=== PATIENT | female | born 1930 | race Caucasian/White ===

== ENCOUNTER → 2016-05-07 | Outpatient (CLI) | payer MEDICARE, OTHER | LOC: MW.CHORTHO 08:00 | CPT/HCPCS: 20610-50; G0463; J1040 ==

== ENCOUNTER 2017-03-08 12:45 | Emergency (ER) | payer MEDICARE, OTHER ==
[2017-03-08] MEDS ORDERED: Sodium Chloride 0.9% 1,000 ML IV ONE (13:00)
--- NOTE | 2017-03-08 13:22 | EDM.PDOC ---
ED HPI GENERAL MEDICAL PROBLEM - General Chief Complaint: Gastrointestinal Problem Stated Complaint: POSSIBLE FLU Time Seen by Provider: 03/08/17 13:00 Source of Information: Reports: Patient History Limitations: Reports: No Limitations - History of Present Illness INITIAL COMMENTS - FREE TEXT/NARRATIVE: History of present illness: [86-year-old female comes in complaining that she feels she has the flu. Patient indicates she's been unwell off and on for last couple months. Patient indicates she's been unable to eat.] Review of systems: As per history of present illness and below otherwise all systems reviewed and negative. Past medical history: As per history of present illness and as reviewed below otherwise noncontributory. Surgical history: As per history of present illness and as reviewed below otherwise noncontributory. Social history: No reported history of drug or alcohol abuse. Family history: As per history of present illness and as reviewed below otherwise noncontributory. Physical exam: HEENT: Atraumatic, normocephalic, pupils reactive, negative for conjunctival pallor or scleral icterus, mucous membranes moist, throat clear, neck supple, nontender, trachea midline. Lungs: Clear to auscultation, breath sounds equal bilaterally, chest nontender. Heart: S1S2, regular, negative for clicks, rubs, or JVD. Abdomen: Soft, nondistended, nontender. Negative for masses or hepatosplenomegaly. Negative for costovertebral tenderness. Pelvis: Stable nontender. Genitourinary: Deferred. Rectal: Deferred. Extremities: Atraumatic, negative for cords or calf pain. Neurovascular unremarkable. Neuro: Awake, alert, oriented. Cranial nerves II through XII unremarkable. Cerebellum unremarkable. Motor and sensory unremarkable throughout. Exam nonfocal. Labs are within normal limits influenza is negative Patient acknowledges that she could eat a popsicle at this time and no longer feels unwell she just doesn't have an appetite. Diagnostics: [CBC, CMP, influenza and B] Therapeutics: [] Impression: Worried well[] Plan: [Follow-up with primary care provider] Definitive disposition and diagnosis as appropriate pending reevaluation and review of above. - Related Data Allergies Allergy/AdvReac Type Severity Reaction Status Date / Time Penicillins Allergy Swelling Verified 03/08/17 12:55 procaine HCl [From Novocain] Allergy Difficulty Verified 03/08/17 12:55 Breathing Sulfa (Sulfonamide Allergy Cannot Verified 03/08/17 12:55 Antibiotics) Remember Home Meds: Home Meds Gabapentin [Neurontin] 600 mg PO BID 07/22/15 [History] amLODIPine Besylate [Amlodipine Besylate] 1 tab PO DAILY 07/22/15 [History] Erythromycin Base [Erythromycin 0.5% Ophth Oint] 1 applic EYEBOTH BEDTIME [History] Carboxymethylcellulose Sodium [Refresh Celluvisc] 1 drop EYEBOTH QID 09/21/15 [ History] Levothyroxine [Synthroid] 100 mcg PO ACBREAKFAST 09/21/15 [History] Losartan [Cozaar] 100 mg PO DAILY 09/21/15 [History] atorvaSTATin [Lipitor] 40 mg PO BEDTIME 09/21/15 [History] prednisoLONE Acetate [Pred Forte 1% Ophth Susp] 1 drop EYELF DAILY 09/21/15 [ History] Polyvinyl Alcohol [LiquiTears 1.4% Ophth Soln] 1 drop EYEBOTH QID PRN #0 bottle 09/22/15 [Rx] Acyclovir 400 mg PO BID 03/08/17 [History] Ascorbic Acid [Vitamin C] 1,000 mg PO DAILY 03/08/17 [History] Aspirin [Halfprin] 81 mg PO DAILY 03/08/17 [History] Cholecalciferol (Vitamin D3) [Vitamin D3] 1,000 unit PO DAILY 03/08/17 [History] Denosumab [Xgeva] 60 mg PO DAILY 03/08/17 [History] Psyllium [Metamucil] 0.52 gm PO DAILY 03/08/17 [History] guaiFENesin/Codeine Phosphate [Codeine-Guaifen 10-100 mg/5 ml] 5 ml PO DAILY 04/24 [History] Past Medical History HEENT History: Reports: None Cardiovascular History: Reports: High Cholesterol, Hypertension Respiratory History: Reports: COPD Gastrointestinal History: Reports: Diverticulosis Genitourinary History: Reports: None 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 DEAN History: Reports: None Musculoskeletal History: Reports: None Neurological History: Reports: Other (See Below) Other Neuro History: facial nerve pain Psychiatric History: Reports: None Endocrine/Metabolic History: Reports: Hypothyroidism Hematologic History: Reports: None Immunologic History: Reports: None Oncologic (Cancer) History: Reports: None Dermatologic History: Reports: None - Infectious Disease History Infectious Disease History: Reports: Chicken Pox, Shingles - Past Surgical History Head Surgeries/Procedures: Reports: None HEENT Surgical History: Reports: Other (See Below) Other HEENT Surgeries/Procedures: cornea transplant Cardiovascular Surgical History: Reports: None Respiratory Surgical History: Reports: None GI Surgical History: Reports: None Female Surgical History: Reports: None Endocrine Surgical History: Reports: None Musculoskeletal Surgical History: Reports: Other (See Below) Social & Family History - Family History Family Medical History: Noncontributory - Tobacco Use Smoking Status *Q: Never Smoker Second Hand Smoke Exposure: No - Caffeine Use Caffeine Use: Reports: Coffee - Recreational Drug Use Recreational Drug Use: No ED ROS GENERAL - Review of Systems Review Of Systems: See Below (History of present illness) ED EXAM, GENERAL - Physical Exam Exam: See Below (History of present illness) Course - Vital Signs Last Recorded V/S: Last Vital Signs Temp 36.7 C 03/08/17 12:56 Pulse 98 03/08/17 12:56 Resp 18 03/08/17 12:56 BP 131/63 03/08/17 12:56 Pulse Ox 97 03/08/17 12:56 - Orders/Labs/Meds Labs: Laboratory Tests 03/08/17 03/08/17 Range/Units 13:18 13:18 WBC 7.71 (4.0-11.0) K/uL RBC 4.05 L (4.30-5.90) M/uL Hgb 13.2 (12.0-16.0) g/dL Hct 39.4 (36.0-46.0) % MCV 97.3 (80.0-98.0) fL MCH 32.6 H (27.0-32.0) pg MCHC 33.5 (31.0-37.0) g/dL RDW Std Deviation 48.5 (28.0-62.0) fl RDW Coeff of Josselyn 14 (11.0-15.0) % Plt Count 245 (150-400) K/uL MPV 10.30 (7.40-12.00) fL Neut % (Auto) 67.8 (48.0-80.0) % Lymph % (Auto) 21.7 (16.0-40.0) % [place] % (Auto) 9.7 (0.0-15.0) % Eos % (Auto) 0.5 (0.0-7.0) % Baso % (Auto) 0.3 (0.0-1.5) % Neut # (Auto) 5.2 (1.4-5.7) K/uL Lymph # (Auto) 1.7 (0.6-2.4) K/uL [place] # (Auto) 0.8 (0.0-0.8) K/uL Eos # (Auto) 0.0 (0.0-0.7) K/uL Baso # (Auto) 0.0 (0.0-0.1) K/uL Nucleated RBC % 0.0 /100WBC Nucleated RBCs # 0 K/uL Sodium 142 (136-146) mmol/L Potassium 3.5 (3.5-5.1) mmol/L Chloride 109 (98-110) mmol/L Carbon Dioxide 16 L (21-31) mmol/L BUN 27 H (6.0-23.0) mg/dL Creatinine 1.3 (0.6-1.5) mg/dL Est Cr Clr Drug Dosing 26.76 mL/min Estimated GFR (MDRD) 38.7 ml/min Glucose 101 (60-110) mg/dL Calcium 9.0 (8.8-10.8) mg/dL Total Bilirubin 0.7 (0.1-1.5) mg/dL AST 26 (5-40) IU/L ALT 23 (8-54) IU/L Alkaline Phosphatase 50 (40-150) Total Protein 6.8 (6.0-8.0) g/dL Albumin 3.9 (3.4-4.8) g/dL Globulin 2.9 (2.0-3.5) g/dL Albumin/Globulin Ratio 1.3 (1.3-2.8) Meds: Medications Discontinued Medications Generic Name Dose Route Start Last Admin Trade Name Freq PRN Reason Stop Dose Admin Sodium Chloride 1,000 mls @ 999 mls/hr 03/08/17 13:00 Normal Saline IV 03/08/17 14:00 STAT ONE Departure - Departure Time of Disposition: 14:55 Disposition: Home, Self-Care 01 Condition: Good Clinical Impression: Physically well but worried - Discharge Information Referrals: James Foster MD [Primary Care Provider] - Forms: ED Department Discharge Additional Instructions: The following information is given to patients seen in the emergency department who are being discharged to home. This information is to outline your options for follow-up care. We provide all patients seen in our emergency department with a follow-up referral. The need for follow-up, as well as the timing and circumstances, are variable depending upon the specifics of your emergency department visit. If you don't have a primary care physician on staff, we will provide you with a referral. We always advise you to contact your personal physician following an emergency department visit to inform them of the circumstance of the visit and for follow-up with them and/or the need for any referrals to a consulting specialist. The emergency department will also refer you to a specialist when appropriate. This referral assures that you have the opportunity for follow-up care with a specialist. All of these measure are taken in an effort to provide you with optimal care, which includes your follow-up. Under all circumstances we always encourage you to contact your private physician who remains a resource for coordinating your care. When calling for follow-up care, please make the office aware that this follow-up is from your recent emergency room visit. If for any reason you are refused follow-up, please contact the [facility] Emergency Department at and asked to speak to the emergency department charge nurse. Follow-up with your primary care as discussed Return to ED as needed as discussed
[2017-03-08 15:27] VITALS: BP 180/78
== END 2017-03-08 15:22 | disposition home or self-care (01) ==
LOC: MW.ED 12:45
DX: Z71.1 Person with feared health complaint in whom no diagnosis is made (principal); E78.00 Pure hypercholesterolemia, unspecified; I10 Essential (primary) hypertension; Z88.0 Allergy status to penicillin; Z88.2 Allergy status to sulfonamides; Z79.899 Other long term (current) drug therapy; Z79.82 Long term (current) use of aspirin
CPT/HCPCS: 36415; 80053; 85025; 87804; 99283; J7040; 99282

== ENCOUNTER 2017-03-08 22:44 | Emergency (ER) | payer MEDICARE, OTHER ==
[2017-03-08 23:48] VITALS: BP 142/69
--- NOTE | 2017-03-09 00:10 | EDM.PDOC ---
ED HPI GENERAL MEDICAL PROBLEM - General Chief Complaint: Head Injury Stated Complaint: FALL/HIT HEAD Time Seen by Provider: 03/09/17 00:08 Source of Information: Reports: Patient History Limitations: Reports: No Limitations - History of Present Illness INITIAL COMMENTS - FREE TEXT/NARRATIVE: History of present illness: [86-year-old female seen by me earlier today returns today status post mechanical fall. Patient indicates that she was turning and had too much momentum and lost her balance and fell over. Patient denies any loss of consciousness and stated that after she gone to bed she did feel some transient nausea called her grandson who is a physician who recommended she come in and have her head scan. Patient indicates that she feels fine but is willing to comply with the head scan secondary to the wishes of her grandson] Review of systems: As per history of present illness and below otherwise all systems reviewed and negative. Past medical history: As per history of present illness and as reviewed below otherwise noncontributory. Surgical history: As per history of present illness and as reviewed below otherwise noncontributory. Social history: No reported history of drug or alcohol abuse. Family history: As per history of present illness and as reviewed below otherwise noncontributory. Physical exam: HEENT: Atraumatic, normocephalic, pupils reactive, negative for conjunctival pallor or scleral icterus, mucous membranes moist, throat clear, neck supple, nontender, trachea midline. Lungs: Clear to auscultation, breath sounds equal bilaterally, chest nontender. Heart: S1S2, regular, negative for clicks, rubs, or JVD. Abdomen: Soft, nondistended, nontender. Negative for masses or hepatosplenomegaly. Negative for costovertebral tenderness. Pelvis: Stable nontender. Genitourinary: Deferred. Rectal: Deferred. Extremities: Atraumatic, negative for cords or calf pain. Neurovascular unremarkable. Neuro: Awake, alert, oriented. Cranial nerves II through XII unremarkable. Cerebellum unremarkable. Motor and sensory unremarkable throughout. Exam nonfocal. All assessment is benign CT of head is negative for acute changes Diagnostics: [] Therapeutics: [] Impression: [Mechanical fall] Plan: [Follow up with primary care] Definitive disposition and diagnosis as appropriate pending reevaluation and review of above. Occipital Head Pain Score (Numeric/FACES): 2 - Related Data Allergies Allergy/AdvReac Type Severity Reaction Status Date / Time Penicillins Allergy Swelling Verified 03/08/17 12:55 procaine HCl [From Novocain] Allergy Difficulty Verified 03/08/17 12:55 Breathing Sulfa (Sulfonamide Allergy Cannot Verified 03/08/17 12:55 Antibiotics) Remember Home Meds: Home Meds Gabapentin [Neurontin] 600 mg PO BID 07/22/15 [History] amLODIPine Besylate [Amlodipine Besylate] 1 tab PO DAILY 07/22/15 [History] Erythromycin Base [Erythromycin 0.5% Ophth Oint] 1 applic EYEBOTH BEDTIME [History] Carboxymethylcellulose Sodium [Refresh Celluvisc] 1 drop EYEBOTH QID 09/21/15 [ History] Levothyroxine [Synthroid] 100 mcg PO ACBREAKFAST 09/21/15 [History] Losartan [Cozaar] 100 mg PO DAILY 09/21/15 [History] atorvaSTATin [Lipitor] 40 mg PO BEDTIME 09/21/15 [History] prednisoLONE Acetate [Pred Forte 1% Ophth Susp] 1 drop EYELF DAILY 09/21/15 [ History] Polyvinyl Alcohol [LiquiTears 1.4% Ophth Soln] 1 drop EYEBOTH QID PRN #0 bottle 09/22/15 [Rx] Acyclovir 400 mg PO BID 03/08/17 [History] Ascorbic Acid [Vitamin C] 1,000 mg PO DAILY 03/08/17 [History] Aspirin [Halfprin] 81 mg PO DAILY 03/08/17 [History] Cholecalciferol (Vitamin D3) [Vitamin D3] 1,000 unit PO DAILY 03/08/17 [History] Denosumab [Xgeva] 60 mg PO DAILY 03/08/17 [History] Psyllium [Metamucil] 0.52 gm PO DAILY 03/08/17 [History] guaiFENesin/Codeine Phosphate [Codeine-Guaifen 10-100 mg/5 ml] 5 ml PO DAILY 04/24 [History] Past Medical History HEENT History: Reports: None Cardiovascular History: Reports: High Cholesterol, Hypertension Respiratory History: Reports: COPD Gastrointestinal History: Reports: Diverticulosis Genitourinary History: Reports: None BASKET MENDER History: Reports: None Musculoskeletal History: Reports: None Neurological History: Reports: Other (See Below) Other Neuro History: facial nerve pain Psychiatric History: Reports: None Endocrine/Metabolic History: Reports: Hypothyroidism Hematologic History: Reports: None Immunologic History: Reports: None Oncologic (Cancer) History: Reports: None Dermatologic History: Reports: None - Infectious Disease History Infectious Disease History: Reports: Chicken Pox, Shingles - Past Surgical History Head Surgeries/Procedures: Reports: None HEENT Surgical History: Reports: Other (See Below) Other HEENT Surgeries/Procedures: cornea transplant Cardiovascular Surgical History: Reports: None Respiratory Surgical History: Reports: None GI Surgical History: Reports: None Female Surgical History: Reports: None Endocrine Surgical History: Reports: None Musculoskeletal Surgical History: Reports: Other (See Below) Social & Family History - Family History Family Medical History: Noncontributory - Tobacco Use Smoking Status *Q: Never Smoker Second Hand Smoke Exposure: No - Caffeine Use Caffeine Use: Reports: Coffee - Recreational Drug Use Recreational Drug Use: No ED ROS GENERAL - Review of Systems Review Of Systems: See Below (The history of present illness) ED EXAM, HEAD INJURY - Physical Exam Exam: See Below (History of present illness) Course - Vital Signs Last Recorded V/S: Last Vital Signs Temp 37.2 C 03/08/17 23:33 Pulse 79 03/08/17 23:33 Resp 18 03/08/17 23:33 BP 142/69 H 03/08/17 23:33 Pulse Ox 95 03/08/17 23:33 - Orders/Labs/Meds Orders: Active Orders 24 hr Category Date Time Status Head wo Cont [CT] Stat Exams 03/08/17 23:02 Taken Departure - Departure Time of Disposition: 00:09 Disposition: Home, Self-Care 01 Condition: Good Clinical Impression: Fall - Discharge Information Instructions: Concussion, Adult, [id number], Head Injury, Adult, [id number] , Post-Concussion Syndrome, [id number] Referrals: PCP,None [Primary Care Provider] - Additional Instructions: The following information is given to patients seen in the emergency department who are being discharged to home. This information is to outline your options for follow-up care. We provide all patients seen in our emergency department with a follow-up referral. The need for follow-up, as well as the timing and circumstances, are variable depending upon the specifics of your emergency department visit. If you don't have a primary care physician on staff, we will provide you with a referral. We always advise you to contact your personal physician following an emergency department visit to inform them of the circumstance of the visit and for follow-up with them and/or the need for any referrals to a consulting specialist. The emergency department will also refer you to a specialist when appropriate. This referral assures that you have the opportunity for follow-up care with a specialist. All of these measure are taken in an effort to provide you with optimal care, which includes your follow-up. Under all circumstances we always encourage you to contact your private physician who remains a resource for coordinating your care. When calling for follow-up care, please make the office aware that this follow-up is from your recent emergency room visit. If for any reason you are refused follow-up, please contact the [facility] Emergency Department at and asked to speak to the emergency department charge nurse. You're being discharged to home per your request Please follow-up with your primary care as discussed Return to ED as needed as discussed - My Orders Last 24 Hours: My Active Orders 03/08/17 23:02 Head wo Cont [CT] Stat - Assessment/Plan Last 24 Hours: My Active Orders 03/08/17 23:02 Head wo Cont [CT] Stat
--- NOTE | 2017-03-09 10:44 | CT ---
EXAM DATE: 03/08/17 PATIENT'S AGE: 86 Patient: ANNA SCHULTZ Facility: [place], [place] Site . Site : [id number] Study: CT Head WO CONT [id number] 11:19:22 PM Ordering Physician: Doctor Savage Final Report: INDICATION: 86-year-old female. Status post fall, hitting back of head earlier tonight. TECHNIQUE: CT Head without i.v. contrast. COMPARISON: None FINDINGS: CSF spaces: Within normal limits for age. Brain parenchyma: Mild diffuse cortical atrophy is noted. There are low attenuation white matter changes, likely due to chronic microvascular disease. The brain parenchyma is normal in appearance with preservation of the nicholas- white matter junction. No sign of mass, hemorrhage, or midline shift seen. Skull base and calvarium: The visualized paranasal sinuses are well aerated. The mastoid air cells are clear. The visualized orbits are grossly unremarkable. No skull fractures are seen. IMPRESSION: 1. No evidence of acute infarction, intracranial hemorrhage, or mass effect seen. 2. Mild age-related atrophy and chronic microvascular disease. Dictated by Ez Wright MD @ 03/08/2017 11:37:24 PM Dictated by: Ez Wright MD @ 03/08/2017 23:37:30 (Electronic Signature) Report Signed by Proxy. [facility]
== END 2017-03-09 00:37 | disposition home or self-care (01) ==
LOC: MW.ED 22:44
DX: S09.90XA Unspecified injury of head, initial encounter (principal); I10 Essential (primary) hypertension; E78.00 Pure hypercholesterolemia, unspecified; J44.9 Chronic obstructive pulmonary disease, unspecified; Z79.82 Long term (current) use of aspirin; Z79.899 Other long term (current) drug therapy; Z88.0 Allergy status to penicillin; Z88.2 Allergy status to sulfonamides; W01.198A Fall on same level from slipping, tripping and stumbling with subsequent striking against other object, initial encounter; Z71.1 Person with feared health complaint in whom no diagnosis is made
CPT/HCPCS: 36415; 70450; 80053; 85025; 87804; 99283; J7040; 99282

== ENCOUNTER 2017-04-19 11:07 | Emergency (ER) | payer MEDICARE, OTHER ==
[2017-04-19] MEDS ORDERED: Sodium Chloride 0.9% 500 ML IV SCH (12:30)
[2017-04-19] MEDS ORDERED: Ondansetron 4 MG/2 ML SDV IVPUSH ONE (12:30)
--- NOTE | 2017-04-19 12:33 | EDM.PDOC ---
ED HPI GENERAL MEDICAL PROBLEM - General Chief Complaint: Abdominal Pain Stated Complaint: PT SAY SHE FEELS SICK TO HER STOMACH Time Seen by Provider: 04/19/17 12:15 Source of Information: Reports: Patient, Family History Limitations: Reports: No Limitations - History of Present Illness INITIAL COMMENTS - FREE TEXT/NARRATIVE: HISTORY AND PHYSICAL: History of present illness: [Comes to the emergency room accompanied by her daughter. Patient states that she woke up this morning feeling nauseated. She had several episodes of diarrhea yesterday but has not had any vomiting. No blood in her stools. Her appetite is decreased due to the nausea. Has had several UTI's over the past couple months. Follows regularly w/ Dr. Foster. Had abdominal U/S in the past couple of weeks, with normal results. Daughter states that mom has been experiencing episodes of nausea for the last several months and no cause has been identified No fever or chills. no recent illness or infection. No flulike symptoms. No muscle or joint aches or pains. Denies chest pain, SOA, difficulty breathing. Denies abd pain. No burning w/ urination or urinary frequency. ] Review of systems: As per history of present illness and below otherwise all systems reviewed and negative. Past medical history: As per history of present illness and as reviewed below otherwise noncontributory. Surgical history: As per history of present illness and as reviewed below otherwise noncontributory. Social history: No reported history of drug or alcohol abuse. Family history: As per history of present illness and as reviewed below otherwise noncontributory. Physical exam: HEENT: Atraumatic, normocephalic. Oral mucous membranes are mildly dry. Neck supple, no lymphadenopathy. Skin: Warm dry, frail and thin. Lungs: Clear to auscultation, breath sounds equal bilaterally. Heart: S1S2, regular rate and rhythm. Abdomen: Bowel sounds are normal active throughout. Abdomen is soft, nondistended, nontender. Negative for masses, guarding or rebound. Pelvis: Stable nontender. Genitourinary: Deferred. Rectal: Deferred. Extremities: Atraumatic, no cyanosis or edema to feet or lower legs. Neurovascular unremarkable. Neuro: Awake, alert, oriented. Motor and sensory unremarkable throughout. Exam nonfocal. Diagnostics: [CBC, CMP, UA, amylase, lipase] Therapeutics: [500mL NS, Zofran 4mg IV] Impression: [Nausea] Plan: [Patient's nausea improved with Zofran and 500 mL as normal saline. Labs are unremarkable except slight bump in amylase. Offered CT scan of abdomen which patient declined stating that she would like to follow-up with Dr. Foster for any more testing is done. I agree with patient's decision particularly for the amount of time that she's had these symptoms. Strict return precautions are reviewed. Patient verbalized understanding of today's discussion.] Definitive disposition and diagnosis as appropriate pending reevaluation and review of above. - Related Data Allergies Allergy/AdvReac Type Severity Reaction Status Date / Time Penicillins Allergy Swelling Verified 04/19/17 11:24 procaine HCl [From Novocain] Allergy Difficulty Verified 04/19/17 11:24 Breathing Sulfa (Sulfonamide Allergy Cannot Verified 04/19/17 11:24 Antibiotics) Remember Home Meds: Home Meds Gabapentin [Neurontin] 600 mg PO BID 07/22/15 [History] amLODIPine Besylate [Amlodipine Besylate] 1 tab PO DAILY 07/22/15 [History] Erythromycin Base [Erythromycin 0.5% Ophth Oint] 1 applic EYEBOTH BEDTIME [History] Carboxymethylcellulose Sodium [Refresh Celluvisc] 1 drop EYEBOTH QID 09/21/15 [ History] Levothyroxine [Synthroid] 100 mcg PO ACBREAKFAST 09/21/15 [History] Losartan [Cozaar] 100 mg PO DAILY 09/21/15 [History] atorvaSTATin [Lipitor] 40 mg PO BEDTIME 09/21/15 [History] prednisoLONE Acetate [Pred Forte 1% Ophth Susp] 1 drop EYELF DAILY 09/21/15 [ History] Polyvinyl Alcohol [LiquiTears 1.4% Ophth Soln] 1 drop EYEBOTH QID PRN #0 bottle 09/22/15 [Rx] Acyclovir 400 mg PO BID 03/08/17 [History] Ascorbic Acid [Vitamin C] 1,000 mg PO DAILY 03/08/17 [History] Aspirin [Halfprin] 81 mg PO DAILY 03/08/17 [History] Cholecalciferol (Vitamin D3) [Vitamin D3] 1,000 unit PO DAILY 03/08/17 [History] Denosumab [Xgeva] 60 mg PO DAILY 03/08/17 [History] Psyllium [Metamucil] 0.52 gm PO DAILY 03/08/17 [History] guaiFENesin/Codeine Phosphate [Codeine-Guaifen 10-100 mg/5 ml] 5 ml PO DAILY 04/24 [History] Past Medical History HEENT History: Reports: None Cardiovascular History: Reports: High Cholesterol, Hypertension Respiratory History: Reports: COPD Gastrointestinal History: Reports: Diverticulosis Genitourinary History: Reports: UTI, Recurrent 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: Reports: None Musculoskeletal History: Reports: None Neurological History: Reports: Other (See Below) Other Neuro History: facial nerve pain Psychiatric History: Reports: None Endocrine/Metabolic History: Reports: Hypothyroidism Hematologic History: Reports: None Immunologic History: Reports: None Oncologic (Cancer) History: Reports: None Dermatologic History: Reports: None - Infectious Disease History Infectious Disease History: Reports: Chicken Pox, Measles, Mumps, Shingles - Past Surgical History Head Surgeries/Procedures: Reports: None HEENT Surgical History: Reports: Other (See Below) Other HEENT Surgeries/Procedures: 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 Cardiovascular Surgical History: Reports: None Respiratory Surgical History: Reports: None GI Surgical History: Reports: None Female Surgical History: Reports: None Endocrine Surgical History: Reports: None Musculoskeletal Surgical History: Reports: Other (See Below) Social & Family History - Family History Family Medical History: Noncontributory - Tobacco Use Smoking Status *Q: Never Smoker Second Hand Smoke Exposure: No - Caffeine Use Caffeine Use: Reports: Coffee - Recreational Drug Use Recreational Drug Use: No ED ROS GENERAL - Review of Systems Review Of Systems: See Below ED EXAM, GI/ABD - Physical Exam Exam: See Below Course - Vital Signs Last Recorded V/S: Last Vital Signs Temp 99.6 F 04/19/17 11:20 Pulse 83 04/19/17 14:51 Resp 18 04/19/17 14:51 BP 126/62 04/19/17 14:51 Pulse Ox 98 04/19/17 14:51 - Orders/Labs/Meds Orders: Active Orders 24 hr Category Date Time Status UA W/MICROSCOPIC [URIN] Stat Lab 04/19/17 13:58 Ordered Labs: Laboratory Tests 02/13/18 02/13/18 Range/Units 12:44 12:44 WBC 4.39 (4.0-11.0) K/uL RBC 3.37 L (4.30-5.90) M/uL Hgb 10.9 L (12.0-16.0) g/dL Hct 33.3 L (36.0-46.0) % MCV 98.8 H (80.0-98.0) fL MCH 32.3 H (27.0-32.0) pg MCHC 32.7 (31.0-37.0) g/dL RDW Std Deviation 48.4 (28.0-62.0) fl RDW Coeff of Josselyn 13 (11.0-15.0) % Plt Count 184 (150-400) K/uL MPV 10.30 (7.40-12.00) fL Add Manual Diff YES Neutrophils % (Manual) 51 (48.0-80.0) % Band Neutrophils % 1 % Lymphocytes % (Manual) 28 (16.0-40.0) % Monocytes % (Manual) 17 H (0.0-15.0) % Eosinophils % (Manual) 2 (0.0-7.0) % Basophils % (Manual) 1 (0.0-1.5) % Nucleated RBC % 0.0 /100WBC Absolute Seg Neuts 2.2 (1.4-5.7) Band Neutrophils # 0 Lymphocytes # (Manual) 1.2 (0.6-2.4) Monocytes # (Manual) 0.7 (0.0-0.8) Eosinophils # (Manual) 0.1 (0.0-0.7) Basophils # (Manual) 0.0 (0.0-0.1) Nucleated RBCs # 0 K/uL Sodium 140 (136-146) mmol/L Potassium 4.1 (3.5-5.1) mmol/L Chloride 107 (98-110) mmol/L Carbon Dioxide 22 (21-31) mmol/L BUN 28 H (6.0-23.0) mg/dL Creatinine 1.0 (0.6-1.5) mg/dL Est Cr Clr Drug Dosing 28.47 mL/min Estimated GFR (MDRD) 52.4 ml/min Glucose 104 (60-110) mg/dL Calcium 9.2 (8.8-10.8) mg/dL Total Bilirubin 0.4 (0.1-1.5) mg/dL AST 27 (5-40) IU/L ALT 16 (8-54) IU/L Alkaline Phosphatase 48 (40-150) Total Protein 6.0 (6.0-8.0) g/dL Albumin 3.6 (3.4-4.8) g/dL Globulin 2.4 (2.0-3.5) g/dL Albumin/Globulin Ratio 1.5 (1.3-2.8) Amylase 93 H (10-90) U/L Lipase 10 (7-80) U/L Meds: Medications Discontinued Medications Generic Name Dose Route Start Last Admin Trade Name Freq PRN Reason Stop Dose Admin Sodium Chloride 500 mls @ 999 mls/hr 04/19/17 12:30 04/19/17 13:12 Normal Saline IV 999 mls/hr STAT RIGOBERTO Administration Ondansetron HCl 4 mg 04/19/17 12:30 04/19/17 12:45 Zofran IVPUSH 04/19/17 12:31 4 mg ONETIME ONE Administration Departure - Departure Time of Disposition: 14:35 Disposition: Home, Self-Care 01 Condition: Good Clinical Impression: Nausea - Discharge Information Instructions: Nausea, Adult, [id number] Referrals: James Foster MD [Primary Care Provider] - Forms: ED Department Discharge Additional Instructions: The following information is given to patients seen in the emergency department who are being discharged to home. This information is to outline your options for follow-up care. We provide all patients seen in our emergency department with a follow-up referral. The need for follow-up, as well as the timing and circumstances, are variable depending upon the specifics of your emergency department visit. If you don't have a primary care physician on staff, we will provide you with a referral. We always advise you to contact your personal physician following an emergency department visit to inform them of the circumstance of the visit and for follow-up with them and/or the need for any referrals to a consulting specialist. The emergency department will also refer you to a specialist when appropriate. This referral assures that you have the opportunity for follow-up care with a specialist. All of these measure are taken in an effort to provide you with optimal care, which includes your follow-up. Under all circumstances we always encourage you to contact your private physician who remains a resource for coordinating your care. When calling for follow-up care, please make the office aware that this follow-up is from your recent emergency room visit. If for any reason you are refused follow-up, please contact the [facility] emergency department at and asked to speak to the emergency department charge nurse. [address] [address] Follow-up with your primary care provider at the clinic listed above in the next 48-72 hours. Push fluids as much as possible. Return to ER as needed as discussed. - My Orders Last 24 Hours: My Active Orders 04/19/17 13:58 UA W/MICROSCOPIC [URIN] Stat - Assessment/Plan Last 24 Hours: My Active Orders 04/19/17 13:58 UA W/MICROSCOPIC [URIN] Stat
[2017-04-19 16:22] VITALS: BP 126/62
== END 2017-04-19 14:51 | disposition home or self-care (01) ==
LOC: MW.ED 11:07
DX: R11.0 Nausea (principal); I10 Essential (primary) hypertension; E78.00 Pure hypercholesterolemia, unspecified; J44.9 Chronic obstructive pulmonary disease, unspecified; E03.9 Hypothyroidism, unspecified; Z79.82 Long term (current) use of aspirin; Z79.899 Other long term (current) drug therapy; Z88.0 Allergy status to penicillin; Z88.2 Allergy status to sulfonamides; Z88.6 Allergy status to analgesic agent
CPT/HCPCS: 36415; 80053; 82150; 83690; 85025; 96361; 96374; 99284; J2405; J7040; 99283

== ENCOUNTER 2017-05-11 11:33 | Emergency (ER) | payer MEDICARE, OTHER ==
--- NOTE | 2017-05-11 12:41 | EDM.PDOC ---
ED HPI GENERAL MEDICAL PROBLEM - General Chief Complaint: Back Pain or Injury Stated Complaint: BACK PAIN/NOT FEELING WELL Time Seen by Provider: 05/11/17 11:50 Source of Information: Reports: Patient History Limitations: Reports: No Limitations - History of Present Illness INITIAL COMMENTS - FREE TEXT/NARRATIVE: History of present illness: []Patient has had low back pain since February 2017 that is intermittent and worsening. He was diagnosed with sciatica with pain going down to her buttocks which has improved and then 2 weeks ago has and having worsening left sided low back pain over her iliac joint. She denies any falls or trauma, difficulty urinating, fevers, chills, nausea, vomiting or diarrhea. Patient fractured her shoulder in 2016 is requesting the pain med that she receives then. Review of systems: As per history of present illness and below otherwise all systems reviewed and negative. Past medical history: As per history of present illness and as reviewed below otherwise noncontributory. Surgical history: As per history of present illness and as reviewed below otherwise noncontributory. Social history: No reported history of drug or alcohol abuse. Family history: As per history of present illness and as reviewed below otherwise noncontributory. Physical exam: General: Well developed, well nourished in NAD HEENT: Atraumatic, normocephalic, pupils reactive, negative for conjunctival pallor or scleral icterus, mucous membranes moist, throat clear, neck supple, nontender, trachea midline. Lungs: Clear to auscultation, breath sounds equal bilaterally, chest nontender. Heart: S1S2, regular, negative for clicks, rubs, or JVD. Abdomen: Soft, nondistended, nontender. Negative for masses or hepatosplenomegaly. Negative for costovertebral tenderness. Pelvis: Stable nontender. Genitourinary: Deferred. Rectal: Deferred. Extremities: Atraumatic, negative for cords or calf pain. Neurovascular unremarkable. Neuro: Awake, alert, oriented. Cranial nerves II through XII unremarkable. Cerebellum unremarkable. Motor and sensory unremarkable throughout. Exam nonfocal. Diagnostics: []X-rays pelvis and lumbar spine show degenerative changes with no acute findings Therapeutics: []Patient declined pain meds in the ED Impression: []Degenerative joint disease Plan: []Percocet as directed for pain 30 tablets 5/325mg given with no refills follow up with primary care as needed. Definitive disposition and diagnosis as appropriate pending reevaluation and review of above. Lower Back Pain Score (Numeric/FACES): 5 - Related Data Allergies Allergy/AdvReac Type Severity Reaction Status Date / Time Penicillins Allergy Swelling Verified 05/11/17 11:52 procaine HCl [From Novocain] Allergy Difficulty Verified 05/11/17 11:52 Breathing Sulfa (Sulfonamide Allergy Cannot Verified 05/11/17 11:52 Antibiotics) Remember Home Meds: Home Meds Gabapentin [Neurontin] 600 mg PO BID 07/22/15 [History] amLODIPine Besylate [Amlodipine Besylate] 1 tab PO DAILY 07/22/15 [History] Carboxymethylcellulose Sodium [Refresh Celluvisc] 1 drop EYEBOTH QID 09/21/15 [ History] Levothyroxine [Synthroid] 100 mcg PO ACBREAKFAST 09/21/15 [History] Losartan [Cozaar] 100 mg PO DAILY 09/21/15 [History] atorvaSTATin [Lipitor] 40 mg PO BEDTIME 09/21/15 [History] prednisoLONE Acetate [Pred Forte 1% Ophth Susp] 1 drop EYELF DAILY PRN 09/21/15 [History] Polyvinyl Alcohol [LiquiTears 1.4% Ophth Soln] 1 drop EYEBOTH QID PRN #0 bottle 09/22/15 [Rx] Acyclovir 400 mg PO BID 03/08/17 [History] Ascorbic Acid [Vitamin C] 1,000 mg PO DAILY 03/08/17 [History] Aspirin [Halfprin] 81 mg PO DAILY 03/08/17 [History] Cholecalciferol (Vitamin D3) [Vitamin D3] 1,000 unit PO DAILY 03/08/17 [History] Denosumab [Xgeva] 60 mg PO DAILY 03/08/17 [History] Psyllium [Metamucil] 0.52 gm PO DAILY 03/08/17 [History] guaiFENesin/Codeine Phosphate [Codeine-Guaifen 10-100 mg/5 ml] 5 ml PO DAILY 04/24 [History] Past Medical History HEENT History: Reports: None Cardiovascular History: Reports: High Cholesterol, Hypertension Respiratory History: Reports: COPD Gastrointestinal History: Reports: Diverticulosis Genitourinary History: Reports: UTI, Recurrent 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 Musculoskeletal History: Reports: None Neurological History: Reports: Other (See Below) Other Neuro History: facial nerve pain Psychiatric History: Reports: None Endocrine/Metabolic History: Reports: Hypothyroidism Hematologic History: Reports: None Immunologic History: Reports: None Oncologic (Cancer) History: Reports: None Dermatologic History: Reports: None - Infectious Disease History Infectious Disease History: Reports: Chicken Pox, Measles, Mumps, Shingles - Past Surgical History Head Surgeries/Procedures: Reports: None HEENT Surgical History: Reports: Other (See Below) Other HEENT Surgeries/Procedures: 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 Cardiovascular Surgical History: Reports: None Respiratory Surgical History: Reports: None GI Surgical History: Reports: None Female Surgical History: Reports: None Endocrine Surgical History: Reports: None Musculoskeletal Surgical History: Reports: Other (See Below) Social & Family History - Family History Family Medical History: Noncontributory - Tobacco Use Smoking Status *Q: Never Smoker Second Hand Smoke Exposure: No - Caffeine Use Caffeine Use: Reports: Coffee - Recreational Drug Use Recreational Drug Use: No ED ROS GENERAL - Review of Systems Review Of Systems: See Below (See history of present illness) ED EXAM,LOWER BACK PAIN/INJURY - Physical Exam Exam: See Below (See history of present illness) Course - Vital Signs Last Recorded V/S: Last Vital Signs Temp 99.0 F 05/11/17 11:48 Pulse 96 05/11/17 11:48 Resp 18 05/11/17 11:48 BP 162/70 H 05/11/17 11:48 Pulse Ox 99 05/11/17 11:48 - Orders/Labs/Meds Orders: Active Orders 24 hr Category Date Time Status UA W/MICROSCOPIC [URIN] Stat Lab 05/11/17 12:40 Ordered Departure - Departure Time of Disposition: 13:38 Disposition: Home, Self-Care 01 Condition: Good Clinical Impression: Degenerative joint disease - Discharge Information Referrals: James Foster MD [Primary Care Provider] - Forms: ED Department Discharge Additional Instructions: The following information is given to patients seen in the emergency department who are being discharged to home. This information is to outline your options for follow-up care. We provide all patients seen in our emergency department with a follow-up referral. The need for follow-up, as well as the timing and circumstances, are variable depending upon the specifics of your emergency department visit. If you don't have a primary care physician on staff, we will provide you with a referral. We always advise you to contact your personal physician following an emergency department visit to inform them of the circumstance of the visit and for follow-up with them and/or the need for any referrals to a consulting specialist. The emergency department will also refer you to a specialist when appropriate. This referral assures that you have the opportunity for follow-up care with a specialist. All of these measure are taken in an effort to provide you with optimal care, which includes your follow-up. Under all circumstances we always encourage you to contact your private physician who remains a resource for coordinating your care. When calling for follow-up care, please make the office aware that this follow-up is from your recent emergency room visit. If for any reason you are refused follow-up, please contact the [facility] Emergency Department at and asked to speak to the emergency department charge nurse. Fidel as directed. Do not take Tylenol while taking this medication [facility] [address] [place] [id number] - My Orders Last 24 Hours: My Active Orders 05/11/17 12:40 UA W/MICROSCOPIC [URIN] Stat - Assessment/Plan Last 24 Hours: My Active Orders 05/11/17 12:40 UA W/MICROSCOPIC [URIN] Stat
--- NOTE | 2017-05-11 13:14 | CR ---
EXAMINATION: Pelvis and lumbar spine HISTORY: Pain COMPARISON: CT dated 09/19/2016. TECHNIQUE: AP pelvis and AP and lateral views of the lumbar spine. FINDINGS: The lumbar spinal alignment is normal. Vertebral body heights appear maintained. Marginal o steophytes are noted. Disc space narrowing is noted at L5-S1. No fracture or acute osseous abnormalit y. Hip joint spaces are preserved. Iliopectineal lines are intact. Bone mineralization is mildly oste openic. Vascular calcifications are noted. IMPRESSION: 1. Moderate degenerative changes within the lumbar spine without acute findings.
[2017-05-11 13:58] VITALS: BP 170/78
== END 2017-05-11 14:05 | disposition home or self-care (01) ==
LOC: MW.ED 11:33
DX: M47.816 Spondylosis without myelopathy or radiculopathy, lumbar region (principal); E78.00 Pure hypercholesterolemia, unspecified; I10 Essential (primary) hypertension; E03.9 Hypothyroidism, unspecified; Z88.0 Allergy status to penicillin; Z88.2 Allergy status to sulfonamides; Z88.6 Allergy status to analgesic agent; Z79.899 Other long term (current) drug therapy; Z79.82 Long term (current) use of aspirin
CPT/HCPCS: 72100; 72100-26; 72170; 72170-26; 99283

== ENCOUNTER 2017-08-09 18:11 | Inpatient (IN) | payer MEDICARE, OTHER ==
[2017-08-09] MEDS ORDERED: cefTRIAXone 1 GM in Premix Bag 1 BAG IV ONE (19:14)
[2017-08-09] MEDS ORDERED: Sodium Chloride 0.9% 500 ML IV ONE (19:23)
--- NOTE | 2017-08-09 20:25 | EDM.PDOC ---
ED HPI GENERAL MEDICAL PROBLEM - General Chief Complaint: Gastrointestinal Problem Stated Complaint: FLU LIKE SYMPTOMS, LEFT EYE PAIN Time Seen by Provider: 08/09/17 18:34 Source of Information: Reports: Patient, Family (Daughter) History Limitations: Reports: No Limitations - History of Present Illness INITIAL COMMENTS - FREE TEXT/NARRATIVE: Presents with her daughter the patient reports a 4 day history of a red left eye with swelling and redness around the eye and now down into the cheek on the left. She had a corneal transplant about 5 years ago. She did call and talk to Dr. Baker, her daycare provider a couple of days ago who told her to come to the eye clinic that she has been too sick to go to the clinic. She also reports a couple day history of diarrhea and vomiting many times but no fever. She has not eaten or drank anything in 2 days except two tbl of ice cream. Her daughter states that she has been here to the emergency room 4 times since December with the same symptoms and nothing has ever been found. At the end of last year she did have some trouble with urinary tract infection but in the last 6 months that has resolved. Her daughter states she has sciatica and uses that excuse to lay in bed all day most days and get waited on by her . Her is 89 years old and can not take care of her anymore. Buttocks Pain Score (Numeric/FACES): 10 - Related Data Allergies Allergy/AdvReac Type Severity Reaction Status Date / Time Penicillins Allergy Swelling Verified 08/09/17 18:34 procaine HCl [From Novocain] Allergy Difficulty Verified 08/09/17 18:34 Breathing Sulfa (Sulfonamide Allergy Cannot Verified 08/09/17 18:34 Antibiotics) Remember Home Meds: Home Meds Gabapentin [Neurontin] 600 mg PO BID 07/22/15 [History] amLODIPine Besylate [Amlodipine Besylate] 1 tab PO DAILY 07/22/15 [History] Carboxymethylcellulose Sodium [Refresh Celluvisc] 1 drop EYEBOTH QID 09/21/15 [ History] Levothyroxine [Synthroid] 100 mcg PO ACBREAKFAST 09/21/15 [History] Losartan [Cozaar] 100 mg PO DAILY 09/21/15 [History] atorvaSTATin [Lipitor] 40 mg PO BEDTIME 09/21/15 [History] prednisoLONE Acetate [Pred Forte 1% Ophth Susp] 1 drop EYELF DAILY PRN 09/21/15 [History] Polyvinyl Alcohol [LiquiTears 1.4% Ophth Soln] 1 drop EYEBOTH QID PRN #0 bottle 09/22/15 [Rx] Acyclovir 400 mg PO BID 03/08/17 [History] Ascorbic Acid [Vitamin C] 1,000 mg PO DAILY 03/08/17 [History] Aspirin [Halfprin] 81 mg PO DAILY 03/08/17 [History] Cholecalciferol (Vitamin D3) [Vitamin D3] 1,000 unit PO DAILY 03/08/17 [History] Denosumab [Xgeva] 60 mg PO DAILY 03/08/17 [History] Psyllium [Metamucil] 0.52 gm PO DAILY 03/08/17 [History] Past Medical History HEENT History: Reports: None Cardiovascular History: Reports: High Cholesterol, Hypertension Respiratory History: Reports: COPD Gastrointestinal History: Reports: Diverticulosis Genitourinary History: Reports: UTI, Recurrent 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 Musculoskeletal History: Reports: None Neurological History: Reports: Other (See Below) Other Neuro History: facial nerve pain Psychiatric History: Reports: None Endocrine/Metabolic History: Reports: Hypothyroidism Hematologic History: Reports: None Immunologic History: Reports: None Oncologic (Cancer) History: Reports: None Dermatologic History: Reports: None - Infectious Disease History Infectious Disease History: Reports: Chicken Pox, Measles, Mumps, Shingles - Past Surgical History Head Surgeries/Procedures: Reports: None HEENT Surgical History: Reports: Other (See Below) Other HEENT Surgeries/Procedures: 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 Cardiovascular Surgical History: Reports: None Respiratory Surgical History: Reports: None GI Surgical History: Reports: None Female Surgical History: Reports: None Endocrine Surgical History: Reports: None Musculoskeletal Surgical History: Reports: Other (See Below) Social & Family History - Family History Family Medical History: Noncontributory - Tobacco Use Smoking Status *Q: Never Smoker Second Hand Smoke Exposure: Yes - Caffeine Use Caffeine Use: Reports: Coffee - Recreational Drug Use Recreational Drug Use: No ED ROS GENERAL - Review of Systems Review Of Systems: ROS reveals no pertinent complaints other than HPI. ED EXAM GENERAL W FULL EYE - Physical Exam Exam: See Below Exam Limited By: No Limitations General Appearance: Alert, No Apparent Distress Eye Exam: Right Eye: PERRL, Left Eye: Abnormal Pupil (unable to visualize), Conjunctival Injection, Periorbital Changes (swelling, erythema), Bilateral Eye : EOMI Eyelids: Left: Edema, Erythema Conjunctiva & Sclera: Left: Conjunctival Edema, Injected Cornea Exam: Left: Cloudy Cornea Extraocular Movements: Bilateral: Intact Pupillary Size: Right: 3 mm Pupillary Reaction: Right: Brisk Anterior Chamber: Right: Normal Appearance Ears: Normal External Exam Nose: Normal Inspection Throat/Mouth: Normal Inspection Head: Atraumatic, Normocephalic Neck: Normal Inspection Respiratory/Chest: No Respiratory Distress, Lungs Clear, Normal Breath Sounds Cardiovascular: Normal Peripheral Pulses, Regular Rate, Rhythm, No Murmur GI/Abdominal: Normal Bowel Sounds, Soft, Non-Tender, No Distention Back Exam: Normal Inspection Extremities: Normal Inspection Neurological: Alert, Oriented Psychiatric: Normal Affect, Normal Mood Lymphatic: No Adenopathy Course - Vital Signs Last Recorded V/S: Last Vital Signs Temp 37.6 C 08/09/17 20:01 Pulse 89 08/09/17 20:01 Resp 18 08/09/17 20:01 BP 177/71 H 08/09/17 20:01 Pulse Ox 96 08/09/17 20:01 - Orders/Labs/Meds Orders: Active Orders 24 hr Category Date Time Status Chest 2V [CR] Stat Exams 08/09/17 18:46 Taken Orbit Sella PF IAC w Cont [CT] Stat Exams 08/09/17 18:48 Taken CULTURE BLOOD [BC] Stat Lab 08/09/17 18:25 Received CULTURE BLOOD [BC] Stat Lab 08/09/17 18:40 Received UA W/MICROSCOPIC [URIN] Stat Lab 08/09/17 18:46 Ordered Blood Culture x2 Reflex Set [OM.PC] Stat Oth 08/09/17 18:47 Ordered Labs: Laboratory Tests 08/09/17 08/09/17 08/09/17 Range/Units 18:25 18:25 18:25 WBC 10.69 (4.0-11.0) K/uL RBC 3.56 L (4.30-5.90) M/uL Hgb 11.7 L (12.0-16.0) g/dL Hct 35.4 L (36.0-46.0) % MCV 99.4 H (80.0-98.0) fL MCH 32.9 H (27.0-32.0) pg MCHC 33.1 (31.0-37.0) g/dL RDW Std Deviation 58.5 (28.0-62.0) fl RDW Coeff of Josselyn 16 H (11.0-15.0) % Plt Count 240 (150-400) K/uL MPV 9.80 (7.40-12.00) fL Neut % (Auto) 76.3 (48.0-80.0) % Lymph % (Auto) 13.2 L (16.0-40.0) % [place] % (Auto) 10.4 (0.0-15.0) % Eos % (Auto) 0.0 (0.0-7.0) % Baso % (Auto) 0.1 (0.0-1.5) % Neut # (Auto) 8.2 H (1.4-5.7) K/uL Lymph # (Auto) 1.4 (0.6-2.4) K/uL [place] # (Auto) 1.1 H (0.0-0.8) K/uL Eos # (Auto) 0.0 (0.0-0.7) K/uL Baso # (Auto) 0.0 (0.0-0.1) K/uL Nucleated RBC % 0.0 /100WBC Nucleated RBCs # 0 K/uL Lactate 1.5 (0.20-2.00) mmol/L Sodium 141 (136-145) mmol/L Potassium 4.1 (3.5-5.1) mmol/L Chloride 104 (98-107) mmol/L Carbon Dioxide 27.3 (21.0-32.0) mmol/L BUN 27 H (7.0-18.0) mg/dL Creatinine 1.2 H (0.6-1.0) mg/dL Est Cr Clr Drug Dosing 28.65 mL/min Estimated GFR (MDRD) 42.4 ml/min Glucose 128 H (74-106) mg/dL Calcium 9.8 (8.5-10.1) mg/dL Total Bilirubin 0.8 (0.2-1.0) mg/dL AST 22 (15-37) IU/L ALT 24 (14-63) IU/L Alkaline Phosphatase 63 (46-116) U/L Total Protein 7.0 (6.4-8.2) g/dL Albumin 3.4 (3.4-5.0) g/dL Globulin 3.6 H (2.0-3.5) g/dL Albumin/Globulin Ratio 0.9 L (1.3-2.8) Meds: Medications Discontinued Medications Generic Name Dose Route Start Last Admin Trade Name Gene PRN Reason Stop Dose Admin Ceftriaxone Sodium/Dextrose 1 50 mls @ 100 mls/hr 08/09/17 19:14 gm/ Premix IV 08/09/17 19:43 ONETIME ONE Vancomycin HCl 1 gm/ Sodium 250 mls @ 250 mls/hr 08/09/17 19:15 08/09/17 19: 24 Chloride IV 08/09/17 20:14 250 mls/hr ONETIME ONE Administration Sodium Chloride 500 mls @ 999 mls/hr 08/09/17 19:23 Normal Saline IV 08/09/17 19:53 STAT ONE - Re-Assessments/Exams Free Text/Narrative Re-Assessment/Exam: 08/09/17 20:[address] Baker, opthalmology. CT orbit report results read to Dr. Baker. Same will see the patient in the clinic in the am. Departure - Departure Time of Disposition: 21:10 Disposition: Admitted As Inpatient 65 Condition: Good Clinical Impression: Dehydration, Nausea and vomiting - Discharge Information Referrals: James Foster MD [Primary Care Provider] - Forms: ED Department Discharge - My Orders Last 24 Hours: My Active Orders 08/09/17 18:25 CULTURE BLOOD [BC] Stat 08/09/17 18:40 CULTURE BLOOD [BC] Stat 08/09/17 18:46 Chest 2V [CR] Stat UA W/MICROSCOPIC [URIN] Stat 08/09/17 18:47 Blood Culture x2 Reflex Set [OM.PC] Stat 08/09/17 18:48 Orbit Sella PF IAC w Cont [CT] Stat - Assessment/Plan Last 24 Hours: My Active Orders 08/09/17 18:25 CULTURE BLOOD [BC] Stat 08/09/17 18:40 CULTURE BLOOD [BC] Stat 08/09/17 18:46 Chest 2V [CR] Stat UA W/MICROSCOPIC [URIN] Stat 08/09/17 18:47 Blood Culture x2 Reflex Set [OM.PC] Stat 08/09/17 18:48 Orbit Sella PF IAC w Cont [CT] Stat
--- NOTE | 2017-08-09 22:40 | PCM.HP ---
H&P History of Present Illness - General Admit Problem/Dx: Admission Diagnosis/Problem Admission Diagnosis/Problem Dehydration - History of Present Illness Initial Comments - Free Text/Narative: 87 yo female who presents to the ED with complaint of red swollen left eye with some purulent discharge. She has a history of corneal transplant four years ago [address] Dr. Baker. She denies any fevers or headache. CT scan of orbits show pre orbital cellulitis and mild fat stranding immediately within the posteptal space that appears worrisome for mild or early post septal orbital cellultis. Dr. Baker was called regarding the CT scan results and recommend sending the patient to his clinic tomorrow morning for evaluation. Buttocks Pain Score (Numeric/FACES): 10 Left Eye Pain Score (Numeric/FACES): 3 - Related Data Allergies/Adverse Reactions: Allergies Allergy/AdvReac Type Severity Reaction Status Date / Time Penicillins Allergy Swelling Verified 08/09/17 18:34 procaine HCl [From Novocain] Allergy Difficulty Verified 08/09/17 18:34 Breathing Sulfa (Sulfonamide Allergy Cannot Verified 08/09/17 18:34 Antibiotics) Remember Home Medications: Home Meds Gabapentin [Neurontin] 600 mg PO BID 07/22/15 [History] amLODIPine Besylate [Amlodipine Besylate] 1 tab PO DAILY 07/22/15 [History] Carboxymethylcellulose Sodium [Refresh Celluvisc] 1 drop EYEBOTH QID 09/21/15 [ History] Levothyroxine [Synthroid] 100 mcg PO ACBREAKFAST 09/21/15 [History] Losartan [Cozaar] 100 mg PO DAILY 09/21/15 [History] atorvaSTATin [Lipitor] 40 mg PO BEDTIME 09/21/15 [History] prednisoLONE Acetate [Pred Forte 1% Ophth Susp] 1 drop EYELF DAILY PRN 09/21/15 [History] Polyvinyl Alcohol [LiquiTears 1.4% Ophth Soln] 1 drop EYEBOTH QID PRN #0 bottle 09/22/15 [Rx] Acyclovir 400 mg PO BID 03/08/17 [History] Ascorbic Acid [Vitamin C] 1,000 mg PO DAILY 03/08/17 [History] Aspirin [Halfprin] 81 mg PO DAILY 03/08/17 [History] Cholecalciferol (Vitamin D3) [Vitamin D3] 1,000 unit PO DAILY 03/08/17 [History] Psyllium [Metamucil] 0.52 gm PO DAILY 03/08/17 [History] Denosumab [Xgeva] 60 mg PO ASDIRECTED #0 08/10/17 [Rx] Past Medical History HEENT History: Reports: None Cardiovascular History: Reports: High Cholesterol, Hypertension Respiratory History: Reports: COPD Gastrointestinal History: Reports: Diverticulosis Genitourinary History: Reports: UTI, Recurrent 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 Musculoskeletal History: Reports: None Neurological History: Reports: Other (See Below) Other Neuro History: facial nerve pain Psychiatric History: Reports: None Endocrine/Metabolic History: Reports: Hypothyroidism Hematologic History: Reports: None Immunologic History: Reports: None Oncologic (Cancer) History: Reports: None Dermatologic History: Reports: None - Infectious Disease History Infectious Disease History: Reports: Chicken Pox, Measles, Mumps, Shingles - Past Surgical History Head Surgeries/Procedures: Reports: None HEENT Surgical History: Reports: Other (See Below) Other HEENT Surgeries/Procedures: 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 Cardiovascular Surgical History: Reports: None Respiratory Surgical History: Reports: None GI Surgical History: Reports: None Female Surgical History: Reports: None Endocrine Surgical History: Reports: None Musculoskeletal Surgical History: Reports: Other (See Below) Social & Family History - Family History Family Medical History: Noncontributory - Tobacco Use Smoking Status *Q: Never Smoker Second Hand Smoke Exposure: Yes - Caffeine Use Caffeine Use: Reports: Coffee - Recreational Drug Use Recreational Drug Use: No H&P Review of Systems - Review of Systems: Review Of Systems: ROS reveals no pertinent complaints other than HPI. Exam - Exam Exam: See Below - Vital Signs Vital Signs: Last Vital Signs Temp 37.7 C 08/09/17 21:15 Pulse 85 08/09/17 21:15 Resp 18 08/09/17 21:15 BP 181/74 H 08/09/17 21:15 Pulse Ox 97 08/09/17 21:15 Weight: 56 kg - Exam General: Alert, Oriented HEENT: Other (edema and erythema of the left eyelid) Lungs: Clear to Auscultation, Normal Respiratory Effort Cardiovascular: Regular Rate, Regular Rhythm GI/Abdominal Exam: Normal Bowel Sounds, Soft, Non-Tender Extremities: Non-Tender, No Pedal Edema Skin: Warm, Dry, Intact - Patient Data Lab Results Last 24 hrs: Laboratory Results - last 24 hr 08/09/17 08/09/17 08/09/17 Range/Units 18:25 18:25 18:25 WBC 10.69 (4.0-11.0) K/uL RBC 3.56 L (4.30-5.90) M/uL Hgb 11.7 L (12.0-16.0) g/dL Hct 35.4 L (36.0-46.0) % MCV 99.4 H (80.0-98.0) fL MCH 32.9 H (27.0-32.0) pg MCHC 33.1 (31.0-37.0) g/dL RDW Std Deviation 58.5 (28.0-62.0) fl RDW Coeff of Josselyn 16 H (11.0-15.0) % Plt Count 240 (150-400) K/uL MPV 9.80 (7.40-12.00) fL Neut % (Auto) 76.3 (48.0-80.0) % Lymph % (Auto) 13.2 L (16.0-40.0) % [place] % (Auto) 10.4 (0.0-15.0) % Eos % (Auto) 0.0 (0.0-7.0) % Baso % (Auto) 0.1 (0.0-1.5) % Neut # (Auto) 8.2 H (1.4-5.7) K/uL Lymph # (Auto) 1.4 (0.6-2.4) K/uL [place] # (Auto) 1.1 H (0.0-0.8) K/uL Eos # (Auto) 0.0 (0.0-0.7) K/uL Baso # (Auto) 0.0 (0.0-0.1) K/uL Nucleated RBC % 0.0 /100WBC Nucleated RBCs # 0 K/uL Lactate 1.5 (0.20-2.00) mmol/L Sodium 141 (136-145) mmol/L Potassium 4.1 (3.5-5.1) mmol/L Chloride 104 (98-107) mmol/L Carbon Dioxide 27.3 (21.0-32.0) mmol/L BUN 27 H (7.0-18.0) mg/dL Creatinine 1.2 H (0.6-1.0) mg/dL Est Cr Clr Drug Dosing 28.65 mL/min Estimated GFR (MDRD) 42.4 ml/min Glucose 128 H (74-106) mg/dL Calcium 9.8 (8.5-10.1) mg/dL Total Bilirubin 0.8 (0.2-1.0) mg/dL AST 22 (15-37) IU/L ALT 24 (14-63) IU/L Alkaline Phosphatase 63 (46-116) U/L Total Protein 7.0 (6.4-8.2) g/dL Albumin 3.4 (3.4-5.0) g/dL Globulin 3.6 H (2.0-3.5) g/dL Albumin/Globulin Ratio 0.9 L (1.3-2.8) Result Diagrams: 08/10/17 05:32 08/10/17 05:32 Problem List Initiated/Reviewed/Updated: Yes Orders Last 24hrs: Active Orders 24 hr Category Date Time Status Patient Status [ADT] Stat ADT 08/09/17 20:57 Active Oxygen Therapy [RC] PRN Care 08/09/17 22:33 Ordered Up ad Lorrie [RC] ASDIRECTED Care 08/09/17 22:33 Ordered VTE/DVT Education [RC] PER UNIT ROUTINE Care 08/09/17 22:33 Ordered Vital Signs [RC] Q4H Care 08/09/17 22:33 Ordered Regular Diet [DIET] Diet 08/09/17 Breakfast Ordered Chest 2V [CR] Stat Exams 08/09/17 18:46 Taken Orbit Sella PF IAC w Cont [CT] Stat Exams 08/09/17 18:48 Taken BASIC METABOLIC PANEL,BMP [CHEM] AM Lab 08/10/17 05:11 Ordered CBC WITH AUTO DIFF [HEME] AM Lab 08/10/17 05:11 Ordered CULTURE BLOOD [BC] Stat Lab 08/09/17 18:25 Received CULTURE BLOOD [BC] Stat Lab 08/09/17 18:40 Received UA W/MICROSCOPIC [URIN] Stat Lab 08/09/17 18:46 Ordered Vancomycin Pharmacy to Dose [Pharmacy to Dose - Med 08/09/17 22:32 Once Vancomycin] 1 dose .XX ONETIME ONE cefTRIAXone [Rocephin in Dextrose,Iso-Osm 1 GM/50 ML] 1 Med 08/10/17 20:00 Ordered gm Premix Bag 1 bag IV Q24H Blood Culture x2 Reflex Set [OM.PC] Stat Oth 08/09/17 18:47 Ordered Sequential Compression Device [OM.PC] Per Unit Routine Oth 08/09/17 22:34 Ordered Medication Orders Ceftriaxone Sodium/Dextrose 1 (gm/ Premix) 50 mls @ 100 mls/hr IV Q24H [facility] Vancomycin HCl (Pharmacy To Dose - Vancomycin) 1 dose .XX ONETIME ONE Stop: 08/09/17 22:33 Assessment/Plan Comment:: 87 yo female with pre orbital cellulitis and possible orbital cellulitis. Patient received IV vancomycin and Rocephin. Plan is to discharge patient and will be seen in Dr. Baker's clinic today. Patient may need to be readmitted for continued antibiotic therapy or Dr. Baker may arrange for outpatient infusions.
[2017-08-10] MEDS ORDERED: Levothyroxine 100 MCG Tab PO SCH (07:30)
[2017-08-10 07:59] VITALS: BP 139/68
[2017-08-10] MEDS ORDERED: amLODIPine 2.5 MG Tab PO SCH (09:00)
[2017-08-10] MEDS ORDERED: Aspirin 81 MG Tab.EC PO SCH (09:00)
[2017-08-10] MEDS ORDERED: Acyclovir 200 MG Cap PO SCH (09:00)
[2017-08-10] MEDS ORDERED: Gabapentin 300 MG Cap PO SCH (09:00)
[2017-08-10] MEDS ORDERED: Losartan 50 MG Tab PO SCH (09:00)
[2017-08-10] MEDS ORDERED: Cholecalciferol (Vitamin D3) 1,000 Unit Tab PO SCH (09:00)
[2017-08-10] MEDS ORDERED: Psyllium Husk Powder Sugar Free 5.85 GM Packet PO SCH (09:00)
[2017-08-10] MEDS ORDERED: Carboxymethylcellulose Sodium 0.5% Ophth Soln 0.4 ML UD Box of 30 EYEBOTH SCH (12:00)
--- NOTE | 2017-08-10 13:12 | CT ---
EXAM DATE: 08/09/17 PATIENT'S AGE: 87 Patient: ANNA SCHULTZ Facility: [place], [place] Site . Site : 1930 Study: CT Orbits W/ and W/O Cont [id number]/5/2018 7:53:37 PM Ordering Physician: Doctor Savage Final Report: INDICATION: Left orbital swelling. TECHNIQUE: CT of the orbits was acquired without and with IV contrast. Coronal reformats are submitted. No comparisons. FINDINGS: The orbits bilaterally appear intact. There is mild fat stranding and soft tissue thickening overlying the left orbit. There does appear to be an unusual 14 millimeter crescentic low density lesion abutting the inferior and medial rectus muscles. This may represent a small surgical device. There does appear to be mild fat stranding in the left postseptal space. Some of this may represent some mild or early inflammatory change extending into the postseptal space or alternatively represent postoperative changes but this is felt to be somewhat less likely since the history of surgery was over 5 years ago. No suspicious fluid collections. The right orbit and intraorbital contents appear within normal limits. Mild mucosal thickening within the left maxillary sinus. IMPRESSION: 1. Findings compatible with left pre orbital cellulitis. 2. Unusual crescentic low density lesion abutting the left inferior and medial rectus muscles that may represent an implanted device. 3. Mild fat stranding and immediately within the postseptal space but not extending into the orbital apex that appears worrisome for mild or early post septal orbital cellulitis. 4. Findings were discussed with the ordering doctor at 2020 hours. Dictated by Raudel Mcleod MD @ 08/09/2017 8:22:21 PM Please note that all CT scans at this facility use dose modulation, iterative reconstruction, and/or weight-based dosing when appropriate to reduce radiation dose to as low as reasonably achievable. Dictated by: Raudel Mcleod MD @ 08/09/2017 20:22:28 (Electronic Signature) Report Signed by Proxy. [facility]
--- NOTE | 2017-08-10 13:13 | CR ---
EXAM DATE: 08/09/17 PATIENT'S AGE: 87 Patient: ANNA SCHULTZ Facility: [place], [place] : 1930 Study: XRay Chest [id number]/5/2018 8:07:41 PM Ordering Physician: Doctor Savage Final Report: HISTORY: Fever, left eye pain. FINDINGS: PA and lateral chest radiographs are compared with 20 September 2015. The cardiac silhouette is normal. Calcification is in the aortic knob. Pulmonary vasculature is free of cephalization. Peridiscal spurring seen within the thoracic spine. No consolidation or pleural effusion is seen. Old right humeral neck fracture. IMPRESSION: No acute cardiopulmonary disease. Preliminary report was entered into [employer] by Dr. Gannon 09 August 2017 at 2020 hours prior Dictated by Zoila Freed MD @ Aug 10 2017 8:56AM (Electronic Signature) Report Signed by Proxy. [facility]
[2017-08-10] MEDS ORDERED: cefTRIAXone 1 GM in Premix Bag 1 BAG IV SCH (20:00)
[2017-08-10] MEDS ORDERED: atorvaSTATin 40 MG Tab PO SCH (21:00)
== END 2017-08-10 10:22 | disposition home or self-care (01) | DRG 122 ==
LOC: MW.ED 18:11 → MW.MS 20:57 → MW.ED 21:39
PROVIDERS: ADMIT Internal Medicine; ATTEND Internal Medicine
DX: H05.012 Cellulitis of left orbit (principal); R11.2 Nausea with vomiting, unspecified; E86.0 Dehydration; R22.0 Localized swelling, mass and lump, head; E78.00 Pure hypercholesterolemia, unspecified; I10 Essential (primary) hypertension; J44.9 Chronic obstructive pulmonary disease, unspecified; E03.9 Hypothyroidism, unspecified; Z88.0 Allergy status to penicillin; Z88.2 Allergy status to sulfonamides; Z88.8 Allergy status to other drugs, medicaments and biological substances; Z79.899 Other long term (current) drug therapy
CPT/HCPCS: 36415; 70481; 71046; 80053; 83605; 85025; 87040 ×2; 96361; 96365; 99285; J3370; J7040; J7050; 80048; 81001; 96375; 99282; A9270-GY; J0696

== ENCOUNTER 2017-08-30 10:35 | Observation (INO) | payer MEDICARE, OTHER ==
[2017-08-30] MEDS ORDERED: Sodium Chloride 0.9% 1,000 ML IV ONE (10:37)
--- NOTE | 2017-08-30 10:43 | EDM.PDOC ---
ED HPI GENERAL MEDICAL PROBLEM - General Stated Complaint: AMB Time Seen by Provider: 08/30/17 10:36 Source of Information: Reports: Patient History Limitations: Reports: No Limitations - History of Present Illness INITIAL COMMENTS - FREE TEXT/NARRATIVE: HISTORY AND PHYSICAL: History of present illness: Patient is an 87-year-old female who presents to the emergency room today with complaints of syncope and weakness. EMS was called to her home after she had a syncopal event. Upon EMS arrival she was resting in bed and did request that EMS not to transport her to the emergency room. They noted that she was incontinent of urine EMS personnel ambulated with the patient to the bathroom and shortly after she did complain of weakness and sat herself on the ground. At this time she did state she would come to the ER for further evaluation and management. Currently the patient denies any systemic complaints but reports that "when I stand up I feel very weak". She does have an abrasion to bilateral lower extremities and left wrist. There is some dried blood to her right eyebrow although I do not see an abrasion/laceration. It and oriented. Denies any fever, chills, chest pain, shortness of breath or cough. Denies any abdominal pain, nausea, vomiting, diarrhea or constipation. No neurological deficits are noted, denies blurred or changed vision. Past medical history of hypertension, elevated cholesterol, diverticulitis, hypothyroidism, COPD, UTIs, corneal transplant. Review of systems: As per history of present illness and below otherwise all systems reviewed and negative. Past medical history: As per history of present illness and as reviewed below otherwise noncontributory. Surgical history: As per history of present illness and as reviewed below otherwise noncontributory. Social history: No reported history of drug or alcohol abuse. Family history: As per history of present illness and as reviewed below otherwise noncontributory. Physical exam: General: Well-developed and well-nourished 87-year-old female. Alert and oriented. Nontoxic appearing and in no acute distress. HEENT: Atraumatic, normocephalic, pupils equal and reactive bilaterally, negative for conjunctival pallor or scleral icterus, mucous membranes tacky, throat clear, neck supple, nontender, trachea midline. No drooling or trismus noted. No meningeal signs Lungs: Clear to auscultation, breath sounds equal bilaterally, chest nontender. Heart: S1S2, regular rate and rhythm without overt murmur Abdomen: Soft, nondistended, nontender. Negative for masses or hepatosplenomegaly. Negative for costovertebral tenderness. Pelvis: Stable nontender. Genitourinary: Deferred. Rectal: Deferred. C-spine/Back: No pinpoint vertebral tenderness upon palpation. No crepitus, step -offs or obvious deformities. Skin: Abrasion/skin tear to left wrist (ulnar side), bilateral banks. Otherwise skin is intact, warm, dry. No lesions or rashes noted. Extremities: Atraumatic, negative for cords or calf pain. Neurovascular unremarkable. Neuro: Awake, alert, oriented. Cranial nerves II through XII unremarkable. Cerebellum unremarkable. Motor and sensory unremarkable throughout. Exam nonfocal. Notes: GCS: 15, NIH: 0 Patient states that the abrasion she obtained were due to trying to get up off of the carpeted floor. This abrasions were cleaned and dressed Lab work shows a potassium of 2.6 with elevated BUNs/creatinine. She does appear dehydrated upon my evaluation. Head CT shows no acute intracranial findings. Chest x-ray within normal limits. Patient is agreeable to staying for observation. Dr. Cope, the hospitalist, as consult did on this case. She is agreeable to keeping this patient on [facility] with telemetry. Diagnostics: CBC, CMP, Troponin, EKG, Chest Xray, UA Therapeutics: Normal Saline, Impression: Syncope Hypokalemia Plan: [] Definitive disposition and diagnosis as appropriate pending reevaluation and review of above. Onset: Today Duration: Hour(s): Location: Reports: Generalized - Related Data Allergies Allergy/AdvReac Type Severity Reaction Status Date / Time Penicillins Allergy Swelling Verified 08/30/17 10:36 procaine HCl [From Novocain] Allergy Difficulty Verified 08/30/17 10:36 Breathing Sulfa (Sulfonamide Allergy Cannot Verified 08/30/17 10:36 Antibiotics) Remember Past Medical History HEENT History: Reports: None Cardiovascular History: Reports: High Cholesterol, Hypertension Respiratory History: Reports: COPD Gastrointestinal History: Reports: Diverticulosis Genitourinary History: Reports: UTI, Recurrent LOCOMOTIVE INSPECTOR History: Reports: None Musculoskeletal History: Reports: None Neurological History: Reports: Other (See Below) Other Neuro History: facial nerve pain Psychiatric History: Reports: None Endocrine/Metabolic History: Reports: Hypothyroidism Hematologic History: Reports: None Immunologic History: Reports: None Oncologic (Cancer) History: Reports: None Dermatologic History: Reports: None - Infectious Disease History Infectious Disease History: Reports: Chicken Pox, Measles, Mumps, Shingles - Past Surgical History Head Surgeries/Procedures: Reports: None HEENT Surgical History: Reports: Other (See Below) Other HEENT Surgeries/Procedures: 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 Cardiovascular Surgical History: Reports: None Respiratory Surgical History: Reports: None GI Surgical History: Reports: None Female Surgical History: Reports: None Endocrine Surgical History: Reports: None Musculoskeletal Surgical History: Reports: Other (See Below) Social & Family History - Family History Family Medical History: Noncontributory - Caffeine Use Caffeine Use: Reports: Coffee ED ROS GENERAL - Review of Systems Review Of Systems: ROS reveals no pertinent complaints other than HPI. - Physical Exam Exam: See Below (See dictation) Course - Vital Signs Last Recorded V/S: Last Vital Signs Temp 97.7 F 08/30/17 10:41 Pulse 76 08/30/17 10:41 Resp 18 08/30/17 10:41 BP 108/59 L 08/30/17 10:41 Pulse Ox 96 08/30/17 10:41 Orthostatic Blood Pressure [ 129/56 Standing] Orthostatic Blood Pressure [ 125/57 Sitting] Orthostatic Blood Pressure [ 126/58 Supine] - Orders/Labs/Meds Orders: Active Orders 24 hr Category Date Time Status Admission Status [Patient Status] [ADT] Stat ADT 08/30/17 11:51 Active EKG Documentation Completion [RC] STAT Care 08/30/17 10:37 Active Orthostatic Vital Signs [RC] ASDIRECTED Care 08/30/17 10:38 Active UA W/MICROSCOPIC [URIN] Stat Lab 08/30/17 10:38 Ordered Potassium Chloride [Klor-Con M20] Med 08/30/17 11:58 Once 40 meq PO ONETIME ONE Sodium Chloride 0.9% [Normal Saline] 1,000 ml Med 08/30/17 10:37 Active IV STAT Medication Orders Sodium Chloride (Normal Saline) 1,000 mls @ 500 mls/hr IV STAT ONE Stop: 08/30/17 12:36 Last Admin: 08/30/17 10:57 Dose: 500 mls/hr Labs: Laboratory Tests 08/30/17 08/30/17 Range/Units 10:46 10:46 WBC 9.56 (4.0-11.0) K/uL RBC 3.34 L (4.30-5.90) M/uL Hgb 11.1 L (12.0-16.0) g/dL Hct 32.8 L (36.0-46.0) % MCV 98.2 H (80.0-98.0) fL MCH 33.2 H (27.0-32.0) pg MCHC 33.8 (31.0-37.0) g/dL RDW Std Deviation 50.6 (28.0-62.0) fl RDW Coeff of Josselyn 14 (11.0-15.0) % Plt Count 271 (150-400) K/uL MPV 10.90 (7.40-12.00) fL Neut % (Auto) 71.0 (48.0-80.0) % Lymph % (Auto) 20.3 (16.0-40.0) % [place] % (Auto) 8.3 (0.0-15.0) % Eos % (Auto) 0.1 (0.0-7.0) % Baso % (Auto) 0.3 (0.0-1.5) % Neut # (Auto) 6.8 H (1.4-5.7) K/uL Lymph # (Auto) 1.9 (0.6-2.4) K/uL [place] # (Auto) 0.8 (0.0-0.8) K/uL Eos # (Auto) 0.0 (0.0-0.7) K/uL Baso # (Auto) 0.0 (0.0-0.1) K/uL Nucleated RBC % 0.0 /100WBC Nucleated RBCs # 0 K/uL Sodium 141 (136-145) mmol/L Potassium 2.6 L (3.5-5.1) mmol/L Chloride 102 (98-107) mmol/L Carbon Dioxide 25.1 (21.0-32.0) mmol/L BUN 35 H (7.0-18.0) mg/dL Creatinine 2.5 H (0.6-1.0) mg/dL Est Cr Clr Drug Dosing TNP Estimated GFR (MDRD) 18.2 ml/min Glucose 161 H (74-106) mg/dL Calcium 9.0 (8.5-10.1) mg/dL Total Bilirubin 0.5 (0.2-1.0) mg/dL AST 22 (15-37) IU/L ALT 19 (14-63) IU/L Alkaline Phosphatase 47 (46-116) U/L Troponin I < 0.050 (0.000-0.056) ng/mL Total Protein 5.9 L (6.4-8.2) g/dL Albumin 3.2 L (3.4-5.0) g/dL Globulin 2.7 (2.0-3.5) g/dL Albumin/Globulin Ratio 1.2 L (1.3-2.8) Meds: Medications Generic Name Dose Route Start Last Admin Trade Name Freq PRN Reason Stop Dose Admin Sodium Chloride 1,000 mls @ 500 mls/hr 08/30/17 10:37 08/30/17 10:57 Normal Saline IV 08/30/17 12:36 500 mls/hr STAT ONE Administration Departure - Departure Time of Disposition: 11:59 Disposition: Refer to Observation Clinical Impression: Hypokalemia Syncope Qualifiers: Syncope type: unspecified Qualified Code(s): R55 - Syncope and collapse - Discharge Information Referrals: PCP,None [Primary Care Provider] - - My Orders Last 24 Hours: My Active Orders 08/30/17 10:37 EKG Documentation Completion [RC] STAT Sodium Chloride 0.9% [Normal Saline] 1,000 ml IV STAT 08/30/17 10:38 Orthostatic Vital Signs [RC] ASDIRECTED UA W/MICROSCOPIC [URIN] Stat 08/30/17 11:51 Admission Status [Patient Status] [ADT] Stat 08/30/17 11:58 Potassium Chloride [Klor-Con M20] 40 meq PO ONETIME ONE - Assessment/Plan Last 24 Hours: My Active Orders 08/30/17 10:37 EKG Documentation Completion [RC] STAT Sodium Chloride 0.9% [Normal Saline] 1,000 ml IV STAT 08/30/17 10:38 Orthostatic Vital Signs [RC] ASDIRECTED UA W/MICROSCOPIC [URIN] Stat 08/30/17 11:51 Admission Status [Patient Status] [ADT] Stat 08/30/17 11:58 Potassium Chloride [Klor-Con M20] 40 meq PO ONETIME ONE
[2017-08-30 11:28] LABS: CHLORIDE,CL 102 mmol/L (98-107); SODIUM,NA 141 mmol/L (136-145)
--- NOTE | 2017-08-30 11:41 | CR ---
EXAMINATION: Portable chest radiograph. HISTORY: Syncope. FINDINGS: The trachea is midline. The cardiomediastinal silhouette is within normal limits. No pulmonary infilt rates, effusions or pneumothorax. Mild hyperinflation and chronic interstitial prominence. Aortic andre cifications. Osseous structures appear osteopenic. IMPRESSION: No acute cardiopulmonary process.
--- NOTE | 2017-08-30 11:42 | CT ---
EXAMINATION: Non contrast CT head. Coronal and sagittal reformats. HISTORY: Syncope FINDINGS: No evidence of intra or extra axial hemorrhage, mass, midline shift, hydrocephalus or edema. Moderat e generalized atrophy and periventricular and subcortical white matter hypodensities noted. No hypoattenuation changes in the major vascular territories to suggest acute infarct. No abnormal intracranial calcifications are detected. No evidence of substantial vascular calcificat ions. Paranasal sinuses and mastoid air cells are well aerated without substantial findings. Orbits and gl obes are symmetric. Pituitary fossa appears unremarkable. Degenerative changes noted within the temporomandibular joints. Calvarium is intact. No evidence of skull fracture. IMPRESSION: 1. No acute intracranial findings. 2. Moderate generalized atrophy and small vessel ischemic changes.
--- NOTE | 2017-08-30 11:48 | CT ---
EXAMINATION: CT cervical spine HISTORY: Pain COMPARISON: None TECHNIQUE: Axial CT images obtained through the cervical spine without contrast. Coronal and sagittal reconstructions obtained. FINDINGS: The cervical spinal alignment is normal. The vertebral body heights and disc spaces appear well-maintained. Bone mineralization appears osteopenic. No fracture or acute osseous abnormality. Mi ld marginal osteophytes noted. Small osteophyte disc complex noted at C6-C7 without significant spina l canal stenosis. Mild carotid artery calcifications. The lung apices are clear IMPRESSION: 1. No acute finding noted within the cervical spine.
[2017-08-30] MEDS ORDERED: Potassium Chloride 20 MEQ Tab.ER PO ONE ×2 (11:58→13:32)
[2017-08-30] MEDS ORDERED: Bacitracin Oint 1 GM U/D Packet TOP ONE (12:07)
[2017-08-30] MEDS ORDERED: Temazepam 15 MG Cap PO PRN (13:12)
[2017-08-30] MEDS ORDERED: Sodium Chloride 0.9% 2.5 ML Syringe FLUSH PRN (13:12)
[2017-08-30] MEDS ORDERED: Albuterol/Ipratropium 3.0-0.5 MG/3 ML Neb Soln NEB PRN (13:12)
[2017-08-30] MEDS ORDERED: Morphine 2 MG/ML Syringe IVPUSH PRN (13:12)
[2017-08-30] MEDS ORDERED: Ondansetron 4 MG/2 ML SDV IVPUSH PRN (13:12)
[2017-08-30] MEDS ORDERED: Sodium Chloride 0.9% 10 ML Syringe FLUSH PRN (13:12)
[2017-08-30] MEDS: Lactated Ringers 1,000 ML IV SCH (14:02)
--- NOTE | 2017-08-30 16:36 | US ---
EXAMINATION: Carotid US with nicholas scale and duplex imaging. HISTORY: Carotid stenosis FINDINGS: Ultrasound examination of bilateral cervical carotid arteries was performed using nicholas scale and dupl ex imaging. Mild scattered atheromatous changes noted within the carotid arteries. Antegrade flow n oted within the vertebrals. These are the peak velocities in cm per second (systole), right and left respectively, by a comma: CCA (common carotid artery) - 63, 51 ICA (internal carotid artery) - 63, 60 ECA (External carotid artery) - 58, 69 ICA/CCA systolic ratio Right - 1.1 Left - 1.2 IMPRESSION: Mild scattered atheromatous changes noted within the carotid arteries without significant delay eleva rossi velocities.
[2017-08-30 17:15] LABS: CHLORIDE,CL 102 mmol/L (98-107); SODIUM,NA 140 mmol/L (136-145)
[2017-08-30] MEDS ORDERED: Codeine/guaiFENesin 100-10 MG/5 ML Syrup 5 ML Cup PO PRN (17:20)
[2017-08-30] MEDS ORDERED: ESTROGENS CONJUGATED VAG SCH (17:30)
[2017-08-30] MEDS ORDERED: prednisoLONE Acetate 1% Ophth Susp 5 ML Bottle EYELF SCH (17:30)
[2017-08-30] MEDS: PREDNISOLONE 1% EYELF SCH ×2 (18:29→20:45)
--- NOTE | 2017-08-30 19:59 | PCM.SN ---
- Free Text/Narrative Note: Mario dictated, #[id number]
[2017-08-30] MEDS ORDERED: diphenhydrAMINE 50 MG/ML SDV IVPUSH PRN (20:41)
[2017-08-30] MEDS: Potassium Chloride 20 MEQ Tab.ER PO SCH (20:49)
[2017-08-30] MEDS ORDERED: LIDOCAINE/PRILOCAINE CREAM TOP SCH (21:00)
[2017-08-30] MEDS: prednisoLONE Acetate 1% Ophth Susp 5 ML Bottle EYELF SCH (21:02)
[2017-08-31] MEDS: Lactated Ringers 1,000 ML IV SCH ×2 (00:25→07:54)
[2017-08-31] MEDS: prednisoLONE Acetate 1% Ophth Susp 5 ML Bottle EYELF SCH ×4 (00:30→18:15)
--- NOTE | 2017-08-31 08:24 | HP ---
DATE OF : 1930 PRIMARY CARE PHYSICIAN: None PCP CHIEF COMPLAINT: Loss of consciousness and generalized weakness. HISTORY OF PRESENT ILLNESS: The patient is an 87-year-old female presented to the hospital because of generalized weakness. The patient fell down on the floor when she tried to put her clothes to wash, and later on, when she walked across the room with her walker, she fell against the wall and lost consciousness. She was caught by a friend. The patient denies previous syncope. She is currently on treatment with eyedrops, and she was told by her industrial conveyor belt repairer physician that this can lower her potassium levels . She denies kidney problems , last creatinine done in August 10 was 1.She received iv antibiotic infusion last week, ( tobramycin?)- patient doesnt know the name of it , it was given for eye infection. She has skin thinning and some purpura on her legs, arms, and some lacerations, skin breakage on the legs due to skin thinning. As per , she must have passed out for and she was on the floor when she fell, and her was unable to help her, so he called a friend, and later on, they called EMS. The patient was complaining of being very weak, and she was brought her to the hospital. PAST MEDICAL HISTORY: Hypothyroidism , hyperlipidemia. Hypertension. She has decreased vision in the left eye. She is status post corneal transplant left eye about four years ago. She has history of herpes zoster of cornea. Osteoporosis. Multiple bone fractures. Fracture of the right ankle. Fracture of the right shoulder in 2017. PAST SURGICAL HISTORY: The patient had a corneal transplant 4 years ago, and the year before, she had cataract surgery in both eyes .had left eye shingles. She had surgery of the right broken ankle. In 2017, she broke her right shoulder, and she had surgery. She had hysterectomy in 1971, and her ovaries were kept. She had a history of surgery of the belly button. Nasal surgery for deviated septum. Toe surgery and pinning of the toe. Right foot surgery of toe. Bunion surgery on the right side. SOCIAL HISTORY: The patient does not smoke. Alcohol is occasional. Does not use drugs. FAMILY HISTORY: Her father was 70 years old, of emphysema; and brother had emphysema; mother had osteoporosis, and she at age 85. PHYSICAL EXAMINATION: VITAL SIGNS: At admission, the patient had a temperature of 97.7, pulse 76, blood pressure 108/59, respiratory rate 18, oxygen saturation 96%. HEENT: Head is atraumatic, normocephalic. She has ptosis of the upper eyelid on the left eye and also opacification of the cornea in the left eye. Right eye pupils equally reactive to light. NECK: Supple. No thyromegaly. No lymphadenopathy. HEART: S1 and S2. Regular rate and rhythm. No murmurs. LUNGS: Clear to auscultation bilaterally. ABDOMEN: Soft, nontender, positive bowel sounds. EXTREMITIES: No edema. NEUROLOGIC: There are no gross focal neurological deficits. The patient is alert and oriented x3. SKIN: She has purpura and thinning of the skin. LABORATORY DATA: At admission, WBC 9.56, hemoglobin 11.1, hematocrit 32.8, and platelet count 271,000. Chemistry: Sodium 141, potassium 2.6, chloride 102, carbon dioxide 25.1, BUN 35, creatinine 2.5, glucose 161, calcium is 9, iron 92, TIBC is low, 197. Iron saturation is 26.40, ferritin 385. Total bilirubin 0.5. AST 22, ALT 19, alkaline phosphatase 47. Troponin less than 0.05. Total protein 5.9, albumin 3.2, and vitamin B12 is 412. Urinalysis; urine color yellow, urine appearance is clear, pH 6, protein negative, glucose negative, ketones negative, nitrites negative, bilirubin negative, urobilinogen 0.2, leukocyte esterase is negative, RBCs 0-1, WBCs 0-3. The EKG shows sinus rate at 71 with ventricular premature complexes and QTc of 429, QT 394, GA 153, QRS 382. IMAGING: The patient had cervical spine CT with impression of no acute finding noted within the cervical spine. She had a head CT, which showed no acute intracranial finding, moderate generalized atrophy, and small ischemic changes. She had carotid ultrasound, which showed mild scattered atheromatous changes noted within the carotid arteries without significant delay elevated velocities. ASSESSMENT: 1. Syncope. 2. Hypokalemia. 3. Generalized weakness. 4. Acute kidney failure. 5. Hypertension. 6. Hypothyroidism. 7. Status post corneal transplant. 9.S/P INFUSION WITH ANTIBIOTICS LAST WEEK FOR TREATMENT OF A SEVERE EYE INFECTION 9. Osteoporosis. 10.Neuropathy. 11.Gait disturbances. 12.DVT prophylaxis. PLAN: We will admit the patient to telemetry. We will supplement potassium with potassium 40 mEq p.o. two times a day, and we will give patient IV fluids, Ringer's lactate. We will monitor BUN and creatinine and I and O. we will order renal ultrasound for the acute kidney failure. For syncope, we will order echocardiogram. Orthostatic vital signs were negative, and we will monitor the patient in telemetry for arrhythmia. The patient's syncope could be likely due to low potassium, which could have triggered some arrhythmia or just generalized weakness. For osteoporosis, the patient will be continued on Prolia every six months, and she will be continued on calcium and vitamin D. For hypothyroidism we will continue the patient with levothyroxine 100 mg p.o. daily. For acute kidney failure, we will hold the Losartan, and we will give patient IV fluids. Monitor BUN, creatinine, and electrolytes. Follow up kidney ultrasound and monitor I and O. We will order urine electrolytes. For hyperlipidemia, we will continue patient with atorvastatin 40 mg p.o. daily. For hypertension, we will follow up blood pressure. We will hold losartan, we will continue patient with amlodipine 2.5 mg p.o. daily, and we will increase amlodipine if the blood pressure is elevated or uncontrolled. For head trauma, we will do neuro checks q.2 hours for the first 8 hours and then q.4 hours afterwards, to complete 24 hours since trauma event. For eye problem and chronic steroid use, we will contact the patient's industrial conveyor belt repairer, Dr. Baker, we will discuss her treatment regimen, and we will inform doctor about her hypokalemia and possible side effects of their medication. For DVT prophylaxis, we will put patient on heparin 5000 units subcutaneous b.i.d. ANTOPET / MODL /[id number] YUNIER
[2017-08-31] MEDS: Potassium Chloride 20 MEQ Tab.ER PO SCH (08:43)
[2017-08-31] MEDS ORDERED: predniSONE 20 MG Tab PO SCH (09:00)
--- NOTE | 2017-08-31 10:47 | US ---
EXAMINATION: Renal ultrasound HISTORY: Elevated creatinine COMPARISON: CT dated 09/20/2015 TECHNIQUE: Grayscale and color Doppler imaging obtained FINDINGS: The right kidney measures at least 8.8 cm and the left kidney measures at least 8.5 cm pole -to-pole without evidence of hydronephrosis. Renal cortical echotexture is normal to mildly increased with renal cortical thinning bilaterally. No renal masses. Normal color Doppler flow bilaterally. Ur inary bladder is normal with bilateral urine jets. IMPRESSION: 1. Renal atrophy and cortical thinning otherwise unremarkable renal ultrasound.
[2017-08-31] MEDS ORDERED: Sodium Polystyrene Sulfonate 15 GM/60 ML Susp 60 ML Bot PO ONE (11:40)
[2017-08-31] MEDS ORDERED: Fluconazole 150 MG Tab PO ONE (12:13)
[2017-08-31] MEDS: Cyanocobalamin (Vitamin B12) 1,000 MCG/ML SDV SUBCUT SCH (12:32)
--- NOTE | 2017-08-31 14:07 | PCM.PN ---
<Navdeep Pryor - Last Filed: 08/31/17 14:01> - General Info Date of Service: 08/31/17 Subjective Update: Patient is doing well this morning and was eager to go home. She has no complaints. She denies any dizziness, chest pain. - Review of Systems General: Reports: Other (see hpi) - Patient Data Vitals - Most Recent: Last Vital Signs Temp 37.4 C 08/31/17 12:00 Pulse 83 08/31/17 12:00 Resp 18 08/31/17 12:00 BP 144/75 H 08/31/17 12:00 Pulse Ox 92 L 08/31/17 12:00 Orthostatic Blood Pressure [ 129/56 Standing] Orthostatic Blood Pressure [ 125/57 Sitting] Orthostatic Blood Pressure [ 126/58 Supine] Weight - Most Recent: 128 lb 15.527 oz I&O - Last 24 Hours: Intake & Output 08/30/17 08/31/17 08/31/17 22:59 06:59 14:59 Intake Total 2175 Output Total 210 770 Balance -210 1405 Lab Results Last 24 Hours: Laboratory Results - last 24 hr 08/30/17 08/30/17 08/30/17 Range/Units 14:23 14:23 16:38 WBC (4.0-11.0) K/uL RBC (4.30-5.90) M/uL Hgb (12.0-16.0) g/dL Hct (36.0-46.0) % MCV (80.0-98.0) fL MCH (27.0-32.0) pg MCHC (31.0-37.0) g/dL RDW Std Deviation (28.0-62.0) fl RDW Coeff of Josselyn (11.0-15.0) % Plt Count (150-400) K/uL MPV (7.40-12.00) fL Nucleated RBC % /100WBC Nucleated RBCs # K/uL Sodium 140 (136-145) mmol/L Potassium 3.4 L (3.5-5.1) mmol/L Chloride 102 (98-107) mmol/L Carbon Dioxide 28.1 (21.0-32.0) mmol/L BUN 27 H (7.0-18.0) mg/dL Creatinine 2.0 H (0.6-1.0) mg/dL Est Cr Clr Drug Dosing 14.67 mL/min Estimated GFR (MDRD) 23.5 ml/min Glucose 108 H (74-106) mg/dL Calcium 9.2 (8.5-10.1) mg/dL Iron 52 (50-175) ug/dL TIBC 197 L (250-450) ug/dL % Saturation 26.40 (20-55) % Ferritin 385 H (8-252) ng/mL Total Bilirubin (0.2-1.0) mg/dL AST (15-37) IU/L ALT (14-63) IU/L Alkaline Phosphatase (46-116) U/L Troponin I < 0.050 (0.000-0.056) ng/mL Total Protein (6.4-8.2) g/dL Albumin (3.4-5.0) g/dL Globulin (2.0-3.5) g/dL Albumin/Globulin Ratio (1.3-2.8) Vitamin B12 412 (193-986) pg/mL Folate (8.60-58.90) ng/mL 08/30/17 08/31/17 08/31/17 Range/Units 22:08 04:58 04:58 WBC 7.50 (4.0-11.0) K/uL RBC 3.01 L (4.30-5.90) M/uL Hgb 9.7 L (12.0-16.0) g/dL Hct 30.2 L (36.0-46.0) % MCV 100.3 H (80.0-98.0) fL MCH 32.2 H (27.0-32.0) pg MCHC 32.1 (31.0-37.0) g/dL RDW Std Deviation 53.6 (28.0-62.0) fl RDW Coeff of Josselyn 15 (11.0-15.0) % Plt Count 216 (150-400) K/uL MPV 10.90 (7.40-12.00) fL Nucleated RBC % 0.0 /100WBC Nucleated RBCs # 0 K/uL Sodium 141 (136-145) mmol/L Potassium 5.3 H (3.5-5.1) mmol/L Chloride 109 H (98-107) mmol/L Carbon Dioxide 27.0 (21.0-32.0) mmol/L BUN 31 H (7.0-18.0) mg/dL Creatinine 1.9 H (0.6-1.0) mg/dL Est Cr Clr Drug Dosing 15.44 mL/min Estimated GFR (MDRD) 24.9 ml/min Glucose 96 (74-106) mg/dL Calcium 8.2 L (8.5-10.1) mg/dL Iron (50-175) ug/dL TIBC (250-450) ug/dL % Saturation (20-55) % Ferritin (8-252) ng/mL Total Bilirubin 0.2 (0.2-1.0) mg/dL AST 20 (15-37) IU/L ALT 17 (14-63) IU/L Alkaline Phosphatase 54 (46-116) U/L Troponin I < 0.050 (0.000-0.056) ng/mL Total Protein 4.8 L (6.4-8.2) g/dL Albumin 2.5 L (3.4-5.0) g/dL Globulin 2.3 (2.0-3.5) g/dL Albumin/Globulin Ratio 1.1 L (1.3-2.8) Vitamin B12 (193-986) pg/mL Folate (8.60-58.90) ng/mL 08/31/17 Range/Units 04:58 WBC (4.0-11.0) K/uL RBC (4.30-5.90) M/uL Hgb (12.0-16.0) g/dL Hct (36.0-46.0) % MCV (80.0-98.0) fL MCH (27.0-32.0) pg MCHC (31.0-37.0) g/dL RDW Std Deviation (28.0-62.0) fl RDW Coeff of Josselyn (11.0-15.0) % Plt Count (150-400) K/uL MPV (7.40-12.00) fL Nucleated RBC % /100WBC Nucleated RBCs # K/uL Sodium (136-145) mmol/L Potassium (3.5-5.1) mmol/L Chloride (98-107) mmol/L Carbon Dioxide (21.0-32.0) mmol/L BUN (7.0-18.0) mg/dL Creatinine (0.6-1.0) mg/dL Est Cr Clr Drug Dosing mL/min Estimated GFR (MDRD) ml/min Glucose (74-106) mg/dL Calcium (8.5-10.1) mg/dL Iron (50-175) ug/dL TIBC (250-450) ug/dL % Saturation (20-55) % Ferritin (8-252) ng/mL Total Bilirubin (0.2-1.0) mg/dL AST (15-37) IU/L ALT (14-63) IU/L Alkaline Phosphatase (46-116) U/L Troponin I (0.000-0.056) ng/mL Total Protein (6.4-8.2) g/dL Albumin (3.4-5.0) g/dL Globulin (2.0-3.5) g/dL Albumin/Globulin Ratio (1.3-2.8) Vitamin B12 (193-986) pg/mL Folate 18.20 (8.60-58.90) ng/mL Med Orders - Current: Current Medications Albuterol/Ipratropium (Duoneb 3.0-0.5 Mg/3 Ml) 3 ml NEB Q4HRRT PRN PRN Reason: Shortness Of Breath/wheezing Cyanocobalamin (Vitamin B12) 1,000 mcg SUBCUT DAILY [facility] Stop: 09/07/17 12:31 Last Admin: 08/31/17 12:32 Dose: 1,000 mcg Diphenhydramine HCl (Benadryl) 50 mg IVPUSH Q6H PRN PRN Reason: Itching Guaifenesin/Codeine Phosphate (Robitussin Ac) 5 ml PO Q6H PRN PRN Reason: Cough Lactated Ringer's (Ringers, Lactated) 1,000 mls @ 150 mls/hr IV ASDIRECTED [facility] Last Admin: 08/31/17 07:54 Dose: 150 mls/hr Ondansetron HCl (Zofran) 4 mg IVPUSH Q4H PRN PRN Reason: Nausea Prednisolone Acetate (Pred Forte 1% Ophth Susp) 0 ml EYELF QID [facility] Last Admin: 08/31/17 12:15 Dose: 1 drop Senna/Docusate Sodium (Senna Plus) 1 tab PO BID PRN PRN Reason: Constipation Sodium Chloride (Saline Flush) 10 ml FLUSH ASDIRECTED PRN PRN Reason: Keep Vein Open Sodium Chloride (Saline Flush) 2.5 ml FLUSH ASDIRECTED PRN PRN Reason: Keep Vein Open Temazepam (Restoril) 15 mg PO BEDTIME PRN PRN Reason: Sleep Discontinued Medications Bacitracin (Bacitracin Oint 1 Gm) 1 dose TOP ONETIME ONE Stop: 08/30/17 12:08 Last Admin: 08/30/17 12:36 Dose: 1 dose Fluconazole (Diflucan) 150 mg PO ONETIME ONE Stop: 08/31/17 12:14 Sodium Chloride (Normal Saline) 1,000 mls @ 500 mls/hr IV STAT ONE Stop: 08/30/17 12:36 Last Admin: 08/30/17 10:57 Dose: 500 mls/hr Morphine Sulfate (Morphine) 2 mg IVPUSH Q2H PRN PRN Reason: Pain (severe 7-10) Stop: 08/31/17 13:16 Lidocaine/Prilocaine (Cream) 0 each TOP BID [facility] Prednisolone 1% (Ophthalmic) 0 each EYELF Q2H [facility] Last Admin: 08/30/17 20:45 Dose: Not Given Potassium Chloride (Klor-Con M20) 40 meq PO ONETIME ONE Stop: 08/30/17 11:59 Last Admin: 08/30/17 12:36 Dose: 40 meq Potassium Chloride (Klor-Con M20) 40 meq PO ONETIME ONE Stop: 08/30/17 13:33 Last Admin: 08/30/17 14:02 Dose: 40 meq Potassium Chloride (Klor-Con M20) 40 meq PO DAILY [facility] Last Admin: 08/31/17 08:43 Dose: 40 meq Prednisolone Acetate (Pred Forte 1% Ophth Susp) 0 ml EYELF Q2H [facility] Prednisone (Prednisone) 20 mg PO DAILY [facility] Last Admin: 08/31/17 08:43 Dose: 20 mg Sodium Polystyrene Sulfonate (Kayexalate) 45 gm PO NOW ONE Stop: 08/31/17 11:41 Last Admin: 08/31/17 12:10 Dose: 45 gm - Exam General: Alert, Oriented HEENT: Pupils Equal, Pupils Reactive, EOMI, Mucous Membr. Moist/[place] Lungs: Clear to Auscultation, Normal Respiratory Effort Cardiovascular: Regular Rate, Regular Rhythm Back Exam: Normal Inspection, Full Range of Motion Extremities: Normal Inspection, Normal Range of Motion, Non-Tender, No Pedal Edema, Normal Capillary Refill Peripheral Pulses: 2+: Posterior Tibial (R), Dorsalis Pedis (L) Skin: Ecchymosis Psy/Mental Status: Alert, Normal Affect, Normal Mood - Problem List Review Problem List Initiated/Reviewed/Updated: Yes - My Orders Last 24 Hours: My Active Orders 08/31/17 10:39 SCD [Sequential Compression Device] [OM.PC] Routine 08/31/17 15:00 POTASSIUM,K [CHEM] Routine - Plan Plan:: Assessment: #1. Syncope #2. SHIRA #3. Hyperkalemia #4. History of corneal implant, htn, hld Plan: #1. Continue 150mL/h of LR, recheck BMP after kayexalate #2. SHIRA - continue IVF #3. Possible discharge today evening or tomorrow AM <Kael Cope - Last Filed: 08/31/17 15:57> - Patient Data Vitals - Most Recent: Last Vital Signs Temp 99.3 F 08/31/17 12:00 Pulse 83 08/31/17 12:00 Resp 18 08/31/17 12:00 BP 144/75 H 08/31/17 12:00 Pulse Ox 92 L 08/31/17 12:00 Orthostatic Blood Pressure [ 129/56 Standing] Orthostatic Blood Pressure [ 125/57 Sitting] Orthostatic Blood Pressure [ 126/58 Supine] I&O - Last 24 Hours: Intake & Output 08/30/17 08/31/17 08/31/17 22:59 06:59 14:59 Intake Total 2175 Output Total 210 770 Balance -210 1405 Lab Results Last 24 Hours: Laboratory Results - last 24 hr 08/30/17 08/30/17 08/30/17 Range/Units 14:23 14:23 16:38 WBC (4.0-11.0) K/uL RBC (4.30-5.90) M/uL Hgb (12.0-16.0) g/dL Hct (36.0-46.0) % MCV (80.0-98.0) fL MCH (27.0-32.0) pg MCHC (31.0-37.0) g/dL RDW Std Deviation (28.0-62.0) fl RDW Coeff of Josselyn (11.0-15.0) % Plt Count (150-400) K/uL MPV (7.40-12.00) fL Nucleated RBC % /100WBC Nucleated RBCs # K/uL Sodium 140 (136-145) mmol/L Potassium 3.4 L (3.5-5.1) mmol/L Chloride 102 (98-107) mmol/L Carbon Dioxide 28.1 (21.0-32.0) mmol/L BUN 27 H (7.0-18.0) mg/dL Creatinine 2.0 H (0.6-1.0) mg/dL Est Cr Clr Drug Dosing 14.67 mL/min Estimated GFR (MDRD) 23.5 ml/min Glucose 108 H (74-106) mg/dL Calcium 9.2 (8.5-10.1) mg/dL Iron 52 (50-175) ug/dL TIBC 197 L (250-450) ug/dL % Saturation 26.40 (20-55) % Ferritin 385 H (8-252) ng/mL Total Bilirubin (0.2-1.0) mg/dL AST (15-37) IU/L ALT (14-63) IU/L Alkaline Phosphatase (46-116) U/L Troponin I < 0.050 (0.000-0.056) ng/mL Total Protein (6.4-8.2) g/dL Albumin (3.4-5.0) g/dL Globulin (2.0-3.5) g/dL Albumin/Globulin Ratio (1.3-2.8) Vitamin B12 412 (193-986) pg/mL Folate (8.60-58.90) ng/mL 08/30/17 08/31/17 08/31/17 Range/Units 22:08 04:58 04:58 WBC 7.50 (4.0-11.0) K/uL RBC 3.01 L (4.30-5.90) M/uL Hgb 9.7 L (12.0-16.0) g/dL Hct 30.2 L (36.0-46.0) % MCV 100.3 H (80.0-98.0) fL MCH 32.2 H (27.0-32.0) pg MCHC 32.1 (31.0-37.0) g/dL RDW Std Deviation 53.6 (28.0-62.0) fl RDW Coeff of Josselyn 15 (11.0-15.0) % Plt Count 216 (150-400) K/uL MPV 10.90 (7.40-12.00) fL Nucleated RBC % 0.0 /100WBC Nucleated RBCs # 0 K/uL Sodium 141 (136-145) mmol/L Potassium 5.3 H (3.5-5.1) mmol/L Chloride 109 H (98-107) mmol/L Carbon Dioxide 27.0 (21.0-32.0) mmol/L BUN 31 H (7.0-18.0) mg/dL Creatinine 1.9 H (0.6-1.0) mg/dL Est Cr Clr Drug Dosing 15.44 mL/min Estimated GFR (MDRD) 24.9 ml/min Glucose 96 (74-106) mg/dL Calcium 8.2 L (8.5-10.1) mg/dL Iron (50-175) ug/dL TIBC (250-450) ug/dL % Saturation (20-55) % Ferritin (8-252) ng/mL Total Bilirubin 0.2 (0.2-1.0) mg/dL AST 20 (15-37) IU/L ALT 17 (14-63) IU/L Alkaline Phosphatase 54 (46-116) U/L Troponin I < 0.050 (0.000-0.056) ng/mL Total Protein 4.8 L (6.4-8.2) g/dL Albumin 2.5 L (3.4-5.0) g/dL Globulin 2.3 (2.0-3.5) g/dL Albumin/Globulin Ratio 1.1 L (1.3-2.8) Vitamin B12 (193-986) pg/mL Folate (8.60-58.90) ng/mL 08/31/17 Range/Units 04:58 WBC (4.0-11.0) K/uL RBC (4.30-5.90) M/uL Hgb (12.0-16.0) g/dL Hct (36.0-46.0) % MCV (80.0-98.0) fL MCH (27.0-32.0) pg MCHC (31.0-37.0) g/dL RDW Std Deviation (28.0-62.0) fl RDW Coeff of Josselyn (11.0-15.0) % Plt Count (150-400) K/uL MPV (7.40-12.00) fL Nucleated RBC % /100WBC Nucleated RBCs # K/uL Sodium (136-145) mmol/L Potassium (3.5-5.1) mmol/L Chloride (98-107) mmol/L Carbon Dioxide (21.0-32.0) mmol/L BUN (7.0-18.0) mg/dL Creatinine (0.6-1.0) mg/dL Est Cr Clr Drug Dosing mL/min Estimated GFR (MDRD) ml/min Glucose (74-106) mg/dL Calcium (8.5-10.1) mg/dL Iron (50-175) ug/dL TIBC (250-450) ug/dL % Saturation (20-55) % Ferritin (8-252) ng/mL Total Bilirubin (0.2-1.0) mg/dL AST (15-37) IU/L ALT (14-63) IU/L Alkaline Phosphatase (46-116) U/L Troponin I (0.000-0.056) ng/mL Total Protein (6.4-8.2) g/dL Albumin (3.4-5.0) g/dL Globulin (2.0-3.5) g/dL Albumin/Globulin Ratio (1.3-2.8) Vitamin B12 (193-986) pg/mL Folate 18.20 (8.60-58.90) ng/mL Med Orders - Current: Current Medications Albuterol/Ipratropium (Duoneb 3.0-0.5 Mg/3 Ml) 3 ml NEB Q4HRRT PRN PRN Reason: Shortness Of Breath/wheezing Cyanocobalamin (Vitamin B12) 1,000 mcg SUBCUT DAILY [facility] Stop: 09/07/17 12:31 Last Admin: 08/31/17 12:32 Dose: 1,000 mcg Diphenhydramine HCl (Benadryl) 50 mg IVPUSH Q6H PRN PRN Reason: Itching Guaifenesin/Codeine Phosphate (Robitussin Ac) 5 ml PO Q6H PRN PRN Reason: Cough Lactated Ringer's (Ringers, Lactated) 1,000 mls @ 150 mls/hr IV ASDIRECTED [facility] Last Admin: 08/31/17 07:54 Dose: 150 mls/hr Ondansetron HCl (Zofran) 4 mg IVPUSH Q4H PRN PRN Reason: Nausea Prednisolone Acetate (Pred Forte 1% Ophth Susp) 0 ml EYELF QID [facility] Last Admin: 08/31/17 12:15 Dose: 1 drop Senna/Docusate Sodium (Senna Plus) 1 tab PO BID PRN PRN Reason: Constipation Sodium Chloride (Saline Flush) 10 ml FLUSH ASDIRECTED PRN PRN Reason: Keep Vein Open Sodium Chloride (Saline Flush) 2.5 ml FLUSH ASDIRECTED PRN PRN Reason: Keep Vein Open Temazepam (Restoril) 15 mg PO BEDTIME PRN PRN Reason: Sleep Discontinued Medications Bacitracin (Bacitracin Oint 1 Gm) 1 dose TOP ONETIME ONE Stop: 08/30/17 12:08 Last Admin: 08/30/17 12:36 Dose: 1 dose Fluconazole (Diflucan) 150 mg PO ONETIME ONE Stop: 08/31/17 12:14 Sodium Chloride (Normal Saline) 1,000 mls @ 500 mls/hr IV STAT ONE Stop: 08/30/17 12:36 Last Admin: 08/30/17 10:57 Dose: 500 mls/hr Morphine Sulfate (Morphine) 2 mg IVPUSH Q2H PRN PRN Reason: Pain (severe 7-10) Stop: 08/31/17 13:16 Lidocaine/Prilocaine (Cream) 0 each TOP BID [facility] Prednisolone 1% (Ophthalmic) 0 each EYELF Q2H [facility] Last Admin: 08/30/17 20:45 Dose: Not Given Potassium Chloride (Klor-Con M20) 40 meq PO ONETIME ONE Stop: 08/30/17 11:59 Last Admin: 08/30/17 12:36 Dose: 40 meq Potassium Chloride (Klor-Con M20) 40 meq PO ONETIME ONE Stop: 08/30/17 13:33 Last Admin: 08/30/17 14:02 Dose: 40 meq Potassium Chloride (Klor-Con M20) 40 meq PO DAILY [facility] Last Admin: 08/31/17 08:43 Dose: 40 meq Prednisolone Acetate (Pred Forte 1% Ophth Susp) 0 ml EYELF Q2H [facility] Prednisone (Prednisone) 20 mg PO DAILY [facility] Last Admin: 08/31/17 08:43 Dose: 20 mg Sodium Polystyrene Sulfonate (Kayexalate) 45 gm PO NOW ONE Stop: 08/31/17 11:41 Last Admin: 08/31/17 12:10 Dose: 45 gm - My Orders Last 24 Hours: My Active Orders 08/30/17 17:20 Codeine/guaiFENesin [Robitussin AC] 5 ml PO Q6H PRN 08/30/17 20:41 diphenhydrAMINE [Benadryl] 50 mg IVPUSH Q6H PRN 08/30/17 20:46 prednisoLONE Acetate [Pred Forte 1% Ophth Susp] 0 ml EYELF QID 08/31/17 12:30 Cyanocobalamin (Vitamin B12) [Vitamin B12] 1,000 mcg SUBCUT DAILY 08/31/17 Dinner Regular Diet [DIET] 09/01/17 05:11 BASIC METABOLIC PANEL,BMP [CHEM] AM CBC W/O DIFF,HEMOGRAM [HEME] AM CMP [COMPREHENSIVE METABOLIC PN,CMP] [CHEM] AM 09/02/17 05:11 BASIC METABOLIC PANEL,BMP [CHEM] AM CBC W/O DIFF,HEMOGRAM [HEME] AM CMP [COMPREHENSIVE METABOLIC PN,CMP] [CHEM] AM 09/03/17 05:11 BASIC METABOLIC PANEL,BMP [CHEM] AM CBC W/O DIFF,HEMOGRAM [HEME] AM CMP [COMPREHENSIVE METABOLIC PN,CMP] [CHEM] AM 09/04/17 05:11 BASIC METABOLIC PANEL,BMP [CHEM] AM CBC W/O DIFF,HEMOGRAM [HEME] AM CMP [COMPREHENSIVE METABOLIC PN,CMP] [CHEM] AM 09/05/17 05:11 BASIC METABOLIC PANEL,BMP [CHEM] AM CMP [COMPREHENSIVE METABOLIC PN,CMP] [CHEM] AM - Plan Plan:: Patient seen and examined , discussed with resident. Agree with assessment and plan. Anemia- macrocytic - also of chronic disease , also possible B12 deficiency , ( 15 % of patients with vitamin B12 level below 450 can still have B12 def , will give patient vitamin B12 1000 mcg iv q daily for 7 days
[2017-08-31] MEDS ORDERED: 50% Dextrose in Water 50 ML Syringe IVPUSH ONE (20:55)
[2017-08-31] MEDS ORDERED: Insulin Aspart 100 Units/ML 3 ML Pen SUBCUT ONE (21:00)
[2017-09-01] MEDS: prednisoLONE Acetate 1% Ophth Susp 5 ML Bottle EYELF SCH ×2 (00:17→06:38)
[2017-09-01 08:44] VITALS: BP 145/77
[2017-09-01] MEDS: Cyanocobalamin (Vitamin B12) 1,000 MCG/ML SDV SUBCUT SCH (08:45)
--- NOTE | 2017-09-01 09:59 | PCM.DCSUM1 ---
<Navdeep Pryor - Last Filed: 09/01/17 09:53> Discharge Summary - Hospital Course Free Text/Narrative:: Admission date: 08/30/2017 Discharge date: 09/01/2017 Admission diagnosis: #1. Syncope #2. Hypokalemia #3. Generalized weakness #4. SHIRA #5. HTN #6. Hypothyroidism #7. S/p corneal transplant #8. s/p IV antibiotics last week for treatment of eye infection #9. osteoporosis #10. neuropathy Discharge diagnosis: #1. Syncope - no further episodes #2. Hypokalemia - resolved #3. Generalized weakness - improved #4. SHIRA - improved #5. HTN - stable #6. Hypothyroidism #7. S/p corneal transplant #8. s/p IV antibiotics last week for treatment of eye infection #9. osteoporosis #10. neuropathy #11. Urticaria Hospital course: 87F that presented after having a syncopal episode at home presented for evaluation. Her stay was uncomplicated, with echocardiogram and carotid US obtained that were unremarkable. Potassium was repleted. She had concerns about dc secondary to ambulatory dysfunction but was evaluated by PT. She did well with PT. She didn't want any sort of home health care, nor did she qualify for it. She was given a pamphlet for visiting angel. Pt also complained of generalized itching which has been an ongoing issue without an etiology. She was given a prescription for doxepin and loratadine. At DC, her Cr was 1.5, which is improved. She should have a repeat BMP at the outpatient visit. - Discharge Data Discharge Date: 09/01/17 Discharge Disposition: Home, Self-Care 01 Condition: Fair - Patient Summary/Data Consults: Consultations 08/31/17 14:25 Consult to Physical Therapy [PT Evaluation and Treatment] [CONS] Routine 08/31/17 15:47 Consult to Home Health [CONS] Routine - Discharge Plan Prescriptions/Med Rec: Doxepin [SINEquan] 10 mg PO BEDTIME #15 cap Loratadine 10 mg PO DAILY #30 tab.rapdis Home Medications: Home Meds Cephalexin 250 mg PO QID 08/30/17 [History] Estrogens, Conjugated [Premarin Vaginal Crm] 1 applic VAG ASDIRECTED 08/30/17 [ History] Furosemide 20 mg PO DAILY 08/30/17 [History] Ondansetron [Zofran ODT] 4 mg PO TID PRN 08/30/17 [History] Patient's Own Medication [Ptom] 1 applic TOP BID 08/30/17 [History] guaiFENesin/Codeine Phosphate [Cheratussin AC Syrup] 1 tsp PO Q6H PRN 08/30/17 [ History] hydrOXYzine Pamoate [Hydroxyzine Pamoate] 25 mg PO QID PRN 08/30/17 [History] predniSONE [Prednisone] 20 mg PO DAILY 08/30/17 [History] prednisoLONE Acetate [Pred Forte 1% Ophth Susp] 1 drop EYELF QID 08/30/17 [ History] Gabapentin [Neurontin] 900 mg PO BID 08/31/17 [History] Levothyroxine [Synthroid] 100 mcg PO DAILY 08/31/17 [History] Losartan [Cozaar] 100 mg PO DAILY 08/31/17 [History] Doxepin [SINEquan] 10 mg PO BEDTIME #15 cap 09/01/17 [Rx] Loratadine 10 mg PO DAILY #30 tab.rapdis 09/01/17 [Rx] Patient Handouts: Hypokalemia, Doxepin oral tablets, Loratadine tablets, Syncope, [id number] Referrals: [facility] [Outside] James Foster MD [Physician] - 09/19/17 12:30 pm - Patient Data Vitals - Most Recent: Last Vital Signs Temp 36.6 C 09/01/17 08:00 Pulse 80 09/01/17 08:00 Resp 17 09/01/17 08:00 BP 145/77 H 09/01/17 08:00 Pulse Ox 98 09/01/17 08:00 Orthostatic Blood Pressure [ 129/56 Standing] Orthostatic Blood Pressure [ 125/57 Sitting] Orthostatic Blood Pressure [ 126/58 Supine] Weight - Most Recent: 128 lb 15.527 oz I&O - Last 24 hours: Intake & Output 08/31/17 09/01/17 09/01/17 22:59 06:59 14:59 Intake Total 2220 450 Output Total 1500 200 Balance 720 250 Lab Results - Last 24 hrs: Laboratory Results - last 24 hr 08/31/17 08/31/17 08/31/17 Range/Units 04:58 04:58 18:20 WBC (4.0-11.0) K/uL RBC (4.30-5.90) M/uL Hgb (12.0-16.0) g/dL Hct (36.0-46.0) % MCV (80.0-98.0) fL MCH (27.0-32.0) pg MCHC (31.0-37.0) g/dL RDW Std Deviation (28.0-62.0) fl RDW Coeff of Josselyn (11.0-15.0) % Plt Count (150-400) K/uL MPV (7.40-12.00) fL Sodium 141 144 (136-145) mmol/L Potassium 5.3 H 5.0 (3.5-5.1) mmol/L Chloride 109 H 109 H (98-107) mmol/L Carbon Dioxide 27.0 23.5 (21.0-32.0) mmol/L BUN 31 H 26 H (7.0-18.0) mg/dL Creatinine 1.9 H 1.8 H (0.6-1.0) mg/dL Est Cr Clr Drug Dosing 15.44 16.30 mL/min Estimated GFR (MDRD) 24.9 26.6 ml/min Glucose 96 270 H (74-106) mg/dL Calcium 8.2 L 9.1 (8.5-10.1) mg/dL Total Bilirubin 0.2 (0.2-1.0) mg/dL AST 20 (15-37) IU/L ALT 17 (14-63) IU/L Alkaline Phosphatase 54 (46-116) U/L Total Protein 4.8 L (6.4-8.2) g/dL Albumin 2.5 L (3.4-5.0) g/dL Globulin 2.3 (2.0-3.5) g/dL Albumin/Globulin Ratio 1.1 L (1.3-2.8) Folate 18.20 (8.60-58.90) ng/mL 09/01/17 09/01/17 Range/Units 04:55 04:55 WBC 8.62 (4.0-11.0) K/uL RBC 2.72 L (4.30-5.90) M/uL Hgb 9.1 L (12.0-16.0) g/dL Hct 28.8 L (36.0-46.0) % MCV 105.9 H (80.0-98.0) fL MCH 33.5 H (27.0-32.0) pg MCHC 31.6 (31.0-37.0) g/dL RDW Std Deviation 51.5 (28.0-62.0) fl RDW Coeff of Josselyn 14 (11.0-15.0) % Plt Count 192 (150-400) K/uL MPV 11.70 (7.40-12.00) fL Sodium 144 (136-145) mmol/L Potassium 4.2 (3.5-5.1) mmol/L Chloride 110 H (98-107) mmol/L Carbon Dioxide 27.7 (21.0-32.0) mmol/L BUN 28 H (7.0-18.0) mg/dL Creatinine 1.5 H (0.6-1.0) mg/dL Est Cr Clr Drug Dosing 19.56 mL/min Estimated GFR (MDRD) 32.8 ml/min Glucose 124 H (74-106) mg/dL Calcium 8.4 L (8.5-10.1) mg/dL Total Bilirubin 0.2 (0.2-1.0) mg/dL AST 21 (15-37) IU/L ALT 18 (14-63) IU/L Alkaline Phosphatase 54 (46-116) U/L Total Protein 4.8 L (6.4-8.2) g/dL Albumin 2.5 L (3.4-5.0) g/dL Globulin 2.3 (2.0-3.5) g/dL Albumin/Globulin Ratio 1.1 L (1.3-2.8) Folate (8.60-58.90) ng/mL Med Orders - Current: Current Medications Albuterol/Ipratropium (Duoneb 3.0-0.5 Mg/3 Ml) 3 ml NEB Q4HRRT PRN PRN Reason: Shortness Of Breath/wheezing Cyanocobalamin (Vitamin B12) 1,000 mcg SUBCUT DAILY RIGOBERTO Stop: 09/07/17 12:31 Last Admin: 09/01/17 08:45 Dose: 1,000 mcg Diphenhydramine HCl (Benadryl) 50 mg IVPUSH Q6H PRN PRN Reason: Itching Guaifenesin/Codeine Phosphate (Robitussin Ac) 5 ml PO Q6H PRN PRN Reason: Cough Lactated Ringer's (Ringers, Lactated) 1,000 mls @ 150 mls/hr IV ASDIRECTED [facility] Last Admin: 08/31/17 07:54 Dose: 150 mls/hr Ondansetron HCl (Zofran) 4 mg IVPUSH Q4H PRN PRN Reason: Nausea Prednisolone Acetate (Pred Forte 1% Ophth Susp) 0 ml EYELF QID [facility] Last Admin: 09/01/17 06:38 Dose: 1 drop Senna/Docusate Sodium (Senna Plus) 1 tab PO BID PRN PRN Reason: Constipation Sodium Chloride (Saline Flush) 10 ml FLUSH ASDIRECTED PRN PRN Reason: Keep Vein Open Sodium Chloride (Saline Flush) 2.5 ml FLUSH ASDIRECTED PRN PRN Reason: Keep Vein Open Temazepam (Restoril) 15 mg PO BEDTIME PRN PRN Reason: Sleep Discontinued Medications Bacitracin (Bacitracin Oint 1 Gm) 1 dose TOP ONETIME ONE Stop: 08/30/17 12:08 Last Admin: 08/30/17 12:36 Dose: 1 dose Dextrose/Water (Dextrose 50% In Water) 50 ml IVPUSH ONETIME ONE Stop: 08/31/17 20:56 Last Admin: 08/31/17 21:06 Dose: Not Given Fluconazole (Diflucan) 150 mg PO ONETIME ONE Stop: 08/31/17 12:14 Last Admin: 08/31/17 15:03 Dose: 150 mg Sodium Chloride (Normal Saline) 1,000 mls @ 500 mls/hr IV STAT ONE Stop: 08/30/17 12:36 Last Admin: 08/30/17 10:57 Dose: 500 mls/hr Insulin Aspart (Novolog) 5 unit SUBCUT ONETIME ONE; Protocol Stop: 08/31/17 21:01 Last Admin: 08/31/17 21:06 Dose: Not Given Morphine Sulfate (Morphine) 2 mg IVPUSH Q2H PRN PRN Reason: Pain (severe 7-10) Stop: 08/31/17 13:16 Lidocaine/Prilocaine (Cream) 0 each TOP BID RIGOBERTO Prednisolone 1% (Ophthalmic) 0 each EYELF Q2H RIGOBERTO Last Admin: 08/30/17 20:45 Dose: Not Given Potassium Chloride (Klor-Con M20) 40 meq PO ONETIME ONE Stop: 08/30/17 11:59 Last Admin: 08/30/17 12:36 Dose: 40 meq Potassium Chloride (Klor-Con M20) 40 meq PO ONETIME ONE Stop: 08/30/17 13:33 Last Admin: 08/30/17 14:02 Dose: 40 meq Potassium Chloride (Klor-Con M20) 40 meq PO DAILY [facility] Last Admin: 08/31/17 08:43 Dose: 40 meq Prednisolone Acetate (Pred Forte 1% Ophth Susp) 0 ml EYELF Q2H [facility] Prednisone (Prednisone) 20 mg PO DAILY [facility] Last Admin: 08/31/17 08:43 Dose: 20 mg Sodium Polystyrene Sulfonate (Kayexalate) 45 gm PO NOW ONE Stop: 08/31/17 11:41 Last Admin: 08/31/17 12:10 Dose: 45 gm <Kael Cope - Last Filed: 09/01/17 16:51> Discharge Summary - Hospital Course Free Text/Narrative:: Patient was told to drink fluids , at least 2000 cc a day . Losartan was held. 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 US kidney showed some kidney atrophy . f/up bun /creat , k level in the clinic with the biomedical engineering aide. discharged home with home care. Patient was seen and discussed with the biomedical engineering aide. Agree with discharge summary. - Patient Summary/Data Consults: Consultations 08/31/17 14:25 Consult to Physical Therapy [PT Evaluation and Treatment] [CONS] Routine 08/31/17 15:47 Consult to Home Health [CONS] Routine - Patient Data Vitals - Most Recent: Last Vital Signs Temp 97.8 F 09/01/17 08:00 Pulse 80 09/01/17 08:00 Resp 17 09/01/17 08:00 BP 145/77 H 09/01/17 08:00 Pulse Ox 98 09/01/17 08:00 Orthostatic Blood Pressure [ 129/56 Standing] Orthostatic Blood Pressure [ 125/57 Sitting] Orthostatic Blood Pressure [ 126/58 Supine] I&O - Last 24 hours: Intake & Output 09/01/17 09/01/17 09/01/17 06:59 14:59 22:59 Intake Total 450 Output Total 200 Balance 250 Lab Results - Last 24 hrs: Laboratory Results - last 24 hr 08/31/17 09/01/17 09/01/17 Range/Units 18:20 04:55 04:55 WBC 8.62 (4.0-11.0) K/uL RBC 2.72 L (4.30-5.90) M/uL Hgb 9.1 L (12.0-16.0) g/dL Hct 28.8 L (36.0-46.0) % MCV 105.9 H (80.0-98.0) fL MCH 33.5 H (27.0-32.0) pg MCHC 31.6 (31.0-37.0) g/dL RDW Std Deviation 51.5 (28.0-62.0) fl RDW Coeff of Josselyn 14 (11.0-15.0) % Plt Count 192 (150-400) K/uL MPV 11.70 (7.40-12.00) fL Sodium 144 144 (136-145) mmol/L Potassium 5.0 4.2 (3.5-5.1) mmol/L Chloride 109 H 110 H (98-107) mmol/L Carbon Dioxide 23.5 27.7 (21.0-32.0) mmol/L BUN 26 H 28 H (7.0-18.0) mg/dL Creatinine 1.8 H 1.5 H (0.6-1.0) mg/dL Est Cr Clr Drug Dosing 16.30 19.56 mL/min Estimated GFR (MDRD) 26.6 32.8 ml/min Glucose 270 H 124 H (74-106) mg/dL Calcium 9.1 8.4 L (8.5-10.1) mg/dL Total Bilirubin 0.2 (0.2-1.0) mg/dL AST 21 (15-37) IU/L ALT 18 (14-63) IU/L Alkaline Phosphatase 54 (46-116) U/L Total Protein 4.8 L (6.4-8.2) g/dL Albumin 2.5 L (3.4-5.0) g/dL Globulin 2.3 (2.0-3.5) g/dL Albumin/Globulin Ratio 1.1 L (1.3-2.8) Med Orders - Current: Current Medications Discontinued Medications Albuterol/Ipratropium (Duoneb 3.0-0.5 Mg/3 Ml) 3 ml NEB Q4HRRT PRN PRN Reason: Shortness Of Breath/wheezing Bacitracin (Bacitracin Oint 1 Gm) 1 dose TOP ONETIME ONE Stop: 08/30/17 12:08 Last Admin: 08/30/17 12:36 Dose: 1 dose Cyanocobalamin (Vitamin B12) 1,000 mcg SUBCUT DAILY [facility] Stop: 09/07/17 12:31 Last Admin: 09/01/17 08:45 Dose: 1,000 mcg Dextrose/Water (Dextrose 50% In Water) 50 ml IVPUSH ONETIME ONE Stop: 08/31/17 20:56 Last Admin: 08/31/17 21:06 Dose: Not Given Diphenhydramine HCl (Benadryl) 50 mg IVPUSH Q6H PRN PRN Reason: Itching Doxepin HCl (Sinequan) 25 mg PO BEDTIME RIGOBERTO Fluconazole (Diflucan) 150 mg PO ONETIME ONE Stop: 08/31/17 12:14 Last Admin: 08/31/17 15:03 Dose: 150 mg Gabapentin (Neurontin) 900 mg PO BID RIGOBERTO Guaifenesin/Codeine Phosphate (Robitussin Ac) 5 ml PO Q6H PRN PRN Reason: Cough Sodium Chloride (Normal Saline) 1,000 mls @ 500 mls/hr IV STAT ONE Stop: 08/30/17 12:36 Last Admin: 08/30/17 10:57 Dose: 500 mls/hr Lactated Ringer's (Ringers, Lactated) 1,000 mls @ 150 mls/hr IV ASDIRECTED RIGOBERTO Last Admin: 08/31/17 07:54 Dose: 150 mls/hr Insulin Aspart (Novolog) 5 unit SUBCUT ONETIME ONE; Protocol Stop: 08/31/17 21:01 Last Admin: 08/31/17 21:06 Dose: Not Given Levothyroxine Sodium (Synthroid) 100 mcg PO ACBREAKFAST [facility] Loratadine (Claritin) 10 mg PO DAILY [facility] Morphine Sulfate (Morphine) 2 mg IVPUSH Q2H PRN PRN Reason: Pain (severe 7-10) Stop: 08/31/17 13:16 Ondansetron HCl (Zofran) 4 mg IVPUSH Q4H PRN PRN Reason: Nausea Ondansetron HCl (Zofran Odt) 4 mg PO TID PRN PRN Reason: Nausea/Vomiting Lidocaine/Prilocaine (Cream) 0 each TOP BID [facility] Prednisolone 1% (Ophthalmic) 0 each EYELF Q2H [facility] Last Admin: 08/30/17 20:45 Dose: Not Given Potassium Chloride (Klor-Con M20) 40 meq PO ONETIME ONE Stop: 08/30/17 11:59 Last Admin: 08/30/17 12:36 Dose: 40 meq Potassium Chloride (Klor-Con M20) 40 meq PO ONETIME ONE Stop: 08/30/17 13:33 Last Admin: 08/30/17 14:02 Dose: 40 meq Potassium Chloride (Klor-Con M20) 40 meq PO DAILY [facility] Last Admin: 08/31/17 08:43 Dose: 40 meq Prednisolone Acetate (Pred Forte 1% Ophth Susp) 0 ml EYELF Q2H RIGOBERTO Prednisolone Acetate (Pred Forte 1% Ophth Susp) 0 ml EYELF QID [facility] Last Admin: 09/01/17 06:38 Dose: 1 drop Prednisone (Prednisone) 20 mg PO DAILY [facility] Last Admin: 08/31/17 08:43 Dose: 20 mg Senna/Docusate Sodium (Senna Plus) 1 tab PO BID PRN PRN Reason: Constipation Sodium Chloride (Saline Flush) 10 ml FLUSH ASDIRECTED PRN PRN Reason: Keep Vein Open Sodium Chloride (Saline Flush) 2.5 ml FLUSH ASDIRECTED PRN PRN Reason: Keep Vein Open Sodium Polystyrene Sulfonate (Kayexalate) 45 gm PO NOW ONE Stop: 08/31/17 11:41 Last Admin: 08/31/17 12:10 Dose: 45 gm Temazepam (Restoril) 15 mg PO BEDTIME PRN PRN Reason: Sleep
[2017-09-01] MEDS ORDERED: Ondansetron 4 MG Tab.DIS PO PRN (10:01)
[2017-09-01] MEDS ORDERED: Gabapentin 300 MG Cap PO SCH (10:15)
[2017-09-01] MEDS ORDERED: Levothyroxine 100 MCG Tab PO SCH (10:15)
[2017-09-01] MEDS ORDERED: Doxepin 25 MG Cap PO SCH (21:00)
[2017-09-02] MEDS ORDERED: Loratadine 10 MG Tab PO SCH (09:00)
--- NOTE | 2017-09-02 16:26 | ECHO ---
The echocardiogram report can be seen in this patient's EMR (Electronic Medical Record) in the Reports section. The report has been scan into PACS and can be seen there as well. YUNIER
== END 2017-09-01 10:25 | disposition home or self-care (01) ==
LOC: MW.ED 10:35 → MW.MS 11:51
PROVIDERS: ADMIT Internal Medicine; ATTEND Internal Medicine
DX: R55 Syncope and collapse (principal); E03.9 Hypothyroidism, unspecified; E87.6 Hypokalemia; I10 Essential (primary) hypertension; G62.9 Polyneuropathy, unspecified; M81.0 Age-related osteoporosis without current pathological fracture; N17.9 Acute kidney failure, unspecified; Z79.899 Other long term (current) drug therapy; Z88.0 Allergy status to penicillin; Z88.2 Allergy status to sulfonamides
CPT/HCPCS: 36415; 70450; 70450-26; 71045; 71045-26; 72125; 72125-26; 76770; 76770-26; 80048; 80053; 81001; 82607; 82728; 82746; 83550; 84484; 85025; 85027; 93306; 93880; 93880-26; 96360; 96361; 97161-GP; 99285; 99285-25; A9270-GY; J3420; J7040; J7120

== ENCOUNTER 2017-09-18 14:20 | Emergency (ER) | payer MEDICARE, OTHER ==
[2017-09-18 15:45] LABS: CHLORIDE,CL 106 mmol/L (98-107); SODIUM,NA 144 mmol/L (136-145)
[2017-09-18 16:19] VITALS: BP 125/71
--- NOTE | 2017-09-18 16:30 | EDM.PDOC ---
ED HPI GENERAL MEDICAL PROBLEM - General Chief Complaint: Neuro Symptoms/Deficits Stated Complaint: PT IS VERY CONFUSE Time Seen by Provider: 09/18/17 14:43 Source of Information: Reports: Patient History Limitations: Reports: No Limitations - History of Present Illness INITIAL COMMENTS - FREE TEXT/NARRATIVE: History of present illness: []Patient was brought in by her for confusion today. He states "she's not all there". Patient walks with a walker and has not been more unstable. She has no speech deficits or weakness on either side of her body. The sensation has not had any recent illnesses but does have problems with chronic bladder infections. Review of systems: As per history of present illness and below otherwise all systems reviewed and negative. Past medical history: As per history of present illness and as reviewed below otherwise noncontributory. Surgical history: As per history of present illness and as reviewed below otherwise noncontributory. Social history: No reported history of drug or alcohol abuse. Family history: As per history of present illness and as reviewed below otherwise noncontributory. Physical exam: General: Well developed, well nourished in NAD HEENT: Atraumatic, normocephalic, pupils reactive, negative for conjunctival pallor or scleral icterus, mucous membranes moist, throat clear, neck supple, nontender, trachea midline. Lungs: Clear to auscultation, breath sounds equal bilaterally, chest nontender. Heart: S1S2, regular, negative for clicks, rubs, or JVD. Abdomen: Soft, nondistended, nontender. Negative for masses or hepatosplenomegaly. Negative for costovertebral tenderness. Pelvis: Stable nontender. Genitourinary: Deferred. Rectal: Deferred. Extremities: Atraumatic, negative for cords or calf pain. Neurovascular unremarkable. Neuro: Awake, alert, oriented. Cranial nerves II through XII unremarkable. Cerebellum unremarkable. Motor and sensory unremarkable throughout. Exam nonfocal. Diagnostics: []CBC normal, chemistry normal, UA shows 20-30 white blood cells with positive nitrites Therapeutics: []Ceftriaxone IV Impression: []UTI Plan: []Nitrofurantoin as directed follow-up with PMD Definitive disposition and diagnosis as appropriate pending reevaluation and review of above. Back Pain Score (Numeric/FACES): 8 - Related Data Allergies Allergy/AdvReac Type Severity Reaction Status Date / Time Penicillins Allergy Swelling Verified 09/18/17 16:16 procaine HCl [From Novocain] Allergy Difficulty Verified 09/18/17 16:16 Breathing Sulfa (Sulfonamide Allergy Cannot Verified 09/18/17 16:16 Antibiotics) Remember Home Meds: Home Meds Estrogens, Conjugated [Premarin Vaginal Crm] 1 applic VAG ASDIRECTED 08/30/17 [ History] Furosemide 20 mg PO DAILY 08/30/17 [History] Ondansetron [Zofran ODT] 4 mg PO TID PRN 08/30/17 [History] Patient's Own Medication [Ptom] 1 applic TOP BID 08/30/17 [History] guaiFENesin/Codeine Phosphate [Cheratussin AC Syrup] 1 tsp PO Q6H PRN 08/30/17 [ History] hydrOXYzine Pamoate [Hydroxyzine Pamoate] 25 mg PO QID PRN 08/30/17 [History] predniSONE [Prednisone] 20 mg PO DAILY 08/30/17 [History] prednisoLONE Acetate [Pred Forte 1% Ophth Susp] 1 drop EYELF QID 08/30/17 [ History] Gabapentin [Neurontin] 900 mg PO BID 08/31/17 [History] Levothyroxine [Synthroid] 100 mcg PO DAILY 08/31/17 [History] Losartan [Cozaar] 100 mg PO DAILY 08/31/17 [History] Doxepin [SINEquan] 10 mg PO BEDTIME #15 cap 09/01/17 [Rx] Loratadine 10 mg PO DAILY #30 tab.rapdis 09/01/17 [Rx] Nitrofurantoin Macrocrystal [Macrodantin] 100 mg PO BID #14 capsule 09/18/17 [Rx ] Past Medical History HEENT History: Reports: Impaired Vision Cardiovascular History: Reports: High Cholesterol, Hypertension Respiratory History: Reports: COPD Gastrointestinal History: Reports: Diverticulosis Genitourinary History: Reports: UTI, Recurrent [employer] History: Reports: None Musculoskeletal History: Reports: Back Pain, Chronic, Fracture, Other (See Below ) Other Musculoskeletal History: ankle fx. 2016; humerus fx. 2017. sciatica Neurological History: Reports: Other (See Below) Other Neuro History: facial nerve pain Psychiatric History: Reports: None Endocrine/Metabolic History: Reports: Hypothyroidism Hematologic History: Reports: None Immunologic History: Reports: None Oncologic (Cancer) History: Reports: None Dermatologic History: Reports: None - Infectious Disease History Infectious Disease History: Reports: None - Past Surgical History Head Surgeries/Procedures: Reports: None HEENT Surgical History: Reports: Other (See Below) Other HEENT Surgeries/Procedures: cornea transplant 5 years ago; eye infection in left eye which she is being seen by eye doctor for; multiple eye surgeries Cardiovascular Surgical History: Reports: None Respiratory Surgical History: Reports: None GI Surgical History: Reports: Appendectomy, Colonoscopy, EGD Female Surgical History: Reports: None Endocrine Surgical History: Reports: None Neurological Surgical History: Reports: None Musculoskeletal Surgical History: Reports: Other (See Below) Social & Family History - Family History Family Medical History: Noncontributory - Tobacco Use Smoking Status *Q: Never Smoker - Caffeine Use Caffeine Use: Reports: Coffee - Recreational Drug Use Recreational Drug Use: No ED ROS GENERAL - Review of Systems Review Of Systems: ROS reveals no pertinent complaints other than HPI. ED EXAM, NEURO - Physical Exam Exam: See Below (See history of present illness) Course - Vital Signs Last Recorded V/S: Last Vital Signs Temp 97.5 F 09/18/17 15:00 Pulse 78 09/18/17 15:00 Resp 18 09/18/17 15:00 BP 125/71 09/18/17 15:00 Pulse Ox 97 09/18/17 15:00 - Orders/Labs/Meds Orders: Active Orders 24 hr Category Date Time Status EKG Documentation Completion [RC] STAT Care 09/18/17 15:10 Active Head wo Cont [CT] Stat Exams 09/18/17 14:57 Taken UA W/MICROSCOPIC [URIN] Stat Lab 09/18/17 16:00 Ordered cefTRIAXone [Rocephin in Dextrose,Iso-Osm 1 GM/50 ML] 1 Med 09/18/17 16:27 Active gm Premix Bag 1 bag IV ONETIME Medication Orders Ceftriaxone Sodium/Dextrose 1 (gm/ Premix) 50 mls @ 100 mls/hr IV ONETIME ONE Stop: 09/18/17 16:56 Labs: Laboratory Tests 09/18/17 09/18/17 09/18/17 Range/Units 15:08 15:08 16:00 WBC 5.76 (4.0-11.0) K/uL RBC 3.30 L (4.30-5.90) M/uL Hgb 11.1 L (12.0-16.0) g/dL Hct 33.4 L (36.0-46.0) % MCV 101.2 H (80.0-98.0) fL MCH 33.6 H (27.0-32.0) pg MCHC 33.2 (31.0-37.0) g/dL RDW Std Deviation 51.6 (28.0-62.0) fl RDW Coeff of Josselyn 14 (11.0-15.0) % Plt Count 174 (150-400) K/uL MPV 10.40 (7.40-12.00) fL Neut % (Auto) 62.1 (48.0-80.0) % Lymph % (Auto) 26.6 (16.0-40.0) % [place] % (Auto) 8.9 (0.0-15.0) % Eos % (Auto) 1.7 (0.0-7.0) % Baso % (Auto) 0.7 (0.0-1.5) % Neut # (Auto) 3.6 (1.4-5.7) K/uL Lymph # (Auto) 1.5 (0.6-2.4) K/uL [place] # (Auto) 0.5 (0.0-0.8) K/uL Eos # (Auto) 0.1 (0.0-0.7) K/uL Baso # (Auto) 0.0 (0.0-0.1) K/uL Nucleated RBC % 0.0 /100WBC Nucleated RBCs # 0 K/uL Sodium 144 (136-145) mmol/L Potassium 3.8 (3.5-5.1) mmol/L Chloride 106 (98-107) mmol/L Carbon Dioxide 28.2 (21.0-32.0) mmol/L BUN 27 H (7.0-18.0) mg/dL Creatinine 1.5 H (0.6-1.0) mg/dL Est Cr Clr Drug Dosing TNP Estimated GFR (MDRD) 32.8 ml/min Glucose 104 (74-106) mg/dL Calcium 9.5 (8.5-10.1) mg/dL Total Bilirubin 0.6 (0.2-1.0) mg/dL AST 26 (15-37) IU/L ALT 21 (14-63) IU/L Alkaline Phosphatase 59 (46-116) U/L Total Protein 6.4 (6.4-8.2) g/dL Albumin 3.3 L (3.4-5.0) g/dL Globulin 3.1 (2.0-3.5) g/dL Albumin/Globulin Ratio 1.1 L (1.3-2.8) Urine Color YELLOW Urine Appearance CLOUDY Urine pH 7.0 (5.0-8.0) Ur Specific [place] 1.015 (1.001-1.035) Urine Protein TRACE (NEGATIVE) mg/dL Urine Glucose (UA) NEGATIVE (NEGATIVE) mg/dL Urine Ketones NEGATIVE (NEGATIVE) mg/dL Urine Occult Blood SMALL H (NEGATIVE) Urine Nitrite NEGATIVE (NEGATIVE) Urine Bilirubin NEGATIVE (NEGATIVE) Urine Urobilinogen 0.2 (<2.0) EU/dL Ur Leukocyte Esterase MODERATE (NEGATIVE) Urine RBC 0-2 (0-2/HPF) Urine WBC 20-30 (0-5/HPF) Ur Epithelial Cells MODERATE (NONE-FEW) Amorphous Sediment MODERATE (NEGATIVE) Urine Bacteria 1+ H (NEGATIVE) Urine Mucus LIGHT (NONE-MOD) Meds: Medications Generic Name Dose Route Start Last Admin Trade Name Freq PRN Reason Stop Dose Admin Ceftriaxone Sodium/Dextrose 1 50 mls @ 100 mls/hr 09/18/17 16:27 gm/ Premix IV 09/18/17 16:56 ONETIME ONE Departure - Departure Time of Disposition: 16:54 Disposition: Home, Self-Care 01 Condition: Good Clinical Impression: UTI (urinary tract infection) Qualifiers: Urinary tract infection type: site unspecified Hematuria presence: without hematuria Qualified Code(s): N39.0 - Urinary tract infection, site not specified - Discharge Information Prescriptions: Nitrofurantoin Macrocrystal [Macrodantin] 100 mg PO BID #14 capsule Referrals: James Foster MD [Primary Care Provider] - Forms: ED Department Discharge Additional Instructions: The following information is given to patients seen in the emergency department who are being discharged to home. This information is to outline your options for follow-up care. We provide all patients seen in our emergency department with a follow-up referral. The need for follow-up, as well as the timing and circumstances, are variable depending upon the specifics of your emergency department visit. If you don't have a primary care physician on staff, we will provide you with a referral. We always advise you to contact your personal physician following an emergency department visit to inform them of the circumstance of the visit and for follow-up with them and/or the need for any referrals to a consulting specialist. The emergency department will also refer you to a specialist when appropriate. This referral assures that you have the opportunity for follow-up care with a specialist. All of these measure are taken in an effort to provide you with optimal care, which includes your follow-up. Under all circumstances we always encourage you to contact your private physician who remains a resource for coordinating your care. When calling for follow-up care, please make the office aware that this follow-up is from your recent emergency room visit. If for any reason you are refused follow-up, please contact the [facility] at and asked to speak to the emergency department charge nurse. Nitrofurantoin as directed until gone, follow-up PMD, increase fluid intake. [facility] [address] [place] [address] - My Orders Last 24 Hours: My Active Orders 09/18/17 14:57 Head wo Cont [CT] Stat 09/18/17 15:10 EKG Documentation Completion [RC] STAT 09/18/17 16:00 UA W/MICROSCOPIC [URIN] Stat 09/18/17 16:27 cefTRIAXone [Rocephin in Dextrose,Iso-Osm 1 GM/50 ML] 1 gm Premix Bag 1 bag IV ONETIME - Assessment/Plan Last 24 Hours: My Active Orders 09/18/17 14:57 Head wo Cont [CT] Stat 09/18/17 15:10 EKG Documentation Completion [RC] STAT 09/18/17 16:00 UA W/MICROSCOPIC [URIN] Stat 09/18/17 16:27 cefTRIAXone [Rocephin in Dextrose,Iso-Osm 1 GM/50 ML] 1 gm Premix Bag 1 bag IV ONETIME
[2017-09-18] MEDS: cefTRIAXone 1 GM in Premix Bag 1 BAG IV ONE ×2 (16:48→17:02)
--- NOTE | 2017-09-19 17:44 | CT ---
EXAM DATE: 09/18/17 PATIENT'S AGE: 87 Patient: ANNA SCHULTZ Facility: [place], [place] Site . Site : 1930 Study: CT Head [id number] 3:39:38 PM Ordering Physician: Darren Mathews Final Report: INDICATIONS: Pain. TECHNIQUE: CT head without contrast. COMPARISON: CT head without contrast 03/08/2017 FINDINGS: Generalized cerebral atrophy and changes of chronic small vessel ischemic disease, as before. No mass effect or midline shift. No hydrocephalus. No CT evidence of acute hemorrhage or infarction. No abnormal extra-axial fluid collection. Intracranial atherosclerosis. Bone windows show no acute abnormality. Visualized paranasal sinuses and orbits are unremarkable. IMPRESSION: No acute intracranial abnormality. Dictated by Ian Zeng MD @ 09/18/2017 4:08:02 PM Please note that all CT scans at this facility use dose modulation, iterative reconstruction, and/or weight-based dosing when appropriate to reduce radiation dose to as low as reasonably achievable. Dictated by: Ian Zeng MD @ 09/18/2017 16:08:10 (Electronic Signature) Report Signed by Proxy. [facility]
== END 2017-09-18 17:45 | disposition home or self-care (01) ==
LOC: MW.ED 14:20
DX: N39.0 Urinary tract infection, site not specified (principal); E78.00 Pure hypercholesterolemia, unspecified; I10 Essential (primary) hypertension; E03.9 Hypothyroidism, unspecified; Z88.0 Allergy status to penicillin; Z88.2 Allergy status to sulfonamides; Z88.8 Allergy status to other drugs, medicaments and biological substances; Z79.899 Other long term (current) drug therapy
CPT/HCPCS: 36415; 70450; 80053; 81001; 85025; 93005; 96372; 99285; J0696

== ENCOUNTER 2017-09-21 13:17 | Observation (INO) | payer MEDICARE, OTHER ==
--- NOTE | 2017-09-21 13:20 | EDM.PDOC ---
ED HPI GENERAL MEDICAL PROBLEM - General Stated Complaint: POSSIBLE STROKE Time Seen by Provider: 09/21/17 13:25 Source of Information: Reports: Patient History Limitations: Reports: No Limitations - History of Present Illness INITIAL COMMENTS - FREE TEXT/NARRATIVE: History of present illness: []Patient was seen 3 days ago for the same symptoms of confusion and found to have a UTI. She was treated with antibiotics and discharged stable with improvement of her hydration. Her states that when she got home she had intermittent recurrences of confusion. He called Dr. Foster today and was told to come to the ER because she is having a stroke. Review of systems: As per history of present illness and below otherwise all systems reviewed and negative. Past medical history: As per history of present illness and as reviewed below otherwise noncontributory. Surgical history: As per history of present illness and as reviewed below otherwise noncontributory. Social history: No reported history of drug or alcohol abuse. Family history: As per history of present illness and as reviewed below otherwise noncontributory. Physical exam: General: Well developed, well nourished in NAD HEENT: Atraumatic, normocephalic, pupils reactive, negative for conjunctival pallor or scleral icterus, mucous membranes moist, throat clear, neck supple, nontender, trachea midline. Lungs: Clear to auscultation, breath sounds equal bilaterally, chest nontender. Heart: S1S2, regular, negative for clicks, rubs, or JVD. Abdomen: Soft, nondistended, nontender. Negative for masses or hepatosplenomegaly. Negative for costovertebral tenderness. Pelvis: Stable nontender. Genitourinary: Deferred. Rectal: Deferred. Extremities: Atraumatic, negative for cords or calf pain. Neurovascular unremarkable. Neuro: Awake, alert, oriented. Cranial nerves II through XII unremarkable. Cerebellum unremarkable. Motor and sensory unremarkable throughout. Exam nonfocal. Diagnostics: []CT report is negative at 13:47, CBC normal, and negative UA improving from 3 days ago for right blood cells, chemistries showed the BUN/creatinine= 21/0.5, TSH is high at 29 and free T4 is low at 0.5. Therapeutics: []Stroke workup began in the ED. Impression: []Altered mental status, hypothyroid Plan: []Until he is been notified and accepts the patient to [facility] telemetry for observation and workup Definitive disposition and diagnosis as appropriate pending reevaluation and review of above. - Related Data Allergies Allergy/AdvReac Type Severity Reaction Status Date / Time Penicillins Allergy Swelling Verified 09/21/17 13:43 procaine HCl [From Novocain] Allergy Difficulty Verified 09/21/17 13:43 Breathing Sulfa (Sulfonamide Allergy Cannot Verified 09/21/17 13:43 Antibiotics) Remember Home Meds: Home Meds Estrogens, Conjugated [Premarin Vaginal Crm] 1 applic VAG ASDIRECTED 08/30/17 [ History] Furosemide 20 mg PO DAILY 08/30/17 [History] Ondansetron [Zofran ODT] 4 mg PO TID PRN 08/30/17 [History] Patient's Own Medication [Ptom] 1 applic TOP BID 08/30/17 [History] guaiFENesin/Codeine Phosphate [Cheratussin AC Syrup] 1 tsp PO Q6H PRN 08/30/17 [ History] hydrOXYzine pamoate [Hydroxyzine Pamoate] 25 mg PO QID PRN 08/30/17 [History] predniSONE [Prednisone] 20 mg PO DAILY 08/30/17 [History] prednisoLONE acetate [Pred Forte 1% Ophth Susp] 1 drop EYELF QID 08/30/17 [ History] Gabapentin [Neurontin] 900 mg PO BID 08/31/17 [History] Levothyroxine [Synthroid] 100 mcg PO ASDIRECTED 08/31/17 [History] Doxepin [SINEquan] 10 mg PO BEDTIME #15 cap 09/01/17 [Rx] Nitrofurantoin Macrocrystal [Macrodantin] 100 mg PO BID #14 capsule 09/18/17 [Rx ] Ascorbic Acid [C-1000] 1,000 mg PO DAILY 09/21/17 [History] Aspirin [Adult Low Dose Aspirin EC] 81 mg PO DAILY 09/21/17 [History] Baclofen 5 mg PO TID 09/21/17 [History] Calcium Citrate 400 mg PO BID 09/21/17 [History] Cholecalciferol (Vitamin D3) [Vitamin D3] 2,000 units PO DAILY 09/21/17 [History ] Denosumab [Prolia] 60 mg SQ ASDIRECTED 09/21/17 [History] Latanoprost/Pf [Latanoprost 0.005% Eye Drop] 1 drop EYERT BEDTIME 09/21/17 [ History] Mineral Oil/Petrolatum,White [Refresh P.M.] 1 applic EYEBOTH ASDIRECTED PRN [History] Multivitamin [Daily Multiple Vitamin] 1 tab PO DAILY 09/21/17 [History] PEG 400/Hypromellose/Glycerin [Artificial Tears Drops] 1 drop EYEBOTH DAILY PRN 09/21/17 [History] amLODIPine [Norvasc] 2.5 mg PO DAILY 09/21/17 [History] atorvaSTATin [Lipitor] 40 mg PO DAILY 09/21/17 [History] Past Medical History HEENT History: Reports: Impaired Vision Cardiovascular History: Reports: High Cholesterol, Hypertension Respiratory History: Reports: COPD Gastrointestinal History: Reports: Diverticulosis Genitourinary History: Reports: UTI, Recurrent [employer] History: Reports: None Musculoskeletal History: Reports: Back Pain, Chronic, Fracture, Other (See Below ) Other Musculoskeletal History: ankle fx. 2016; humerus fx. 2017. sciatica Neurological History: Reports: Other (See Below) Other Neuro History: facial nerve pain Psychiatric History: Reports: None Endocrine/Metabolic History: Reports: Hypothyroidism Hematologic History: Reports: None Immunologic History: Reports: None Oncologic (Cancer) History: Reports: None Dermatologic History: Reports: None - Infectious Disease History Infectious Disease History: Reports: None - Past Surgical History Head Surgeries/Procedures: Reports: None HEENT Surgical History: Reports: Other (See Below) Other HEENT Surgeries/Procedures: cornea transplant 5 years ago; eye infection in left eye which she is being seen by eye doctor for; multiple eye surgeries Cardiovascular Surgical History: Reports: None Respiratory Surgical History: Reports: None GI Surgical History: Reports: Appendectomy, Colonoscopy, EGD Female Surgical History: Reports: None Endocrine Surgical History: Reports: None Neurological Surgical History: Reports: None Musculoskeletal Surgical History: Reports: Other (See Below) Social & Family History - Family History Family Medical History: Noncontributory - Caffeine Use Caffeine Use: Reports: Coffee ED ROS GENERAL - Review of Systems Review Of Systems: ROS reveals no pertinent complaints other than HPI. ED EXAM, NEURO - Physical Exam Exam: See Below (See history of present illness) Course - Vital Signs Last Recorded V/S: Last Vital Signs Temp 98.7 F 09/21/17 15:43 Pulse 67 09/21/17 15:43 Resp 16 09/21/17 15:43 BP 154/80 H 09/21/17 15:43 Pulse Ox 96 09/21/17 15:43 - Orders/Labs/Meds Orders: Active Orders 24 hr Category Date Time Status Patient Status [ADT] Stat ADT 09/21/17 13:54 Active Assess Neurological Status [RC] Q4H Care 09/21/17 13:34 Active Height and Weight [RC] UPON Care 09/21/17 13:34 Active Stroke Education, General [RC] Click to Edit Care 09/21/17 13:34 Active Sodium Chloride 0.9% [Saline Flush] Med 09/21/17 13:21 Active 10 ml FLUSH ASDIRECTED PRN Sodium Chloride 0.9% [Saline Flush] Med 09/21/17 13:21 Active 2.5 ml FLUSH ASDIRECTED PRN Saline Lock Insert [OM.PC] Stat Oth 09/21/17 13:21 Ordered Medication Orders Acetaminophen (Tylenol) 650 mg PO Q4H PRN PRN Reason: Pain Amlodipine Besylate (Norvasc) 2.5 mg PO DAILY [facility] Artificial Tears (Refresh Plus 0.5%) 1 each EYEBOTH DAILY PRN PRN Reason: Dry Eyes Ascorbic Acid (Vitamin C) 1,000 mg PO DAILY [facility] Aspirin (Halfprin) 81 mg PO DAILY [facility] Atorvastatin Calcium (Lipitor) 40 mg PO DAILY [facility] Calcium Carbonate/Glycine (Tums) 500 mg PO BID [facility] Cholecalciferol (Vitamin D3) 2,000 units PO DAILY [facility]IG[facility] Doxepin HCl (Sinequan) 10 mg PO BEDTIME [facility] Furosemide (Lasix) 20 mg PO DAILY [facility] Gabapentin (Neurontin) 900 mg PO BID [facility] Heparin Sodium (Porcine) (Heparin Sodium) 5,000 units SUBCUT Q12H RIGOBERTO Last Admin: 09/21/17 16:02 Dose: 5,000 units Sodium Chloride (Normal Saline) 1,000 mls @ 50 mls/hr IV ASDIRECTED RIGOBERTO Last Admin: 09/21/17 15:55 Dose: 50 mls/hr Ceftriaxone Sodium/Dextrose 1 (gm/ Premix) 50 mls @ 100 mls/hr IV Q24H RIGOBERTO Last Admin: 09/21/17 15:56 Dose: 100 mls/hr Latanoprost (Xalatan 0.005% Ophth Soln) 0 ml EYERT BEDTIME [facility] Levothyroxine Sodium (Synthroid) 125 mcg PO DAILY@0700 [facility] Mineral Oil/White Petrolatum (Lacri-Lube S.O.P Oint) 1 gm EYEBOTH ASDIRECTED PRN PRN Reason: Dry Eyes Multivitamins/Minerals/Vitamin C (Tab-A-Hugh) 1 tab PO DAILY [facility] Ondansetron HCl (Zofran) 4 mg IVPUSH Q4H PRN PRN Reason: Nausea Prednisolone Acetate (Pred Forte 1% Ophth Susp) 0 ml EYELF QID [facility]IG[facility] Prednisolone Acetate (Pred Forte 1% Ophth Susp) 0 ml EYELF QID [facility] Prednisone (Prednisone) 20 mg PO DAILY [facility] Sodium Chloride (Saline Flush) 10 ml FLUSH ASDIRECTED PRN PRN Reason: Keep Vein Open Last Admin: 09/21/17 13:54 Dose: 10 ml Sodium Chloride (Saline Flush) 2.5 ml FLUSH ASDIRECTED PRN PRN Reason: Keep Vein Open Last Admin: 09/21/17 13:54 Dose: 2.5 ml Meds: Medications Generic Name Dose Route Start Last Admin Trade Name Freq PRN Reason Stop Dose Admin Acetaminophen 650 mg 09/21/17 15:06 Tylenol PO Q4H PRN Pain Amlodipine Besylate 2.5 mg 09/22/17 09:00 Norvasc PO DAILY [facility] Artificial Tears 1 each 09/21/17 16:12 Refresh Plus 0.5% EYEBOTH DAILY PRN Dry Eyes Ascorbic Acid 1,000 mg 09/22/17 09:00 Vitamin C PO DAILY [facility] Aspirin 81 mg 09/22/17 09:00 Halfprin PO DAILY [facility] Atorvastatin Calcium 40 mg 09/22/17 09:00 Lipitor PO DAILY [facility] Calcium Carbonate/Glycine 500 mg 09/21/17 21:00 Tums PO BID [facility] Cholecalciferol 2,000 units 09/22/17 09:00 Vitamin D3 PO DAILY [facility] Doxepin HCl 10 mg 09/21/17 21:00 Sinequan PO BEDTIME [facility] Furosemide 20 mg 09/22/17 09:00 Lasix PO DAILY [facility] Gabapentin 900 mg 09/21/17 21:00 Neurontin PO BID [facility] Heparin Sodium (Porcine) 5,000 units 09/21/17 15:15 09/21/17 16:02 Heparin Sodium SUBCUT 5,000 units Q12H RIGOBERTO Administration Sodium Chloride 1,000 mls @ 50 mls/hr 09/21/17 15:15 09/21/17 15:55 Normal Saline IV 50 mls/hr ASDIRECTED RIGOBERTO Administration Ceftriaxone Sodium/Dextrose 1 50 mls @ 100 mls/hr 09/21/17 15:15 09/21/17 15: 56 gm/ Premix IV 100 mls/hr Q24H RIGOBERTO Administration Latanoprost 0 ml 09/21/17 21:00 Xalatan 0.005% Ophth Soln EYERT BEDTIME [facility] Levothyroxine Sodium 125 mcg 09/22/17 07:00 Synthroid PO DAILY@0700 [facility] Mineral Oil/White Petrolatum 1 gm 09/21/17 16:12 Lacri-Lube S.O.P Oint EYEBOTH ASDIRECTED PRN Dry Eyes Multivitamins/Minerals/Vitamin C 1 tab 09/22/17 09:00 Tab-A-Hugh PO DAILY [facility] Ondansetron HCl 4 mg 09/21/17 15:06 Zofran IVPUSH Q4H PRN Nausea Prednisolone Acetate 0 ml 09/21/17 18:00 Pred Forte 1% Ophth Susp EYELF QID RIGOBERTO Prednisolone Acetate 0 ml 09/21/17 18:00 Pred Forte 1% Ophth Susp EYELF QID RIGOBERTO Prednisone 20 mg 09/22/17 09:00 Prednisone PO DAILY [facility] Sodium Chloride 10 ml 09/21/17 13:21 09/21/17 13:54 Saline Flush FLUSH 10 ml ASDIRECTED PRN Administration Keep Vein Open Sodium Chloride 2.5 ml 09/21/17 13:21 09/21/17 13:54 Saline Flush FLUSH 2.5 ml ASDIRECTED PRN Administration Keep Vein Open Discontinued Medications Generic Name Dose Route Start Last Admin Trade Name Freq PRN Reason Stop Dose Admin Levothyroxine Sodium 100 mcg 09/22/17 07:00 Synthroid PO DAILY@0700 [facility] Departure - Departure Time of Disposition: 17:01 Disposition: Admitted As Inpatient 65 Condition: Fair Clinical Impression: Altered mental status, Hypothyroid - Discharge Information *PRESCRIPTION DRUG MONITORING PROGRAM REVIEWED*: Not Applicable - My Orders Last 24 Hours: My Active Orders 09/21/17 13:21 Sodium Chloride 0.9% [Saline Flush] 10 ml FLUSH ASDIRECTED PRN Sodium Chloride 0.9% [Saline Flush] 2.5 ml FLUSH ASDIRECTED PRN Saline Lock Insert [OM.PC] Stat 09/21/17 13:34 Assess Neurological Status [RC] Q4H Height and Weight [RC] UPON Stroke Education, General [RC] Click to Edit 09/21/17 13:54 Patient Status [ADT] Stat - Assessment/Plan Last 24 Hours: My Active Orders 09/21/17 13:21 Sodium Chloride 0.9% [Saline Flush] 10 ml FLUSH ASDIRECTED PRN Sodium Chloride 0.9% [Saline Flush] 2.5 ml FLUSH ASDIRECTED PRN Saline Lock Insert [OM.PC] Stat 09/21/17 13:34 Assess Neurological Status [RC] Q4H Height and Weight [RC] UPON Stroke Education, General [RC] Click to Edit 09/21/17 13:54 Patient Status [ADT] Stat
[2017-09-21] MEDS ORDERED: Sodium Chloride 0.9% 2.5 ML Syringe FLUSH PRN (13:21)
[2017-09-21] MEDS ORDERED: Sodium Chloride 0.9% 10 ML Syringe FLUSH PRN (13:21)
--- NOTE | 2017-09-21 13:52 | CT ---
EXAMINATION: Non contrast CT head. Coronal and sagittal reformats. HISTORY: Stroke FINDINGS: No evidence of intra or extra axial hemorrhage, mass, midline shift, hydrocephalus or edema. There i s moderate generalized atrophy and periventricular and subcortical white matter hypodensities. No hypoattenuation changes in the major vascular territories to suggest acute infarct. No abnormal intracranial calcifications are detected. No evidence of substantial vascular calcificat ions. Mild mucosal thickening noted within the paranasal sinuses. Orbits and globes appear symmetric. Masto id air cells are clear. Pituitary fossa appears unremarkable. Advanced degenerative changes within the right TMJ. Calvarium is intact. No evidence of skull fracture. IMPRESSION: 1. No acute intracranial findings. 2. Moderate generalized atrophy and small vessel ischemic changes. Above findings called to ER at 1:48 pm.
[2017-09-21 14:39] LABS: CHLORIDE,CL 105 mmol/L (98-107); SODIUM,NA 142 mmol/L (136-145)
[2017-09-21] MEDS ORDERED: Ondansetron 4 MG/2 ML SDV IVPUSH PRN (15:06)
[2017-09-21] MEDS ORDERED: Acetaminophen 325 MG Tab PO PRN (15:06)
[2017-09-21] MEDS ORDERED: cefTRIAXone 1 GM in Premix Bag 1 BAG IV SCH (15:15)
[2017-09-21] MEDS ORDERED: Sodium Chloride 0.9% 1,000 ML IV SCH (15:15)
--- NOTE | 2017-09-21 15:31 | PCM.HP ---
H&P History of Present Illness - General Date of Service: 09/21/17 Admit Problem/Dx: Admission Diagnosis/Problem Admission Diagnosis/Problem Altered mental status Source of Information: Patient, Family ( at bedside) History Limitations: Reports: Altered Mental Status - History of Present Illness Initial Comments - Free Text/Narative: This 87 year old female with pmh of HTN, HLD, hypothyroidism, and recurrently UTIs presented to the ED today with concerns of intermittent confusion. Her gives much of the history. He reports he brought her to the ED on Tuesday with similar complaints. He reports this confusion comes and goes and she has most trouble with memory or finding words to finish her sentence. In the ED on Tuesday they diagnosed a UTI and discharged her home with Macrobid. Head CT was obtained and found to be negative. He reports the confusion continued to wax and wane and again continued today which continued to concern him. states he called Kristin, their PCP and they were instructed to come back to the ED in fear of possible stroke. Lynsey is able to answer most questions appropriately, but does have trouble with finishing some sentences or not being able to think of word she needs to finish a sentence and looks to her to help finish it. She is alert and oriented x3. Denies weakness, parathesias, trouble swallowing, facial droop or weakness to one side of her body. She denies recent fevers, chills chest pain or SOB. No URI. No abdominal pain or urinary symptoms such as painful urination, frequency or urgency. She is normally up ambulating with walker with some assist within their home. They have visiting angels come to their house for assistance. The reports their daughter is coming this week and they are discussing whether they should move into [facility] living for further assistance. He also reports he has not given her medications in the last two days because he is unsure which to give her, but he has given her the Macrobid from the ED. In the ED, no leukocytosis is noted. Hgb 10.8, K+ 3.4, Na 142. BUN 28, Cr 1.5. Troponin negative. TSH noted to be 29.09. Will add T4 and B12. Previous B12 412. Head CT negative, does show moderate generalized atrophy and small vessel ischemic changes. She was recommended for observation secondary to altered mental status. PCP, Dr Foster. - Related Data Allergies/Adverse Reactions: Allergies Allergy/AdvReac Type Severity Reaction Status Date / Time Penicillins Allergy Swelling Verified 09/21/17 13:43 procaine HCl [From Novocain] Allergy Difficulty Verified 09/21/17 13:43 Breathing Sulfa (Sulfonamide Allergy Cannot Verified 09/21/17 13:43 Antibiotics) Remember Home Medications: Home Meds Estrogens, Conjugated [Premarin Vaginal Crm] 1 applic VAG ASDIRECTED 08/30/17 [ History] Furosemide 20 mg PO DAILY 08/30/17 [History] Ondansetron [Zofran ODT] 4 mg PO TID PRN 08/30/17 [History] Patient's Own Medication [Ptom] 1 applic TOP BID 08/30/17 [History] guaiFENesin/Codeine Phosphate [Cheratussin AC Syrup] 1 tsp PO Q6H PRN 08/30/17 [ History] hydrOXYzine pamoate [Hydroxyzine Pamoate] 25 mg PO QID PRN 08/30/17 [History] predniSONE [Prednisone] 20 mg PO DAILY 08/30/17 [History] prednisoLONE acetate [Pred Forte 1% Ophth Susp] 1 drop EYELF QID 08/30/17 [ History] Gabapentin [Neurontin] 900 mg PO BID 08/31/17 [History] Levothyroxine [Synthroid] 100 mcg PO ASDIRECTED 08/31/17 [History] Doxepin [SINEquan] 10 mg PO BEDTIME #15 cap 09/01/17 [Rx] Nitrofurantoin Macrocrystal [Macrodantin] 100 mg PO BID #14 capsule 09/18/17 [Rx ] Ascorbic Acid [C-1000] 1,000 mg PO DAILY 09/21/17 [History] Aspirin [Adult Low Dose Aspirin EC] 81 mg PO DAILY 09/21/17 [History] Baclofen 5 mg PO TID 09/21/17 [History] Calcium Citrate 400 mg PO BID 09/21/17 [History] Cholecalciferol (Vitamin D3) [Vitamin D3] 2,000 units PO DAILY 09/21/17 [History ] Denosumab [Prolia] 60 mg SQ ASDIRECTED 09/21/17 [History] Latanoprost/Pf [Latanoprost 0.005% Eye Drop] 1 drop EYERT BEDTIME 09/21/17 [ History] Mineral Oil/Petrolatum,White [Refresh P.M.] 1 applic EYEBOTH ASDIRECTED PRN [History] Multivitamin [Daily Multiple Vitamin] 1 tab PO DAILY 09/21/17 [History] PEG 400/Hypromellose/Glycerin [Artificial Tears Drops] 1 drop EYEBOTH DAILY PRN 09/21/17 [History] amLODIPine [Norvasc] 2.5 mg PO DAILY 09/21/17 [History] atorvaSTATin [Lipitor] 40 mg PO DAILY 09/21/17 [History] Past Medical History HEENT History: Reports: Impaired Vision Cardiovascular History: Reports: High Cholesterol, Hypertension Respiratory History: Reports: COPD Gastrointestinal History: Reports: Diverticulosis Genitourinary History: Reports: UTI, Recurrent PU[employer]ICIAN History: Reports: None Musculoskeletal History: Reports: Back Pain, Chronic, Fracture, Other (See Below ) Other Musculoskeletal History: ankle fx. 2016; humerus fx. 2017. sciatica Neurological History: Reports: Other (See Below) Other Neuro History: facial nerve pain Psychiatric History: Reports: None Endocrine/Metabolic History: Reports: Hypothyroidism Hematologic History: Reports: None Immunologic History: Reports: None Oncologic (Cancer) History: Reports: None Dermatologic History: Reports: None - Infectious Disease History Infectious Disease History: Reports: None - Past Surgical History Head Surgeries/Procedures: Reports: None HEENT Surgical History: Reports: Other (See Below) Other HEENT Surgeries/Procedures: cornea transplant 5 years ago; eye infection in left eye which she is being seen by eye doctor for; multiple eye surgeries Cardiovascular Surgical History: Reports: None Respiratory Surgical History: Reports: None GI Surgical History: Reports: Appendectomy, Colonoscopy, EGD Female Surgical History: Reports: None Endocrine Surgical History: Reports: None Neurological Surgical History: Reports: None Musculoskeletal Surgical History: Reports: Other (See Below) Social & Family History - Family History Family Medical History: Noncontributory - Tobacco Use Smoking Status *Q: Never Smoker - Caffeine Use Caffeine Use: Reports: Coffee - Recreational Drug Use Recreational Drug Use: No H&P Review of Systems - Review of Systems: Review Of Systems: See Below General: Reports: No Symptoms. Denies: Fever, Chills, Malaise HEENT: Reports: No Symptoms. Denies: Headaches, Sinus Congestion, Vertigo Pulmonary: Reports: No Symptoms. Denies: Shortness of Breath Cardiovascular: Reports: No Symptoms. Denies: Chest Pain, Palpitations, Edema, Lightheadedness Gastrointestinal: Reports: No Symptoms. Denies: Abdominal Pain, Black Stool, Bloody Stool, Decreased Appetite, Nausea, Vomiting Genitourinary: Reports: No Symptoms. Denies: Dysuria, Frequency, Burning Musculoskeletal: Reports: No Symptoms Skin: Reports: No Symptoms Psychiatric: Reports: Confusion Neurological: Reports: Confusion Hematologic/Lymphatic: Reports: No Symptoms Immunologic: Reports: No Symptoms Exam - Exam Exam: See Below - Vital Signs Vital Signs: Last Vital Signs Temp 98 F 09/21/17 14:21 Pulse 95 09/21/17 14:21 Resp 16 09/21/17 14:21 BP 153/59 H 09/21/17 14:21 Pulse Ox 93 L 09/21/17 14:21 Weight: 56.79 kg - Exam Quality Assessment: DVT Prophylaxis. No: Supplemental Oxygen General: Alert, Oriented, Cooperative HEENT: Conjunctiva Clear. 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 No: Systolic Murmur GI/Abdominal Exam: Normal Bowel Sounds, Soft, Non-Tender Back Exam: Normal Inspection, Full Range of Motion Extremities: Normal Inspection, Normal Range of Motion, Non-Tender Neuro Extensive - Mental Status: Alert, Oriented x3, Normal Mood/Affect, Slow Response to Commands. No: Memory Intact Neuro Extensive - Motor, Sensory, Reflexes: CN II-XII Intact, Normal Gait, Normal Reflexes, Other (has ). No: Tongue Deviation (L), Tongue Deviation (R), Facial palsy (L), Facial Palsy (R) Psychiatric: Alert, Normal Affect, Normal Mood - Patient Data Lab Results Last 24 hrs: Laboratory Results - last 24 hr 09/21/17 09/21/17 09/21/17 Range/Units 14:00 14:00 14:00 WBC 5.98 (4.0-11.0) K/uL RBC 3.24 L (4.30-5.90) M/uL Hgb 10.8 L (12.0-16.0) g/dL Hct 32.6 L (36.0-46.0) % MCV 100.6 H (80.0-98.0) fL MCH 33.3 H (27.0-32.0) pg MCHC 33.1 (31.0-37.0) g/dL RDW Std Deviation 49.9 (28.0-62.0) fl RDW Coeff of Josselyn 14 (11.0-15.0) % Plt Count 184 (150-400) K/uL MPV 10.20 (7.40-12.00) fL Neut % (Auto) 66.5 (48.0-80.0) % Lymph % (Auto) 16.7 (16.0-40.0) % Lake % (Auto) 12.2 (0.0-15.0) % Eos % (Auto) 4.3 (0.0-7.0) % Baso % (Auto) 0.3 (0.0-1.5) % Neut # (Auto) 4.0 (1.4-5.7) K/uL Lymph # (Auto) 1.0 (0.6-2.4) K/uL Lake # (Auto) 0.7 (0.0-0.8) K/uL Eos # (Auto) 0.3 (0.0-0.7) K/uL Baso # (Auto) 0.0 (0.0-0.1) K/uL Nucleated RBC % 0.0 /100WBC Nucleated RBCs # 0 K/uL INR 0.94 APTT 26.2 (18.6-31.3) SEC Sodium 142 (136-145) mmol/L Potassium 3.4 L (3.5-5.1) mmol/L Chloride 105 (98-107) mmol/L Carbon Dioxide 29.2 (21.0-32.0) mmol/L BUN 28 H (7.0-18.0) mg/dL Creatinine 1.5 H (0.6-1.0) mg/dL Est Cr Clr Drug Dosing 20.50 mL/min Estimated GFR (MDRD) 32.8 ml/min Glucose 110 H (74-106) mg/dL Calcium 9.3 (8.5-10.1) mg/dL Total Bilirubin 0.6 (0.2-1.0) mg/dL AST 23 (15-37) IU/L ALT 19 (14-63) IU/L Alkaline Phosphatase 57 (46-116) U/L Troponin I < 0.050 (0.000-0.056) ng/mL Total Protein 6.5 (6.4-8.2) g/dL Albumin 3.2 L (3.4-5.0) g/dL Globulin 3.3 (2.0-3.5) g/dL Albumin/Globulin Ratio 1.0 L (1.3-2.8) TSH 3rd Generation (0.36-3.74) uIU/mL 09/21/17 Range/Units 14:00 WBC (4.0-11.0) K/uL RBC (4.30-5.90) M/uL Hgb (12.0-16.0) g/dL Hct (36.0-46.0) % MCV (80.0-98.0) fL MCH (27.0-32.0) pg MCHC (31.0-37.0) g/dL RDW Std Deviation (28.0-62.0) fl RDW Coeff of Josselyn (11.0-15.0) % Plt Count (150-400) K/uL MPV (7.40-12.00) fL Neut % (Auto) (48.0-80.0) % Lymph % (Auto) (16.0-40.0) % Lake % (Auto) (0.0-15.0) % Eos % (Auto) (0.0-7.0) % Baso % (Auto) (0.0-1.5) % Neut # (Auto) (1.4-5.7) K/uL Lymph # (Auto) (0.6-2.4) K/uL Lake # (Auto) (0.0-0.8) K/uL Eos # (Auto) (0.0-0.7) K/uL Baso # (Auto) (0.0-0.1) K/uL Nucleated RBC % /100WBC Nucleated RBCs # K/uL INR APTT (18.6-31.3) SEC Sodium (136-145) mmol/L Potassium (3.5-5.1) mmol/L Chloride (98-107) mmol/L Carbon Dioxide (21.0-32.0) mmol/L BUN (7.0-18.0) mg/dL Creatinine (0.6-1.0) mg/dL Est Cr Clr Drug Dosing mL/min Estimated GFR (MDRD) ml/min Glucose (74-106) mg/dL Calcium (8.5-10.1) mg/dL Total Bilirubin (0.2-1.0) mg/dL AST (15-37) IU/L ALT (14-63) IU/L Alkaline Phosphatase (46-116) U/L Troponin I (0.000-0.056) ng/mL Total Protein (6.4-8.2) g/dL Albumin (3.4-5.0) g/dL Globulin (2.0-3.5) g/dL Albumin/Globulin Ratio (1.3-2.8) TSH 3rd Generation 29.09 H (0.36-3.74) uIU/mL Result Diagrams: 09/21/17 14:00 09/21/17 14:00 EKG INTERPRETATION EKG Date: 09/21/17 Rhythm: NSR Rate (Beats/Min): 80 P-Wave: Present QRS: Normal ST-T: Normal QT: Normal - Problem List (1) Confusion SNOMED Code(s): 417560218 ICD Code: R41.0 - DISORIENTATION, UNSPECIFIED Status: Acute Current Visit : Yes (2) UTI (urinary tract infection) SNOMED Code(s): 18370571 ICD Code: N39.0 - URINARY TRACT INFECTION, SITE NOT SPECIFIED Status: Acute Current Visit: No Qualifiers: Urinary tract infection type: site unspecified Hematuria presence: without hematuria Qualified Code(s): N39.0 - Urinary tract infection, site not specified (3) HTN (hypertension) SNOMED Code(s): 23055993 ICD Code: I10 - ESSENTIAL (PRIMARY) HYPERTENSION Status: Acute Current Visit: Yes Qualifiers: Hypertension type: essential hypertension Qualified Code(s): I10 - Essential (primary) hypertension (4) HLD (hyperlipidemia) SNOMED Code(s): 06119205 ICD Code: E78.5 - HYPERLIPIDEMIA, UNSPECIFIED Status: Chronic Current Visit: Yes (5) Hypothyroidism SNOMED Code(s): 05519716 ICD Code: E03.9 - HYPOTHYROIDISM, UNSPECIFIED Status: Chronic Current Visit: Yes Problem List Initiated/Reviewed/Updated: Yes Orders Last 24hrs: Active Orders 24 hr Category Date Time Status Patient Status [ADT] Stat ADT 09/21/17 13:54 Active Assess Neurological Status [RC] ASDIRECTED Care 09/21/17 13:34 Active Bedrest [RC] ASDIRECTED Care 09/21/17 13:34 Active Cardiac Monitoring [RC] . DIRECTED Care 09/21/17 13:34 Active Height and Weight [RC] UPON Care 09/21/17 13:34 Active Intake and Output [RC] QSHIFT Care 09/21/17 15:07 Ordered NIH Stroke Scale [RC] ASDIRECTED Care 09/21/17 13:34 Active Nursing Bedside Swallow Screen [RC] ASDIRECTED Care 09/21/17 13:34 Active Oxygen Therapy [RC] PRN Care 09/21/17 15:07 Ordered Stroke Education, General [RC] Click to Edit Care 09/21/17 13:34 Active Telemetry Monitoring [Cardiac Monitoring] [RC] . Care 09/21/17 15:11 Ordered DIRECTED Up With Assistance [RC] ASDIRECTED Care 09/21/17 15:06 Ordered VTE/DVT Education [RC] PER UNIT ROUTINE Care 09/21/17 15:07 Ordered Vital Signs [RC] Q4H Care 09/21/17 15:07 Ordered Regular Diet [DIET] Diet 09/21/17 Dinner Ordered BASIC METABOLIC PANEL,BMP [CHEM] AM Lab 09/22/17 05:11 Ordered CBC WITH AUTO DIFF [HEME] AM Lab 09/22/17 05:11 Ordered CULTURE URINE [RM] Stat Lab 09/21/17 14:15 Ordered T4 FREE [CHEM] Routine Lab 09/21/17 15:06 Ordered UA W/MICROSCOPIC [URIN] Stat Lab 09/21/17 14:15 Ordered Acetaminophen [Tylenol] Med 09/21/17 15:06 Ordered 650 mg PO Q4H PRN Heparin Sodium Med 09/21/17 15:15 Ordered 5,000 units SUBCUT Q12H Ondansetron [Zofran] Med 09/21/17 15:06 Ordered 4 mg IVPUSH Q4H PRN Sodium Chloride 0.9% [Normal Saline] 1,000 ml Med 09/21/17 15:15 Ordered IV ASDIRECTED Sodium Chloride 0.9% [Saline Flush] Med 09/21/17 13:21 Active 10 ml FLUSH ASDIRECTED PRN Sodium Chloride 0.9% [Saline Flush] Med 09/21/17 13:21 Active 2.5 ml FLUSH ASDIRECTED PRN cefTRIAXone [Rocephin in Dextrose,Iso-Osm 1 GM/50 ML] 1 Med 09/21/17 15:15 Ordered gm Premix Bag 1 bag IV Q24H Saline Lock Insert [OM.PC] Stat Oth 09/21/17 13:21 Ordered Resuscitation Status Routine Resus Stat 09/21/17 15:06 Ordered Medication Orders Acetaminophen (Tylenol) 650 mg PO Q4H PRN PRN Reason: Pain Heparin Sodium (Porcine) (Heparin Sodium) 5,000 units SUBCUT Q12H RIGOBERTO Sodium Chloride (Normal Saline) 1,000 mls @ 50 mls/hr IV ASDIRECTED RIGOBERTO Ceftriaxone Sodium/Dextrose 1 (gm/ Premix) 50 mls @ 100 mls/hr IV Q24H RIGOBERTO Ondansetron HCl (Zofran) 4 mg IVPUSH Q4H PRN PRN Reason: Nausea Sodium Chloride (Saline Flush) 10 ml FLUSH ASDIRECTED PRN PRN Reason: Keep Vein Open Last Admin: 09/21/17 13:54 Dose: 10 ml Sodium Chloride (Saline Flush) 2.5 ml FLUSH ASDIRECTED PRN PRN Reason: Keep Vein Open Last Admin: 09/21/17 13:54 Dose: 2.5 ml Assessment/Plan Comment:: This 87 margaret old female admitted with AMS, confusion and UTI. 1. AMS/confusion: Stroke is unlikely. No focal neurological deficits. Like a result from UTI and Macrobid. Will discontinue Macrobid. Monitor closely. Neuro checks Q4hr. B 12 pending. Reviewed [facility] records, on September 15, two days prior to confusion starting she was started on Baclofen secondary to increase in sciatica pain. She had been taking this per report of and then on Tuesday started having this confusion. Spoke with Dr Foster, this may also be contributing to confusion as well. 2. UTI: Will stop Macrobid. Start Rocephin. Obtain new UA and UC. Gentle hydration overnight, NS 50 ml/hr 3. HTN: Stable. Continue home medications. 4. HLD: Stable. Continue statin and ASA. 5. Hypothyroidism: TSH 29.09. T4 0.56. Will increase Levothyroxine to 125 mcg daily, notified Dr Foster of elevated TSH. VTE prophylaxis: Heparin q12 hr. Dispo: 1-2 days pending improvement.
[2017-09-21] MEDS: Heparin Sodium 5,000 Units/ML Vial SUBCUT SCH (16:02)
[2017-09-21] MEDS ORDERED: Carboxymethylcellulose Sodium 0.5% Ophth Soln 0.4 ML UD Box of 30 EYEBOTH PRN (16:12)
[2017-09-21] MEDS ORDERED: Mineral Oil/Petrolatum Ophth Oint 3.5 GM Tube EYEBOTH PRN (16:12)
[2017-09-21] MEDS: prednisoLONE Acetate 1% Ophth Susp 5 ML Bottle EYELF SCH ×2 (18:36→18:37)
[2017-09-21] MEDS ORDERED: Doxepin 10 MG Cap PO SCH (21:00)
[2017-09-21] MEDS ORDERED: Latanoprost 0.005% Ophth Soln 2.5 ML Bottle EYERT SCH (21:00)
[2017-09-21] MEDS: Gabapentin 300 MG Cap PO SCH (21:26)
[2017-09-21] MEDS: Calcium Carbonate 500 MG Tab.Chew PO SCH (21:26)
[2017-09-21] MEDS ORDERED: hydrALAZINE 20 MG/ML SDV IVPUSH PRN (22:41)
[2017-09-21] MEDS ORDERED: Latanoprost 0.005% Ophth Soln 2.5 ML Bottle EYELF SCH (22:45)
[2017-09-22] MEDS: prednisoLONE Acetate 1% Ophth Susp 5 ML Bottle EYELF SCH ×3 (01:00→06:20)
[2017-09-22] MEDS: Heparin Sodium 5,000 Units/ML Vial SUBCUT SCH (04:16)
[2017-09-22] MEDS ORDERED: Levothyroxine 100 MCG Tab PO SCH ×2 (07:00)
[2017-09-22 08:43] VITALS: BP 116/62
[2017-09-22] MEDS: Potassium Chloride 20 MEQ Tab.ER PO SCH ×2 (08:44→11:08)
[2017-09-22] MEDS: Calcium Carbonate 500 MG Tab.Chew PO SCH (08:45)
[2017-09-22] MEDS: Gabapentin 300 MG Cap PO SCH (08:45)
[2017-09-22] MEDS ORDERED: Furosemide 20 MG Tab PO SCH (09:00)
[2017-09-22] MEDS ORDERED: Multivitamin Tab PO SCH (09:00)
[2017-09-22] MEDS ORDERED: Aspirin 81 MG Tab.EC PO SCH (09:00)
[2017-09-22] MEDS ORDERED: amLODIPine 2.5 MG Tab PO SCH (09:00)
[2017-09-22] MEDS ORDERED: predniSONE 20 MG Tab PO SCH (09:00)
[2017-09-22] MEDS ORDERED: Cholecalciferol (Vitamin D3) 1,000 Unit Tab PO SCH (09:00)
[2017-09-22] MEDS ORDERED: atorvaSTATin 40 MG Tab PO SCH (09:00)
[2017-09-22] MEDS ORDERED: Ascorbic Acid 500 MG Tab PO SCH (09:00)
[2017-09-22] MEDS ORDERED: predniSONE 20 MG Tab PO ONE (09:04)
[2017-09-22] MEDS ORDERED: Cephalexin 250 MG Cap PO ONE (09:50)
--- NOTE | 2017-09-22 09:51 | PCM.DCSUM1 ---
Discharge Summary - Hospital Course Brief History: This 87 year old female with pmh of HTN, HLD, hypothyroidism, and recurrently UTIs presented to the ED today with concerns of intermittent confusion. Her gives much of the history. He reports he brought her to the ED on Tuesday with similar complaints. He reports this confusion comes and goes and she has most trouble with memory or finding words to finish her sentence. In the ED on Tuesday they diagnosed a UTI and discharged her home with Macrobid. Head CT was obtained and found to be negative. He reports the confusion continued to wax and wane and again continued today which continued to concern him. states he called Kristin, their PCP and they were instructed to come back to the ED in fear of possible stroke. Lynsey is able to answer most questions appropriately, but does have trouble with finishing some sentences or not being able to think of word she needs to finish a sentence and looks to her to help finish it. She is alert and oriented x3. Denies weakness, parathesias, trouble swallowing, facial droop or weakness to one side of her body. She denies recent fevers, chills chest pain or SOB. No URI. No abdominal pain or urinary symptoms such as painful urination, frequency or urgency. She is normally up ambulating with walker with some assist within their home. They have visiting angels come to their house for assistance. The reports their daughter is coming this week and they are discussing whether they should move into [facility] assisted living for further assistance. He also reports he has not given her medications in the last two days because he is unsure which to give her, but he has given her the Macrobid from the ED. In the ED, no leukocytosis is noted. Hgb 10.8, K+ 3.4, Na 142. BUN 28, Cr 1.5. Troponin negative. TSH noted to be 29.09. Will add T4 and B12. Previous B12 412. Head CT negative, does show moderate generalized atrophy and small vessel ischemic changes. She was recommended for observation secondary to altered mental status. PCP, Dr Foster. Diagnosis: Stroke: No - Discharge Data Discharge Date: 09/22/17 Discharge Disposition: Home, Self-Care 01 Condition: Good - Discharge Diagnosis/Problem(s) (1) Confusion SNOMED Code(s): 333906293 ICD Code: R41.0 - DISORIENTATION, UNSPECIFIED Status: Acute Current Visit : Yes (2) UTI (urinary tract infection) SNOMED Code(s): 99398029 ICD Code: N39.0 - URINARY TRACT INFECTION, SITE NOT SPECIFIED Status: Acute Current Visit: No Qualifiers: Urinary tract infection type: site unspecified Hematuria presence: without hematuria Qualified Code(s): N39.0 - Urinary tract infection, site not specified (3) HTN (hypertension) SNOMED Code(s): 35011782 ICD Code: I10 - ESSENTIAL (PRIMARY) HYPERTENSION Status: Acute Current Visit: Yes Qualifiers: Hypertension type: essential hypertension Qualified Code(s): I10 - Essential (primary) hypertension (4) HLD (hyperlipidemia) SNOMED Code(s): 83889952 ICD Code: E78.5 - HYPERLIPIDEMIA, UNSPECIFIED Status: Chronic Current Visit: Yes (5) Hypothyroidism SNOMED Code(s): 40433186 ICD Code: E03.9 - HYPOTHYROIDISM, UNSPECIFIED Status: Chronic Current Visit: Yes - Patient Instructions Diet: Heart Healthy Diet Activity: As Tolerated Driving: Do Not Drive Showering/Bathing: May Shower - Discharge Plan *PRESCRIPTION DRUG MONITORING PROGRAM REVIEWED*: Not Applicable *COPY OF PRESCRIPTION DRUG MONITORING REPORT IN PATIENT DAVID: Not Applicable Prescriptions/Med Rec: Cephalexin [Keflex] 250 mg PO Q12HR #12 capsule Levothyroxine 125 mcg PO ACBREAKFAST #30 tab Home Medications: Home Meds Estrogens, Conjugated [Premarin Vaginal Crm] 1 applic VAG ASDIRECTED 08/30/17 [ History] Furosemide 20 mg PO DAILY 08/30/17 [History] Ondansetron [Zofran ODT] 4 mg PO TID PRN 08/30/17 [History] Patient's Own Medication [Ptom] 1 applic TOP BID 08/30/17 [History] guaiFENesin/Codeine Phosphate [Cheratussin AC Syrup] 1 tsp PO Q6H PRN 08/30/17 [ History] hydrOXYzine pamoate [Hydroxyzine Pamoate] 25 mg PO QID PRN 08/30/17 [History] prednisoLONE acetate [Pred Forte 1% Ophth Susp] 1 drop EYELF QID 08/30/17 [ History] Gabapentin [Neurontin] 900 mg PO BID 08/31/17 [History] Doxepin [SINEquan] 10 mg PO BEDTIME #15 cap 09/01/17 [Rx] Ascorbic Acid [C-1000] 1,000 mg PO DAILY 09/21/17 [History] Aspirin [Adult Low Dose Aspirin EC] 81 mg PO DAILY 09/21/17 [History] Calcium Citrate 400 mg PO BID 09/21/17 [History] Cholecalciferol (Vitamin D3) [Vitamin D3] 2,000 units PO DAILY 09/21/17 [History ] Denosumab [Prolia] 60 mg SQ ASDIRECTED 09/21/17 [History] Latanoprost/Pf [Latanoprost 0.005% Eye Drop] 1 drop EYERT BEDTIME 09/21/17 [ History] Mineral Oil/Petrolatum,White [Refresh P.M.] 1 applic EYEBOTH ASDIRECTED PRN [History] Multivitamin [Daily Multiple Vitamin] 1 tab PO DAILY 09/21/17 [History] PEG 400/Hypromellose/Glycerin [Artificial Tears Drops] 1 drop EYEBOTH DAILY PRN 09/21/17 [History] amLODIPine [Norvasc] 2.5 mg PO DAILY 09/21/17 [History] atorvaSTATin [Lipitor] 40 mg PO DAILY 09/21/17 [History] Cephalexin [Keflex] 250 mg PO Q12HR #12 capsule 09/22/17 [Rx] Levothyroxine 125 mcg PO ACBREAKFAST #30 tab 09/22/17 [Rx] predniSONE [Prednisone] 20 mg PO DAILY #0 09/22/17 [Rx] Patient Handouts: Levothyroxine tablets, Confusion, Cephalexin tablets or capsules Referrals: Ca Cline NP [Ordering Only Provider] - 09/29/17 10:15 am - Discharge Summary/Plan Comment DC Time >30 min.: No Discharge Summary/Plan Comment: Discharge Diagnoses: Confusion-resolved UTI Hypothyroidism HTN HLD Lynsey was admitted secondary to intermittent confusion. Confusion likely multifactorial. She was recently started on Baclofen for increased L sciatica prior to confusion starting. She was then seen for confusion intially on TuesdaySeptember 18, started on macrobid for UTI. Confusion continued and PCP recommended evaluation in ED again. She was admitted yesterday treated with Rocephin for UTI and Baclofen stopped. TSH was noted to be elevated at 19.09 and T4 0.56. I spoke with PCP, Dr Foster, regarding admission. He is aware of stopping Baclofen and Macrobid. We will also increased her Levothyroxine to 125 mcg daily and to have TSH rechecked in 4-6 weeks. Today confusion is cleared. She is alert and oriented able to carry on a conversation very easily today. Paulino, her feels she is back to her baseline and is wanting to take her home today. They are working on [facility] placement as an outpatient. She will also be placed on Keflex for 6 more days for UTI. They are to return to ED or clinic if concerns should arise. Follow up with PCP is arranged for 1 week. - General Info Date of Service: 09/22/17 Admission Dx/Problem (Free Text: Admission Diagnosis/Problem Admission Diagnosis/Problem Altered mental status Subjective Update: Feeling much better today. Easily carries on conversation today with me, unlike yesterday she was unable to. She denies any pain, chest pain or SOB. No headache or visual concerns. She is eager to go home, saying Paulino her is going to be here to take her home. Functional Status: Reports: Pain Controlled, Tolerating Diet, Ambulating, Urinating - Review of Systems General: Reports: No Symptoms. Denies: Fever, Weakness, Fatigue HEENT: Reports: No Symptoms. Denies: Headaches, Sore Throat, Visual Changes Pulmonary: Reports: No Symptoms. Denies: Shortness of Breath Cardiovascular: Reports: No Symptoms. Denies: Chest Pain, Palpitations Gastrointestinal: Reports: No Symptoms. Denies: Abdominal Pain, Nausea, Vomiting Genitourinary: Reports: No Symptoms. Denies: Dysuria, Frequency, Burning Skin: Reports: No Symptoms Neurological: Reports: No Symptoms. Denies: Confusion, Headache, Paresthesia, Trouble Speaking, Change in Speech Psychiatric: Reports: No Symptoms. Denies: Confusion - Patient Data Vitals - Most Recent: Last Vital Signs Temp 97.5 F 09/22/17 08:00 Pulse 76 09/22/17 08:00 Resp 16 09/22/17 08:00 BP 116/62 09/22/17 08:00 Pulse Ox 93 L 09/22/17 08:00 Weight - Most Recent: 56.79 kg I&O - Last 24 hours: Intake & Output 09/21/17 09/22/17 09/22/17 22:59 06:59 14:59 Intake Total 120 200 809 Output Total 200 0 Balance -80 200 809 Lab Results - Last 24 hrs: Laboratory Results - last 24 hr 09/21/17 09/21/17 09/21/17 Range/Units 14:00 14:00 14:00 WBC 5.98 (4.0-11.0) K/uL RBC 3.24 L (4.30-5.90) M/uL Hgb 10.8 L (12.0-16.0) g/dL Hct 32.6 L (36.0-46.0) % MCV 100.6 H (80.0-98.0) fL MCH 33.3 H (27.0-32.0) pg MCHC 33.1 (31.0-37.0) g/dL RDW Std Deviation 49.9 (28.0-62.0) fl RDW Coeff of Josselyn 14 (11.0-15.0) % Plt Count 184 (150-400) K/uL MPV 10.20 (7.40-12.00) fL Neut % (Auto) 66.5 (48.0-80.0) % Lymph % (Auto) 16.7 (16.0-40.0) % Wilkes % (Auto) 12.2 (0.0-15.0) % Eos % (Auto) 4.3 (0.0-7.0) % Baso % (Auto) 0.3 (0.0-1.5) % Neut # (Auto) 4.0 (1.4-5.7) K/uL Lymph # (Auto) 1.0 (0.6-2.4) K/uL Wilkes # (Auto) 0.7 (0.0-0.8) K/uL Eos # (Auto) 0.3 (0.0-0.7) K/uL Baso # (Auto) 0.0 (0.0-0.1) K/uL Nucleated RBC % 0.0 /100WBC Nucleated RBCs # 0 K/uL INR 0.94 APTT 26.2 (18.6-31.3) SEC Sodium 142 (136-145) mmol/L Potassium 3.4 L (3.5-5.1) mmol/L Chloride 105 (98-107) mmol/L Carbon Dioxide 29.2 (21.0-32.0) mmol/L BUN 28 H (7.0-18.0) mg/dL Creatinine 1.5 H (0.6-1.0) mg/dL Est Cr Clr Drug Dosing 20.50 mL/min Estimated GFR (MDRD) 32.8 ml/min Glucose 110 H (74-106) mg/dL Calcium 9.3 (8.5-10.1) mg/dL Magnesium (1.8-2.4) mg/dL Total Bilirubin 0.6 (0.2-1.0) mg/dL AST 23 (15-37) IU/L ALT 19 (14-63) IU/L Alkaline Phosphatase 57 (46-116) U/L Troponin I < 0.050 (0.000-0.056) ng/mL Total Protein 6.5 (6.4-8.2) g/dL Albumin 3.2 L (3.4-5.0) g/dL Globulin 3.3 (2.0-3.5) g/dL Albumin/Globulin Ratio 1.0 L (1.3-2.8) Vitamin B12 (193-986) pg/mL Free T4 (0.76-1.46) ng/dL TSH 3rd Generation (0.36-3.74) uIU/mL Urine Color Urine Appearance Urine pH (5.0-8.0) Ur Specific [place] (1.001-1.035) Urine Protein (NEGATIVE) mg/dL Urine Glucose (UA) (NEGATIVE) mg/dL Urine Ketones (NEGATIVE) mg/dL Urine Occult Blood (NEGATIVE) Urine Nitrite (NEGATIVE) Urine Bilirubin (NEGATIVE) Urine Urobilinogen (<2.0) EU/dL Ur Leukocyte Esterase (NEGATIVE) Urine RBC (0-2/HPF) Urine WBC (0-5/HPF) Ur Epithelial Cells (NONE-FEW) Urine Bacteria (NEGATIVE) 09/21/17 09/21/17 09/21/17 Range/Units 14:00 14:06 15:30 WBC (4.0-11.0) K/uL RBC (4.30-5.90) M/uL Hgb (12.0-16.0) g/dL Hct (36.0-46.0) % MCV (80.0-98.0) fL MCH (27.0-32.0) pg MCHC (31.0-37.0) g/dL RDW Std Deviation (28.0-62.0) fl RDW Coeff of Josselyn (11.0-15.0) % Plt Count (150-400) K/uL MPV (7.40-12.00) fL Neut % (Auto) (48.0-80.0) % Lymph % (Auto) (16.0-40.0) % Wilkes % (Auto) (0.0-15.0) % Eos % (Auto) (0.0-7.0) % Baso % (Auto) (0.0-1.5) % Neut # (Auto) (1.4-5.7) K/uL Lymph # (Auto) (0.6-2.4) K/uL Wilkes # (Auto) (0.0-0.8) K/uL Eos # (Auto) (0.0-0.7) K/uL Baso # (Auto) (0.0-0.1) K/uL Nucleated RBC % /100WBC Nucleated RBCs # K/uL INR APTT (18.6-31.3) SEC Sodium (136-145) mmol/L Potassium (3.5-5.1) mmol/L Chloride (98-107) mmol/L Carbon Dioxide (21.0-32.0) mmol/L BUN (7.0-18.0) mg/dL Creatinine (0.6-1.0) mg/dL Est Cr Clr Drug Dosing mL/min Estimated GFR (MDRD) ml/min Glucose (74-106) mg/dL Calcium (8.5-10.1) mg/dL Magnesium (1.8-2.4) mg/dL Total Bilirubin (0.2-1.0) mg/dL AST (15-37) IU/L ALT (14-63) IU/L Alkaline Phosphatase (46-116) U/L Troponin I (0.000-0.056) ng/mL Total Protein (6.4-8.2) g/dL Albumin (3.4-5.0) g/dL Globulin (2.0-3.5) g/dL Albumin/Globulin Ratio (1.3-2.8) Vitamin B12 (193-986) pg/mL Free T4 0.56 L (0.76-1.46) ng/dL TSH 3rd Generation 29.09 H (0.36-3.74) uIU/mL Urine Color YELLOW Urine Appearance SLT CLOUDY Urine pH 5.5 (5.0-8.0) Ur Specific [place] 1.015 (1.001-1.035) Urine Protein NEGATIVE (NEGATIVE) mg/dL Urine Glucose (UA) NEGATIVE (NEGATIVE) mg/dL Urine Ketones NEGATIVE (NEGATIVE) mg/dL Urine Occult Blood NEGATIVE (NEGATIVE) Urine Nitrite NEGATIVE (NEGATIVE) Urine Bilirubin NEGATIVE (NEGATIVE) Urine Urobilinogen 0.2 (<2.0) EU/dL Ur Leukocyte Esterase TRACE (NEGATIVE) Urine RBC 0-1 (0-2/HPF) Urine WBC 3-4 (0-5/HPF) Ur Epithelial Cells OCCASIONAL (NONE-FEW) Urine Bacteria RARE (NEGATIVE) 09/21/17 09/22/17 09/22/17 Range/Units 15:39 06:18 06:18 WBC 4.89 (4.0-11.0) K/uL RBC 3.22 L (4.30-5.90) M/uL Hgb 10.5 L (12.0-16.0) g/dL Hct 32.5 L (36.0-46.0) % MCV 100.9 H (80.0-98.0) fL MCH 32.6 H (27.0-32.0) pg MCHC 32.3 (31.0-37.0) g/dL RDW Std Deviation 50.4 (28.0-62.0) fl RDW Coeff of Josselyn 14 (11.0-15.0) % Plt Count 198 (150-400) K/uL MPV 10.40 (7.40-12.00) fL Neut % (Auto) 57.1 (48.0-80.0) % Lymph % (Auto) 25.6 (16.0-40.0) % Wilkes % (Auto) 11.2 (0.0-15.0) % Eos % (Auto) 5.5 (0.0-7.0) % Baso % (Auto) 0.6 (0.0-1.5) % Neut # (Auto) 2.8 (1.4-5.7) K/uL Lymph # (Auto) 1.3 (0.6-2.4) K/uL Wilkes # (Auto) 0.6 (0.0-0.8) K/uL Eos # (Auto) 0.3 (0.0-0.7) K/uL Baso # (Auto) 0.0 (0.0-0.1) K/uL Nucleated RBC % 0.0 /100WBC Nucleated RBCs # 0 K/uL INR APTT (18.6-31.3) SEC Sodium 143 (136-145) mmol/L Potassium 3.1 L (3.5-5.1) mmol/L Chloride 106 (98-107) mmol/L Carbon Dioxide 30.4 (21.0-32.0) mmol/L BUN 25 H (7.0-18.0) mg/dL Creatinine 1.4 H (0.6-1.0) mg/dL Est Cr Clr Drug Dosing 21.97 mL/min Estimated GFR (MDRD) 35.5 ml/min Glucose 90 (74-106) mg/dL Calcium 9.1 (8.5-10.1) mg/dL Magnesium (1.8-2.4) mg/dL Total Bilirubin (0.2-1.0) mg/dL AST (15-37) IU/L ALT (14-63) IU/L Alkaline Phosphatase (46-116) U/L Troponin I (0.000-0.056) ng/mL Total Protein (6.4-8.2) g/dL Albumin (3.4-5.0) g/dL Globulin (2.0-3.5) g/dL Albumin/Globulin Ratio (1.3-2.8) Vitamin B12 554 (193-986) pg/mL Free T4 (0.76-1.46) ng/dL TSH 3rd Generation (0.36-3.74) uIU/mL Urine Color Urine Appearance Urine pH (5.0-8.0) Ur Specific [place] (1.001-1.035) Urine Protein (NEGATIVE) mg/dL Urine Glucose (UA) (NEGATIVE) mg/dL Urine Ketones (NEGATIVE) mg/dL Urine Occult Blood (NEGATIVE) Urine Nitrite (NEGATIVE) Urine Bilirubin (NEGATIVE) Urine Urobilinogen (<2.0) EU/dL Ur Leukocyte Esterase (NEGATIVE) Urine RBC (0-2/HPF) Urine WBC (0-5/HPF) Ur Epithelial Cells (NONE-FEW) Urine Bacteria (NEGATIVE) 09/22/17 Range/Units 06:18 WBC (4.0-11.0) K/uL RBC (4.30-5.90) M/uL Hgb (12.0-16.0) g/dL Hct (36.0-46.0) % MCV (80.0-98.0) fL MCH (27.0-32.0) pg MCHC (31.0-37.0) g/dL RDW Std Deviation (28.0-62.0) fl RDW Coeff of Josselyn (11.0-15.0) % Plt Count (150-400) K/uL MPV (7.40-12.00) fL Neut % (Auto) (48.0-80.0) % Lymph % (Auto) (16.0-40.0) % Wilkes % (Auto) (0.0-15.0) % Eos % (Auto) (0.0-7.0) % Baso % (Auto) (0.0-1.5) % Neut # (Auto) (1.4-5.7) K/uL Lymph # (Auto) (0.6-2.4) K/uL Wilkes # (Auto) (0.0-0.8) K/uL Eos # (Auto) (0.0-0.7) K/uL Baso # (Auto) (0.0-0.1) K/uL Nucleated RBC % /100WBC Nucleated RBCs # K/uL INR APTT (18.6-31.3) SEC Sodium (136-145) mmol/L Potassium (3.5-5.1) mmol/L Chloride (98-107) mmol/L Carbon Dioxide (21.0-32.0) mmol/L BUN (7.0-18.0) mg/dL Creatinine (0.6-1.0) mg/dL Est Cr Clr Drug Dosing mL/min Estimated GFR (MDRD) ml/min Glucose (74-106) mg/dL Calcium (8.5-10.1) mg/dL Magnesium 2.0 (1.8-2.4) mg/dL Total Bilirubin (0.2-1.0) mg/dL AST (15-37) IU/L ALT (14-63) IU/L Alkaline Phosphatase (46-116) U/L Troponin I (0.000-0.056) ng/mL Total Protein (6.4-8.2) g/dL Albumin (3.4-5.0) g/dL Globulin (2.0-3.5) g/dL Albumin/Globulin Ratio (1.3-2.8) Vitamin B12 (193-986) pg/mL Free T4 (0.76-1.46) ng/dL TSH 3rd Generation (0.36-3.74) uIU/mL Urine Color Urine Appearance Urine pH (5.0-8.0) Ur Specific [place] (1.001-1.035) Urine Protein (NEGATIVE) mg/dL Urine Glucose (UA) (NEGATIVE) mg/dL Urine Ketones (NEGATIVE) mg/dL Urine Occult Blood (NEGATIVE) Urine Nitrite (NEGATIVE) Urine Bilirubin (NEGATIVE) Urine Urobilinogen (<2.0) EU/dL Ur Leukocyte Esterase (NEGATIVE) Urine RBC (0-2/HPF) Urine WBC (0-5/HPF) Ur Epithelial Cells (NONE-FEW) Urine Bacteria (NEGATIVE) Med Orders - Current: Current Medications Acetaminophen (Tylenol) 650 mg PO Q4H PRN PRN Reason: Pain Amlodipine Besylate (Norvasc) 2.5 mg PO DAILY [facility] Last Admin: 09/22/17 08:45 Dose: 2.5 mg Artificial Tears (Refresh Plus 0.5%) 1 each EYEBOTH DAILY PRN PRN Reason: Dry Eyes Ascorbic Acid (Vitamin C) 1,000 mg PO DAILY [facility] Last Admin: 09/22/17 08:45 Dose: 1,000 mg Aspirin (Halfprin) 81 mg PO DAILY [facility] Last Admin: 09/22/17 08:45 Dose: 81 mg Atorvastatin Calcium (Lipitor) 40 mg PO DAILY [facility] Last Admin: 09/22/17 08:45 Dose: 40 mg Calcium Carbonate/Glycine (Tums) 500 mg PO BID [facility] Last Admin: 09/22/17 08:45 Dose: 500 mg Cholecalciferol (Vitamin D3) 2,000 units PO DAILY [facility] Last Admin: 09/22/17 08:45 Dose: 2,000 units Doxepin HCl (Sinequan) 10 mg PO BEDTIME [facility] Last Admin: 09/21/17 21:27 Dose: 10 mg Furosemide (Lasix) 20 mg PO DAILY [facility] Last Admin: 09/22/17 08:45 Dose: 20 mg Gabapentin (Neurontin) 900 mg PO BID [facility] Last Admin: 09/22/17 08:45 Dose: 900 mg Heparin Sodium (Porcine) (Heparin Sodium) 5,000 units SUBCUT Q12H [facility] Last Admin: 09/22/17 04:16 Dose: 5,000 units Hydralazine HCl (Apresoline) 10 mg IVPUSH Q6H PRN PRN Reason: Hypertension Ceftriaxone Sodium/Dextrose 1 (gm/ Premix) 50 mls @ 100 mls/hr IV Q24H [facility] Last Admin: 09/21/17 15:56 Dose: 100 mls/hr Latanoprost (Xalatan 0.005% Ophth Soln) 0 ml EYELF BEDTIME [facility] Last Admin: 09/22/17 00:08 Dose: 1 drop Levothyroxine Sodium (Synthroid) 125 mcg PO DAILY@0700 [facility] Last Admin: 09/22/17 06:20 Dose: 125 mcg Mineral Oil/White Petrolatum (Lacri-Lube S.O.P Oint) 1 gm EYEBOTH ASDIRECTED PRN PRN Reason: Dry Eyes Multivitamins/Minerals/Vitamin C (Tab-A-Hugh) 1 tab PO DAILY [facility] Last Admin: 09/22/17 08:45 Dose: 1 tab Ondansetron HCl (Zofran) 4 mg IVPUSH Q4H PRN PRN Reason: Nausea Potassium Chloride (Klor-Con M20) 40 meq PO BID@0800,1200 [facility] Stop: 09/22/17 12:01 Last Admin: 09/22/17 08:44 Dose: 40 meq Prednisolone Acetate (Pred Forte 1% Ophth Susp) 0 ml EYELF QID [facility] Last Admin: 09/22/17 06:20 Dose: 1 drop Prednisone (Prednisone) 20 mg PO DAILY [facility] Last Admin: 09/22/17 08:46 Dose: 20 mg Sodium Chloride (Saline Flush) 10 ml FLUSH ASDIRECTED PRN PRN Reason: Keep Vein Open Last Admin: 09/21/17 13:54 Dose: 10 ml Sodium Chloride (Saline Flush) 2.5 ml FLUSH ASDIRECTED PRN PRN Reason: Keep Vein Open Last Admin: 09/21/17 13:54 Dose: 2.5 ml Discontinued Medications Sodium Chloride (Normal Saline) 1,000 mls @ 50 mls/hr IV ASDIRECTED RIGOBERTO Last Admin: 09/21/17 15:55 Dose: 50 mls/hr Latanoprost (Xalatan 0.005% Ophth Soln) 0 ml EYERT BEDTIME [facility] Last Admin: 09/21/17 23:28 Dose: Not Given Levothyroxine Sodium (Synthroid) 100 mcg PO DAILY@0700 [facility] Prednisolone Acetate (Pred Forte 1% Oph Susp) 0 ml EYELF QID [facility] Last Admin: 09/22/17 01:00 Dose: 1 drop Prednisone (Prednisone) 20 mg PO ONETIME ONE Stop: 09/22/17 09:05 Last Admin: 09/22/17 09:31 Dose: 20 mg - Exam General: Reports: Alert, Oriented, Cooperative, No Acute Distress Neck: Reports: Supple Lungs: Reports: Clear to Auscultation, Normal Respiratory Effort Cardiovascular: Reports: Regular Rate, Regular Rhythm GI/Abdominal Exam: Normal Bowel Sounds, Soft, Non-Tender Extremities: Normal Inspection, Normal Range of Motion, Non-Tender Neurological: Reports: No New Focal Deficit, Normal Speech, Strength Equal Bilateral, Cranial Nerves Intact Psy/Mental Status: Reports: Alert, Normal Affect, Normal Mood
== END 2017-09-22 11:51 | disposition home or self-care (01) ==
LOC: MW.ED 13:17 → MW.MS 13:54
PROVIDERS: ADMIT Internal Medicine; ATTEND Internal Medicine
DX: R41.0 Disorientation, unspecified (principal); I10 Essential (primary) hypertension; J44.9 Chronic obstructive pulmonary disease, unspecified; E78.5 Hyperlipidemia, unspecified; E03.9 Hypothyroidism, unspecified; N39.0 Urinary tract infection, site not specified; Z79.82 Long term (current) use of aspirin; Z79.899 Other long term (current) drug therapy; Z88.0 Allergy status to penicillin; Z88.5 Allergy status to narcotic agent; Z88.2 Allergy status to sulfonamides
CPT/HCPCS: 36415; 70470; 80048; 80053; 81001; 82607; 83735; 84439; 84443; 84484; 85025; 85610; 85730; 87086; 93005; 96361; 96365; 96372; 99285; A9270; G0378; J0696; J1644; J7040

== ENCOUNTER 2018-06-24 16:29 | Observation (INO) | payer MEDICARE, OTHER ==
[2018-06-24] MEDS ORDERED: Sodium Chloride 0.9% 2.5 ML Syringe FLUSH PRN (16:37)
[2018-06-24] MEDS ORDERED: Sodium Chloride 0.9% 10 ML Syringe FLUSH PRN (16:37)
[2018-06-24] MEDS ORDERED: Sodium Chloride 0.9% 1,000 ML IV ONE (16:37)
[2018-06-24] MEDS ORDERED: Ondansetron 4 MG/2 ML SDV IVPUSH ONE (16:37)
--- NOTE | 2018-06-24 16:40 | EDM.PDOC ---
ED HPI GENERAL MEDICAL PROBLEM - General Chief Complaint: Gastrointestinal Problem Stated Complaint: NAUSEA Time Seen by Provider: 06/24/18 16:34 - History of Present Illness INITIAL COMMENTS - FREE TEXT/NARRATIVE: HISTORY AND PHYSICAL: History of present illness: Patient is an 88-year-old white female presents with a concern of general malaise nausea vomiting no bowel movement 1 week. She does not report any chest pain shortness of breath fever chills or other concern Review of systems: As per history of present illness and below otherwise all systems reviewed and negative. Past medical history: As per history of present illness and as reviewed below otherwise noncontributory. Surgical history: As per history of present illness and as reviewed below otherwise noncontributory. Social history: No reported history of drug or alcohol abuse. Family history: As per history of present illness and as reviewed below otherwise noncontributory. 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 Lungs: Clear to auscultation, breath sounds equal bilaterally, chest nontender. Heart: S1S2, regular, negative for clicks, rubs, or JVD. Abdomen: Soft, nondistended, no localized tenderness. Negative for masses or hepatosplenomegaly. Negative for costovertebral tenderness. Pelvis: Stable nontender. Genitourinary: Deferred. Rectal: Deferred. Extremities: Atraumatic, negative for cords or calf pain. Neurovascular unremarkable. Neuro: Awake, alert, oriented. Cranial nerves II through XII unremarkable. Cerebellum unremarkable. Motor and sensory unremarkable throughout. Exam nonfocal. Diagnostics: CBC CMP troponin PT/INR lipase UA chest x-ray EKG CT abdomen and pelvis Therapeutics: Saline 1 L bolus Zofran 4 mg IV Impression: #1 generalized weakness #2 constipation #3 vomiting with dehydration Definitive disposition and diagnosis as appropriate pending reevaluation and review of above. - Related Data Allergies Allergy/AdvReac Type Severity Reaction Status Date / Time Penicillins Allergy Swelling Verified 09/21/17 13:43 procaine HCl [From Novocain] Allergy Difficulty Verified 09/21/17 13:43 Breathing Sulfa (Sulfonamide Allergy Cannot Verified 09/21/17 13:43 Antibiotics) Remember Home Meds: Home Meds Estrogens, Conjugated [Premarin Vaginal Crm] 1 applic VAG ASDIRECTED 08/30/17 [ History] Furosemide 20 mg PO DAILY 08/30/17 [History] Ondansetron [Zofran ODT] 4 mg PO TID PRN 08/30/17 [History] Patient's Own Medication [Ptom] 1 applic TOP BID 08/30/17 [History] guaiFENesin/Codeine Phosphate [Cheratussin AC Syrup] 1 tsp PO Q6H PRN 08/30/17 [ History] hydrOXYzine pamoate [Hydroxyzine Pamoate] 25 mg PO QID PRN 08/30/17 [History] prednisoLONE acetate [Pred Forte 1% Ophth Susp] 1 drop EYELF QID 08/30/17 [ History] Gabapentin [Neurontin] 900 mg PO BID 08/31/17 [History] Doxepin [SINEquan] 10 mg PO BEDTIME #15 cap 09/01/17 [Rx] Ascorbic Acid [C-1000] 1,000 mg PO DAILY 09/21/17 [History] Aspirin [Adult Low Dose Aspirin EC] 81 mg PO DAILY 09/21/17 [History] Calcium Citrate 400 mg PO BID 09/21/17 [History] Cholecalciferol (Vitamin D3) [Vitamin D3] 2,000 units PO DAILY 09/21/17 [History ] Denosumab [Prolia] 60 mg SQ ASDIRECTED 09/21/17 [History] Latanoprost/Pf [Latanoprost 0.005% Eye Drop] 1 drop EYERT BEDTIME 09/21/17 [ History] Mineral Oil/Petrolatum,White [Refresh P.M.] 1 applic EYEBOTH ASDIRECTED PRN [History] Multivitamin [Daily Multiple Vitamin] 1 tab PO DAILY 09/21/17 [History] PEG 400/Hypromellose/Glycerin [Artificial Tears Drops] 1 drop EYEBOTH DAILY PRN 09/21/17 [History] amLODIPine [Norvasc] 2.5 mg PO DAILY 09/21/17 [History] atorvaSTATin [Lipitor] 40 mg PO DAILY 09/21/17 [History] Cephalexin [Keflex] 250 mg PO Q12HR #12 capsule 09/22/17 [Rx] Levothyroxine 125 mcg PO ACBREAKFAST #30 tab 09/22/17 [Rx] predniSONE [Prednisone] 20 mg PO DAILY #0 09/22/17 [Rx] Past Medical History HEENT History: Reports: Impaired Vision Cardiovascular History: Reports: High Cholesterol, Hypertension Respiratory History: Reports: COPD Gastrointestinal History: Reports: Diverticulosis Genitourinary History: Reports: UTI, Recurrent HOME HEALTH NURSE History: Reports: None Musculoskeletal History: Reports: Back Pain, Chronic, Fracture, Other (See Below ) Other Musculoskeletal History: ankle fx. 2016; humerus fx. 2017. sciatica Neurological History: Reports: Other (See Below) Other Neuro History: facial nerve pain Psychiatric History: Reports: None Endocrine/Metabolic History: Reports: Hypothyroidism Hematologic History: Reports: None Immunologic History: Reports: None Oncologic (Cancer) History: Reports: None Dermatologic History: Reports: None - Infectious Disease History Infectious Disease History: Reports: None - Past Surgical History Head Surgeries/Procedures: Reports: None HEENT Surgical History: Reports: Other (See Below) Other HEENT Surgeries/Procedures: cornea transplant 5 years ago; eye infection in left eye which she is being seen by eye doctor for; multiple eye surgeries Cardiovascular Surgical History: Reports: None Respiratory Surgical History: Reports: None GI Surgical History: Reports: Appendectomy, Colonoscopy, EGD Female Surgical History: Reports: None Endocrine Surgical History: Reports: None Neurological Surgical History: Reports: None Musculoskeletal Surgical History: Reports: Other (See Below) Social & Family History - Family History Family Medical History: Noncontributory - Tobacco Use Smoking Status *Q: Never Smoker - Caffeine Use Caffeine Use: Reports: Coffee - Recreational Drug Use Recreational Drug Use: No ED ROS GENERAL - Review of Systems Review Of Systems: ROS reveals no pertinent complaints other than HPI. ED EXAM, GENERAL - Physical Exam Exam: See Below (See dictation) Course - Vital Signs Last Recorded V/S: Last Vital Signs Temp 37.1 C 06/24/18 16:31 Pulse 107 H 06/24/18 16:31 Resp 18 06/24/18 16:31 BP 137/56 L 06/24/18 16:31 Pulse Ox 96 06/24/18 16:31 - Orders/Labs/Meds Orders: Active Orders 24 hr Category Date Time Status Cardiac Monitoring [RC] . DIRECTED Care 06/24/18 16:37 Active EKG Documentation Completion [RC] STAT Care 06/24/18 16:37 Active Pulse Oximetry [RC] ASDIRECTED Care 06/24/18 16:37 Active Abdomen Pelvis wo Cont [CT] Stat Exams 06/24/18 16:37 Taken Chest 1V Frontal [CR] Stat Exams 06/24/18 16:37 Taken UA RFX SNEHA AND CULT IF INDIC [URIN] Stat Lab 06/24/18 16:37 Ordered Sodium Chloride 0.9% [Saline Flush] Med 06/24/18 16:37 Active 10 ml FLUSH ASDIRECTED PRN Sodium Chloride 0.9% [Saline Flush] Med 06/24/18 16:37 Active 2.5 ml FLUSH ASDIRECTED PRN Saline Lock Insert [OM.PC] Stat Oth 06/24/18 16:37 Ordered Medication Orders Sodium Chloride (Saline Flush) 10 ml FLUSH ASDIRECTED PRN PRN Reason: Keep Vein Open Sodium Chloride (Saline Flush) 2.5 ml FLUSH ASDIRECTED PRN PRN Reason: Keep Vein Open Labs: Laboratory Tests 06/24/18 06/24/18 Range/Units 16:48 16:48 WBC 6.64 (4.0-11.0) K/uL RBC 3.79 L (4.30-5.90) M/uL Hgb 11.8 L (12.0-16.0) g/dL Hct 37.3 (36.0-46.0) % MCV 98.4 H (80.0-98.0) fL MCH 31.1 (27.0-32.0) pg MCHC 31.6 (31.0-37.0) g/dL RDW Std Deviation 49.5 (28.0-62.0) fl RDW Coeff of Josselyn 14 (11.0-15.0) % Plt Count 225 (150-400) K/uL MPV 11.30 (7.40-12.00) fL Neut % (Auto) 58.2 (48.0-80.0) % Lymph % (Auto) 26.8 (16.0-40.0) % [place] % (Auto) 13.6 (0.0-15.0) % Eos % (Auto) 0.9 (0.0-7.0) % Baso % (Auto) 0.5 (0.0-1.5) % Neut # (Auto) 3.9 (1.4-5.7) K/uL Lymph # (Auto) 1.8 (0.6-2.4) K/uL [place] # (Auto) 0.9 H (0.0-0.8) K/uL Eos # (Auto) 0.1 (0.0-0.7) K/uL Baso # (Auto) 0.0 (0.0-0.1) K/uL Nucleated RBC % 0.0 /100WBC Nucleated RBCs # 0 K/uL Sodium 141 (136-145) mmol/L Potassium 4.2 (3.5-5.1) mmol/L Chloride 105 (98-107) mmol/L Carbon Dioxide 24.5 (21.0-32.0) mmol/L BUN 42 H (7.0-18.0) mg/dL Creatinine 1.7 H (0.6-1.0) mg/dL Est Cr Clr Drug Dosing 17.35 mL/min Estimated GFR (MDRD) 28.3 ml/min Glucose 115 H (74-106) mg/dL Calcium 10.0 (8.5-10.1) mg/dL Total Bilirubin 0.5 (0.2-1.0) mg/dL AST 18 (15-37) IU/L ALT 15 (14-63) IU/L Alkaline Phosphatase 61 (46-116) U/L Troponin I < 0.050 (0.000-0.056) ng/mL Total Protein 6.7 (6.4-8.2) g/dL Albumin 3.0 L (3.4-5.0) g/dL Globulin 3.7 (2.6-4.0) g/dL Albumin/Globulin Ratio 0.8 L (0.9-1.6) Lipase 221 (73-393) U/L Meds: Medications Generic Name Dose Route Start Last Admin Trade Name Freq PRN Reason Stop Dose Admin Sodium Chloride 10 ml 06/24/18 16:37 Saline Flush FLUSH ASDIRECTED PRN Keep Vein Open Sodium Chloride 2.5 ml 06/24/18 16:37 Saline Flush FLUSH ASDIRECTED PRN Keep Vein Open Discontinued Medications Generic Name Dose Route Start Last Admin Trade Name Freq PRN Reason Stop Dose Admin Sodium Chloride 1,000 mls @ 999 mls/hr 06/24/18 16:37 06/24/18 16:51 Normal Saline IV 06/24/18 17:37 500 mls/hr STAT ONE Administration Ondansetron HCl 4 mg 06/24/18 16:37 06/24/18 16:59 Zofran IVPUSH 06/24/18 16:38 Not Given ONETIME ONE Departure - Departure Time of Disposition: 17:48 Disposition: Refer to Observation Condition: Good Clinical Impression: Weakness, Dehydration, Constipation - Discharge Information Forms: ED Department Discharge - My Orders Last 24 Hours: My Active Orders 06/24/18 16:37 Cardiac Monitoring [RC] . DIRECTED EKG Documentation Completion [RC] STAT Pulse Oximetry [RC] ASDIRECTED Abdomen Pelvis wo Cont [CT] Stat Chest 1V Frontal [CR] Stat UA RFX SNEHA AND CULT IF INDIC [URIN] Stat Sodium Chloride 0.9% [Saline Flush] 10 ml FLUSH ASDIRECTED PRN Sodium Chloride 0.9% [Saline Flush] 2.5 ml FLUSH ASDIRECTED PRN Saline Lock Insert [OM.PC] Stat - Assessment/Plan Last 24 Hours: My Active Orders 06/24/18 16:37 Cardiac Monitoring [RC] . DIRECTED EKG Documentation Completion [RC] STAT Pulse Oximetry [RC] ASDIRECTED Abdomen Pelvis wo Cont [CT] Stat Chest 1V Frontal [CR] Stat UA RFX SNEHA AND CULT IF INDIC [URIN] Stat Sodium Chloride 0.9% [Saline Flush] 10 ml FLUSH ASDIRECTED PRN Sodium Chloride 0.9% [Saline Flush] 2.5 ml FLUSH ASDIRECTED PRN Saline Lock Insert [OM.PC] Stat
[2018-06-24 17:25] LABS: CHLORIDE,CL 105 mmol/L (98-107); SODIUM,NA 141 mmol/L (136-145)
--- NOTE | 2018-06-24 18:02 | CR ---
INDICATION: Chest pain and shortness of breath TECHNIQUE: Chest 1 views COMPARISON: 04/12/2017. FINDINGS: Cardiovascular and mediastinum: Heart size and vasculature are normal in caliber and appearance. Lungs and pleural spaces: Lungs are clear. No sign of infiltrate or mass. No sign of pleural effusion. No pneumothorax. Bones and soft tissues: No significant findings. IMPRESSION: No acute findings and no significant changes from the prior exam. Dictated by Alejandro Torre MD @ Jun 24 2018 5:59PM Signed by Dr. Alejandro Torre @ Jun 24 2018 6:00PM
[2018-06-24] MEDS ORDERED: Temazepam 15 MG Cap PO PRN (18:20)
[2018-06-24] MEDS ORDERED: Ondansetron 4 MG/2 ML SDV IVPUSH PRN (18:20)
[2018-06-24] MEDS ORDERED: Acetaminophen 325 MG Tab PO PRN (18:20)
--- NOTE | 2018-06-24 18:26 | PCM.HP ---
H&P History of Present Illness - General Date of Service: 06/24/18 Admit Problem/Dx: Admission Diagnosis/Problem Admission Diagnosis/Problem Dehydration Source of Information: Patient, Family History Limitations: Reports: No Limitations - History of Present Illness Initial Comments - Free Text/Narative: The patient is an 88-year-old lady who had presented to the emergency department with complaint of abdominal pain, nausea and vomiting and no bowel movement for 1 week. She did not report any chest pain or shortness of breath. The patient says that her abdominal pain has been predominantly in the right lower quadrant and does not seem to radiate. She has had no specific aggravating or relieving factors. The patient also says that she has had had any fever or chills. She's been weak and fatigued over the past week as well. Onset of Symptoms: Reports: Gradual Duration of Symptoms: Reports: Day(s): Location: Reports: Abdomen. Denies: Radiates to Quality: Reports: Ache, Throbbing Severity: Mild Improves with: Reports: None Worsens with: Reports: None Associated Symptoms: Reports: No Other Symptoms no pain Pain Score (Numeric/FACES): 0 - Related Data Allergies/Adverse Reactions: Allergies Allergy/AdvReac Type Severity Reaction Status Date / Time Penicillins Allergy Swelling Verified 09/21/17 13:43 procaine HCl [From Novocain] Allergy Difficulty Verified 09/21/17 13:43 Breathing Sulfa (Sulfonamide Allergy Cannot Verified 09/21/17 13:43 Antibiotics) Remember Home Medications: Home Meds Estrogens, Conjugated [Premarin Vaginal Crm] 1 applic VAG ASDIRECTED 08/30/17 [ History] Furosemide 20 mg PO DAILY 08/30/17 [History] Ondansetron [Zofran ODT] 4 mg PO TID PRN 08/30/17 [History] Patient's Own Medication [Ptom] 1 applic TOP BID 08/30/17 [History] guaiFENesin/Codeine Phosphate [Cheratussin AC Syrup] 1 tsp PO Q6H PRN 08/30/17 [ History] hydrOXYzine pamoate [Hydroxyzine Pamoate] 25 mg PO QID PRN 08/30/17 [History] prednisoLONE acetate [Pred Forte 1% Ophth Susp] 1 drop EYELF QID 08/30/17 [ History] Gabapentin [Neurontin] 900 mg PO BID 08/31/17 [History] Doxepin [SINEquan] 10 mg PO BEDTIME #15 cap 09/01/17 [Rx] Ascorbic Acid [C-1000] 1,000 mg PO DAILY 09/21/17 [History] Aspirin [Adult Low Dose Aspirin EC] 81 mg PO DAILY 09/21/17 [History] Calcium Citrate 400 mg PO BID 09/21/17 [History] Cholecalciferol (Vitamin D3) [Vitamin D3] 2,000 units PO DAILY 09/21/17 [History ] Denosumab [Prolia] 60 mg SQ ASDIRECTED 09/21/17 [History] Latanoprost/Pf [Latanoprost 0.005% Eye Drop] 1 drop EYERT BEDTIME 09/21/17 [ History] Mineral Oil/Petrolatum,White [Refresh P.M.] 1 applic EYEBOTH ASDIRECTED PRN [History] Multivitamin [Daily Multiple Vitamin] 1 tab PO DAILY 09/21/17 [History] PEG 400/Hypromellose/Glycerin [Artificial Tears Drops] 1 drop EYEBOTH DAILY PRN 09/21/17 [History] amLODIPine [Norvasc] 2.5 mg PO DAILY 09/21/17 [History] atorvaSTATin [Lipitor] 40 mg PO DAILY 09/21/17 [History] Cephalexin [Keflex] 250 mg PO Q12HR #12 capsule 09/22/17 [Rx] Levothyroxine 125 mcg PO ACBREAKFAST #30 tab 09/22/17 [Rx] predniSONE [Prednisone] 20 mg PO DAILY #0 09/22/17 [Rx] Past Medical History HEENT History: Reports: Impaired Vision Cardiovascular History: Reports: High Cholesterol, Hypertension Respiratory History: Reports: COPD Gastrointestinal History: Reports: Diverticulosis Genitourinary History: Reports: UTI, Recurrent MIXER HELPER History: Reports: None Musculoskeletal History: Reports: Back Pain, Chronic, Fracture, Other (See Below ) Other Musculoskeletal History: ankle fx. 2016; humerus fx. 2017. sciatica Neurological History: Reports: Other (See Below) Other Neuro History: facial nerve pain Psychiatric History: Reports: None Endocrine/Metabolic History: Reports: Hypothyroidism Hematologic History: Reports: None Immunologic History: Reports: None Oncologic (Cancer) History: Reports: None Dermatologic History: Reports: None - Infectious Disease History Infectious Disease History: Reports: None - Past Surgical History Head Surgeries/Procedures: Reports: None HEENT Surgical History: Reports: Other (See Below) Other HEENT Surgeries/Procedures: cornea transplant 5 years ago; eye infection in left eye which she is being seen by eye doctor for; multiple eye surgeries Cardiovascular Surgical History: Reports: None Respiratory Surgical History: Reports: None GI Surgical History: Reports: Appendectomy, Colonoscopy, EGD Female Surgical History: Reports: None Endocrine Surgical History: Reports: None Neurological Surgical History: Reports: None Musculoskeletal Surgical History: Reports: Other (See Below) Social & Family History - Family History Family Medical History: Noncontributory - Tobacco Use Smoking Status *Q: Never Smoker - Caffeine Use Caffeine Use: Reports: Coffee - Recreational Drug Use Recreational Drug Use: No - Living Situation & Occupation Living situation: Reports: , with Spouse Occupation: Retired H&P Review of Systems - Review of Systems: Review Of Systems: See Below General: Reports: Weakness HEENT: Reports: Eye Pain Pulmonary: Reports: No Symptoms Cardiovascular: Reports: No Symptoms Gastrointestinal: Reports: Abdominal Pain (RLQ), Anorexia, Constipation. Denies : Nausea, Vomiting Genitourinary: Reports: No Symptoms Musculoskeletal: Reports: Back Pain Skin: Reports: No Symptoms Psychiatric: Reports: No Symptoms Neurological: Reports: No Symptoms Hematologic/Lymphatic: Reports: No Symptoms Immunologic: Reports: No Symptoms Exam - Exam Exam: See Below - Vital Signs Vital Signs: Last Vital Signs Temp 37.1 C 06/24/18 16:31 Pulse 107 H 06/24/18 16:31 Resp 18 06/24/18 16:31 BP 137/56 L 06/24/18 16:31 Pulse Ox 96 06/24/18 16:31 Weight: 48.988 kg - Exam Quality Assessment: No: Supplemental Oxygen General: Alert, Oriented, Cooperative, Mild Distress HEENT: Conjunctiva Clear, EACs Clear, EOMI, Hearing Intact, Nares Patent. No: Mucosa Moist & [place] (Dry), PERRLA (The patient has cloudy cornea left eye with conjunctival inflammation) Neck: Supple, Trachea Midline, 2 Lungs: Clear to Auscultation, Normal Respiratory Effort Cardiovascular: Regular Rate, Regular Rhythm GI/Abdominal Exam: Normal Bowel Sounds, Soft, No Organomegaly, No Distention, Tender (Right lower quadrant). No: Guarding, Rigid, Rebound (Female) Exam: Deferred Rectal (Female) Exam: Deferred Back Exam: Normal Inspection (Age appropriate), Full Range of Motion Extremities: Normal Inspection, Normal Range of Motion, No Pedal Edema Skin: Warm, Dry, Intact Neuro Extensive - Mental Status: Alert, Oriented x3 Neuro Extensive - Motor, Sensory, Reflexes: CN II-XII Intact Psychiatric: Alert, Normal Affect, Normal Mood - Patient Data Lab Results Last 24 hrs: Laboratory Results - last 24 hr 06/24/18 06/24/18 Range/Units 16:48 16:48 WBC 6.64 (4.0-11.0) K/uL RBC 3.79 L (4.30-5.90) M/uL Hgb 11.8 L (12.0-16.0) g/dL Hct 37.3 (36.0-46.0) % MCV 98.4 H (80.0-98.0) fL MCH 31.1 (27.0-32.0) pg MCHC 31.6 (31.0-37.0) g/dL RDW Std Deviation 49.5 (28.0-62.0) fl RDW Coeff of Josselyn 14 (11.0-15.0) % Plt Count 225 (150-400) K/uL MPV 11.30 (7.40-12.00) fL Neut % (Auto) 58.2 (48.0-80.0) % Lymph % (Auto) 26.8 (16.0-40.0) % [place] % (Auto) 13.6 (0.0-15.0) % Eos % (Auto) 0.9 (0.0-7.0) % Baso % (Auto) 0.5 (0.0-1.5) % Neut # (Auto) 3.9 (1.4-5.7) K/uL Lymph # (Auto) 1.8 (0.6-2.4) K/uL [place] # (Auto) 0.9 H (0.0-0.8) K/uL Eos # (Auto) 0.1 (0.0-0.7) K/uL Baso # (Auto) 0.0 (0.0-0.1) K/uL Nucleated RBC % 0.0 /100WBC Nucleated RBCs # 0 K/uL Sodium 141 (136-145) mmol/L Potassium 4.2 (3.5-5.1) mmol/L Chloride 105 (98-107) mmol/L Carbon Dioxide 24.5 (21.0-32.0) mmol/L BUN 42 H (7.0-18.0) mg/dL Creatinine 1.7 H (0.6-1.0) mg/dL Est Cr Clr Drug Dosing 17.35 mL/min Estimated GFR (MDRD) 28.3 ml/min Glucose 115 H (74-106) mg/dL Calcium 10.0 (8.5-10.1) mg/dL Total Bilirubin 0.5 (0.2-1.0) mg/dL AST 18 (15-37) IU/L ALT 15 (14-63) IU/L Alkaline Phosphatase 61 (46-116) U/L Troponin I < 0.050 (0.000-0.056) ng/mL Total Protein 6.7 (6.4-8.2) g/dL Albumin 3.0 L (3.4-5.0) g/dL Globulin 3.7 (2.6-4.0) g/dL Albumin/Globulin Ratio 0.8 L (0.9-1.6) Lipase 221 (73-393) U/L Result Diagrams: 06/25/18 07:42 06/24/18 16:48 - Problem List (1) Diverticulitis large intestine SNOMED Code(s): 6155582 ICD Code: K57.32 - DVTRCLI OF LG INT W/O PERFORATION OR ABSCESS W/O BLEEDING Status: Acute Priority: High Current Visit: Yes Qualifiers: Diverticulitis bleeding: without bleeding Diverticulitis complication: without perforation or abscess Qualified Code(s): K57.32 - Diverticulitis of large intestine without perforation or abscess without bleeding (2) HTN (hypertension) SNOMED Code(s): 44172745 ICD Code: I10 - ESSENTIAL (PRIMARY) HYPERTENSION Status: Chronic Priority : Medium Current Visit: Yes Qualifiers: Hypertension type: essential hypertension Qualified Code(s): I10 - Essential (primary) hypertension (3) Weakness SNOMED Code(s): 03712528 ICD Code: R53.1 - WEAKNESS Status: Acute Priority: High Current Visit: Yes (4) Constipation SNOMED Code(s): 73940673 ICD Code: K59.00 - CONSTIPATION, UNSPECIFIED Status: Acute Priority: High Current Visit: Yes Qualifiers: Constipation type: slow transit constipation Qualified Code(s): K59.01 - Slow transit constipation Problem List Initiated/Reviewed/Updated: Yes Orders Last 24hrs: Active Orders 24 hr Category Date Time Status Patient Status [ADT] Stat ADT 06/24/18 17:49 Active Cardiac Monitoring [RC] . DIRECTED Care 06/24/18 16:37 Active EKG Documentation Completion [RC] STAT Care 06/24/18 16:37 Active Oxygen Therapy [RC] PRN Care 06/24/18 18:20 Ordered Pulse Oximetry [RC] ASDIRECTED Care 06/24/18 16:37 Active Up With Assistance [RC] ASDIRECTED Care 06/24/18 18:20 Ordered VTE/DVT Education [RC] PER UNIT ROUTINE Care 06/24/18 18:20 Ordered Vital Signs [RC] Q4H Care 06/24/18 18:20 Ordered OT Evaluation and Treatment [CONS] Routine Cons 06/24/18 18:20 Ordered PT Evaluation and Treatment [CONS] Routine Cons 06/24/18 18:20 Ordered Clear Liquid Diet [DIET] Diet 06/25/18 Breakfast Ordered Abdomen Pelvis wo Cont [CT] Stat Exams 06/24/18 16:37 Taken BASIC METABOLIC PANEL,BMP [CHEM] AM Lab 06/25/18 05:11 Ordered CBC WITH AUTO DIFF [HEME] AM Lab 06/25/18 05:11 Ordered MAGNESIUM [CHEM] Routine Lab 06/24/18 18:20 Ordered PHOSPHORUS [CHEM] Routine Lab 06/24/18 18:20 Ordered UA RFX SNEHA AND CULT IF INDIC [URIN] Stat Lab 06/24/18 16:37 Ordered Acetaminophen [Tylenol] Med 06/24/18 18:20 Ordered 650 mg PO Q4H PRN Heparin Sodium Med 06/24/18 18:30 Ordered 5,000 units SUBCUT Q8H Ondansetron [Zofran] Med 06/24/18 18:20 Ordered 4 mg IVPUSH Q4H PRN Sodium Chloride 0.9% [Normal Saline] 1,000 ml Med 06/24/18 18:30 Ordered IV ASDIRECTED Sodium Chloride 0.9% [Saline Flush] Med 06/24/18 16:37 Active 10 ml FLUSH ASDIRECTED PRN Sodium Chloride 0.9% [Saline Flush] Med 06/24/18 16:37 Active 2.5 ml FLUSH ASDIRECTED PRN Temazepam [Restoril] Med 06/24/18 18:20 Ordered 15 mg PO BEDTIME PRN Saline Lock Insert [OM.PC] Stat Oth 06/24/18 16:37 Ordered Resuscitation Status Routine Resus Stat 06/24/18 18:20 Ordered Medication Orders Acetaminophen (Tylenol) 650 mg PO Q4H PRN PRN Reason: Pain (Mild 1-3)/fever Heparin Sodium (Porcine) (Heparin Sodium) 5,000 units SUBCUT Q8H RIGOBERTO Sodium Chloride (Normal Saline) 1,000 mls @ 100 mls/hr IV ASDIRECTED RIGOBERTO Ondansetron HCl (Zofran) 4 mg IVPUSH Q4H PRN PRN Reason: Nausea/Vomiting Sodium Chloride (Saline Flush) 10 ml FLUSH ASDIRECTED PRN PRN Reason: Keep Vein Open Sodium Chloride (Saline Flush) 2.5 ml FLUSH ASDIRECTED PRN PRN Reason: Keep Vein Open Temazepam (Restoril) 15 mg PO BEDTIME PRN PRN Reason: Sleep Assessment/Plan Comment:: The patient is an 88-year-old lady who has some radiographic evidence on CT scan of diverticulitis in the sigmoid. The patient has been admitted secondary to this and she'll be kept on IV antibiotics consisting of Levaquin and Flagyl. The patient will also be fluid resuscitated gently with normal saline at 100 mL per hour. Patient will also be kept on clear liquid diet in the interim. The patient will kept on telemetry as well. This can be discontinued tomorrow. The patient will also have her vital signs checked every 4 hours. She is on hypertensive medication and this will be adjusted as conditions indicated. PT OT is also been ordered for the patient. She has been encouraged to ambulate. She also be kept on DVT prophylaxis with the use of heparin. Patient should be appropriate for discharge with oral medication and 1-2 days. The patient is currently in a DO NOT INTUBATE/DO NOT RESUSCITATE category and this will be honored.
[2018-06-24] MEDS ORDERED: metroNIDAZOLE/Normal Saline 500 MG in Premix Bag 1 BAG IV ONE (19:07)
[2018-06-24] MEDS ORDERED: Levofloxacin/Dextrose 5%-Water 500 MG in Premix Bag 1 BAG IV ONE (19:07)
[2018-06-24] MEDS: Heparin Sodium 5,000 Units/ML Vial SUBCUT SCH (19:30)
[2018-06-24] MEDS: Sodium Chloride 0.9% 1,000 ML IV SCH (20:22)
[2018-06-25] MEDS: Heparin Sodium 5,000 Units/ML Vial SUBCUT SCH ×2 (01:52→09:13)
[2018-06-25] MEDS ORDERED: cefTRIAXone 1 GM in Premix Bag 1 BAG IV SCH (07:15)
[2018-06-25] MEDS: Sodium Chloride 0.9% 1,000 ML IV SCH (07:43)
[2018-06-25 08:10] VITALS: BP 131/52
[2018-06-25] MEDS ORDERED: Levofloxacin/Dextrose 5%-Water 500 MG in Premix Bag 1 BAG IV SCH (08:15)
--- NOTE | 2018-06-25 09:36 | PCM.DCSUM1 ---
Discharge Summary - Hospital Course HPI Initial Comments: Admitted secondary to abdominal pain and dehydration. Diagnosis: Stroke: No - Discharge Data Discharge Date: 06/25/18 Discharge Disposition: Home, Self-Care 01 Condition: Fair - Discharge Diagnosis/Problem(s) (1) Diverticulitis large intestine SNOMED Code(s): 6532325 ICD Code: K57.32 - DVTRCLI OF LG INT W/O PERFORATION OR ABSCESS W/O BLEEDING Status: Acute Priority: High Current Visit: Yes Qualifiers: Diverticulitis bleeding: without bleeding Diverticulitis complication: without perforation or abscess Qualified Code(s): K57.32 - Diverticulitis of large intestine without perforation or abscess without bleeding (2) HTN (hypertension) SNOMED Code(s): 40350093 ICD Code: I10 - ESSENTIAL (PRIMARY) HYPERTENSION Status: Chronic Priority : Medium Current Visit: Yes Qualifiers: Hypertension type: essential hypertension Qualified Code(s): I10 - Essential (primary) hypertension (3) Weakness SNOMED Code(s): 29545870 ICD Code: R53.1 - WEAKNESS Status: Acute Priority: High Current Visit: Yes (4) Constipation SNOMED Code(s): 64168242 ICD Code: K59.00 - CONSTIPATION, UNSPECIFIED Status: Acute Priority: High Current Visit: Yes Qualifiers: Constipation type: slow transit constipation Qualified Code(s): K59.01 - Slow transit constipation (5) UTI (urinary tract infection) SNOMED Code(s): 88350880 ICD Code: N39.0 - URINARY TRACT INFECTION, SITE NOT SPECIFIED Status: Acute Current Visit: No Qualifiers: Urinary tract infection type: site unspecified Hematuria presence: without hematuria Qualified Code(s): N39.0 - Urinary tract infection, site not specified - Patient Summary/Data Consults: Consultations 06/24/18 18:20 OT Evaluation and Treatment [CONS] Routine PT Evaluation and Treatment [CONS] Routine Hospital Course: The patient is an 88-year-old lady who had presented to the emergency department with complaint of abdominal pain, nausea and vomiting and no bowel movement for [address] scan obtained to the emergency department on June 24, 2018 suggests that the patient had mild sigmoid diverticulitis. She did not report any chest pain or shortness of breath. The patient says that her abdominal pain has been predominantly in the right lower quadrant and does not seem to radiate. Initially the patient's white blood cell count was 6000. This had remained within normal limits by time of discharge. The patient also was noted to have a depressed EGFR with a BUN/creatinine of 49 and 1.7 respectively. This gave an estimated GFR of 28.3. With fluids the patient had improved her baseline creatinine to 1.2. The patient also had a mild urinary tract infection without symptoms as well. Because of the patient having a mild urinary tract infection as well as a diverticulitis she'll be discharged on Levaquin and Flagyl for 5 days. The patient is to follow-up with her primary care physician for recheck. The patient had been tolerating her diet. She has been recommended continue with the diet as tolerated. She is also to have activity as tolerated. She has been hemodynamically stable and has been afebrile. She is discharged from acute hospitalization with the recommendations listed above. - Patient Instructions Diet: Heart Healthy Diet Activity: As Tolerated - Discharge Plan *PRESCRIPTION DRUG MONITORING PROGRAM REVIEWED*: No *COPY OF PRESCRIPTION DRUG MONITORING REPORT IN PATIENT DAVID: No Prescriptions/Med Rec: levoFLOXacin [Levaquin] 500 mg PO DAILY #5 tab metroNIDAZOLE [Flagyl ER] 750 mg PO DAILY #5 tab.er Home Medications: Home Meds Estrogens, Conjugated [Premarin Vaginal Crm] 1 applic VAG ASDIRECTED 08/30/17 [ History] Furosemide 20 mg PO DAILY 08/30/17 [History] Ondansetron [Zofran ODT] 4 mg PO TID PRN 08/30/17 [History] Patient's Own Medication [Ptom] 1 applic TOP BID 08/30/17 [History] guaiFENesin/Codeine Phosphate [Cheratussin AC Syrup] 1 tsp PO Q6H PRN 08/30/17 [ History] hydrOXYzine pamoate [Hydroxyzine Pamoate] 25 mg PO QID PRN 08/30/17 [History] prednisoLONE acetate [Pred Forte 1% Ophth Susp] 1 drop EYELF QID 08/30/17 [ History] Gabapentin [Neurontin] 900 mg PO BID 08/31/17 [History] Doxepin [SINEquan] 10 mg PO BEDTIME #15 cap 09/01/17 [Rx] Ascorbic Acid [C-1000] 1,000 mg PO DAILY 09/21/17 [History] Aspirin [Adult Low Dose Aspirin EC] 81 mg PO DAILY 09/21/17 [History] Calcium Citrate 400 mg PO BID 09/21/17 [History] Cholecalciferol (Vitamin D3) [Vitamin D3] 2,000 units PO DAILY 09/21/17 [History ] Denosumab [Prolia] 60 mg SQ ASDIRECTED 09/21/17 [History] Latanoprost/Pf [Latanoprost 0.005% Eye Drop] 1 drop EYERT BEDTIME 09/21/17 [ History] Mineral Oil/Petrolatum,White [Refresh P.M.] 1 applic EYEBOTH ASDIRECTED PRN [History] Multivitamin [Daily Multiple Vitamin] 1 tab PO DAILY 09/21/17 [History] PEG 400/Hypromellose/Glycerin [Artificial Tears Drops] 1 drop EYEBOTH DAILY PRN 09/21/17 [History] amLODIPine [Norvasc] 2.5 mg PO DAILY 09/21/17 [History] atorvaSTATin [Lipitor] 40 mg PO DAILY 09/21/17 [History] Levothyroxine 125 mcg PO ACBREAKFAST #30 tab 09/22/17 [Rx] predniSONE [Prednisone] 20 mg PO DAILY #0 09/22/17 [Rx] levoFLOXacin [Levaquin] 500 mg PO DAILY #5 tab 06/25/18 [Rx] metroNIDAZOLE [Flagyl ER] 750 mg PO DAILY #5 tab.er 06/25/18 [Rx] Oxygen Therapy Mode: Room Air Patient Handouts: Levofloxacin tablets, Metronidazole tablets or capsules Referrals: James Foster MD [Physician] - (Please call the clinic tomorrow for a follow appointment after 1 week. ) - Discharge Summary/Plan Comment DC Time >30 min.: Yes - General Info Date of Service: 06/25/18 Admission Dx/Problem (Free Text: Admission Diagnosis/Problem Admission Diagnosis/Problem Dehydration, diverticulitis Subjective Update: Doing much better today. Pain controlled. Patient feels like she can go home. Functional Status: Reports: Pain Controlled - Review of Systems General: Reports: No Symptoms HEENT: Reports: No Symptoms Pulmonary: Reports: No Symptoms Cardiovascular: Reports: No Symptoms Gastrointestinal: Reports: No Symptoms Genitourinary: Reports: No Symptoms Musculoskeletal: Reports: No Symptoms Skin: Reports: No Symptoms Neurological: Reports: No Symptoms Psychiatric: Reports: No Symptoms - Patient Data Vitals - Most Recent: Last Vital Signs Temp 36.7 C 06/25/18 08:00 Pulse 88 06/25/18 08:00 Resp 16 06/25/18 08:00 BP 131/52 L 06/25/18 08:00 Pulse Ox 95 06/25/18 08:00 Weight - Most Recent: 48.988 kg I&O - Last 24 hours: Intake & Output 06/24/18 06/25/18 06/25/18 22:59 06:59 14:59 Intake Total 1150 150 Output Total 60 Balance 1090 150 Lab Results - Last 24 hrs: Laboratory Results - last 24 hr 06/24/18 06/24/18 06/24/18 Range/Units 16:48 16:48 16:48 WBC 6.64 (4.0-11.0) K/uL RBC 3.79 L (4.30-5.90) M/uL Hgb 11.8 L (12.0-16.0) g/dL Hct 37.3 (36.0-46.0) % MCV 98.4 H (80.0-98.0) fL MCH 31.1 (27.0-32.0) pg MCHC 31.6 (31.0-37.0) g/dL RDW Std Deviation 49.5 (28.0-62.0) fl RDW Coeff of Josselyn 14 (11.0-15.0) % Plt Count 225 (150-400) K/uL MPV 11.30 (7.40-12.00) fL Neut % (Auto) 58.2 (48.0-80.0) % Lymph % (Auto) 26.8 (16.0-40.0) % [place] % (Auto) 13.6 (0.0-15.0) % Eos % (Auto) 0.9 (0.0-7.0) % Baso % (Auto) 0.5 (0.0-1.5) % Neut # (Auto) 3.9 (1.4-5.7) K/uL Lymph # (Auto) 1.8 (0.6-2.4) K/uL [place] # (Auto) 0.9 H (0.0-0.8) K/uL Eos # (Auto) 0.1 (0.0-0.7) K/uL Baso # (Auto) 0.0 (0.0-0.1) K/uL Nucleated RBC % 0.0 /100WBC Nucleated RBCs # 0 K/uL Sodium 141 (136-145) mmol/L Potassium 4.2 (3.5-5.1) mmol/L Chloride 105 (98-107) mmol/L Carbon Dioxide 24.5 (21.0-32.0) mmol/L BUN 42 H (7.0-18.0) mg/dL Creatinine 1.7 H (0.6-1.0) mg/dL Est Cr Clr Drug Dosing 17.35 mL/min Estimated GFR (MDRD) 28.3 ml/min Glucose 115 H (74-106) mg/dL Calcium 10.0 (8.5-10.1) mg/dL Phosphorus 3.2 (2.6-4.7) mg/dL Magnesium 1.9 (1.8-2.4) mg/dL Total Bilirubin 0.5 (0.2-1.0) mg/dL AST 18 (15-37) IU/L ALT 15 (14-63) IU/L Alkaline Phosphatase 61 (46-116) U/L Troponin I < 0.050 (0.000-0.056) ng/mL Total Protein 6.7 (6.4-8.2) g/dL Albumin 3.0 L (3.4-5.0) g/dL Globulin 3.7 (2.6-4.0) g/dL Albumin/Globulin Ratio 0.8 L (0.9-1.6) Lipase 221 (73-393) U/L Urine Color Urine Appearance Urine pH (5.0-8.0) Ur Specific [place] (1.001-1.035) Urine Protein (NEGATIVE) mg/dL Urine Glucose (UA) (NEGATIVE) mg/dL Urine Ketones (NEGATIVE) mg/dL Urine Occult Blood (NEGATIVE) Urine Nitrite (NEGATIVE) Urine Bilirubin (NEGATIVE) Urine Ictotest Urine Urobilinogen (<2.0) EU/dL Ur Leukocyte Esterase (NEGATIVE) Urine RBC (0-2/HPF) Urine WBC (0-5/HPF) Ur Epithelial Cells (NONE-FEW) Urine Bacteria (NEGATIVE) Urine Mucus (NONE-MOD) 06/25/18 06/25/18 06/25/18 Range/Units 01:30 07:42 07:42 WBC 5.34 (4.0-11.0) K/uL RBC 3.07 L (4.30-5.90) M/uL Hgb 9.8 L (12.0-16.0) g/dL Hct 30.4 L (36.0-46.0) % MCV 99.0 H (80.0-98.0) fL MCH 31.9 (27.0-32.0) pg MCHC 32.2 (31.0-37.0) g/dL RDW Std Deviation 49.5 (28.0-62.0) fl RDW Coeff of [place]oss[place] 14 (11.0-15.0) % Plt Count 154 (150-400) K/uL MPV 10.90 (7.40-12.00) fL Neut % (Auto) 59.2 (48.0-80.0) % Lymph % (Auto) 28.3 (16.0-40.0) % [place] % (Auto) 11.0 (0.0-15.0) % Eos % (Auto) 1.1 (0.0-7.0) % Baso % (Auto) 0.4 (0.0-1.5) % Neut # (Auto) 3.2 (1.4-5.7) K/uL Lymph # (Auto) 1.5 (0.6-2.4) K/uL [place] # (Auto) 0.6 (0.0-0.8) K/uL Eos # (Auto) 0.1 (0.0-0.7) K/uL Baso # (Auto) 0.0 (0.0-0.1) K/uL Nucleated RBC % 0.0 /100WBC Nucleated RBCs # 0 K/uL Sodium 143 (136-145) mmol/L Potassium 3.8 (3.5-5.1) mmol/L Chloride 110 H (98-107) mmol/L Carbon Dioxide 23.8 (21.0-32.0) mmol/L BUN 29 H (7.0-18.0) mg/dL Creatinine 1.2 H (0.6-1.0) mg/dL Est Cr Clr Drug Dosing 24.56 mL/min Estimated GFR (MDRD) 42.3 ml/min Glucose 91 (74-106) mg/dL Calcium 8.9 (8.5-10.1) mg/dL Phosphorus (2.6-4.7) mg/dL Magnesium (1.8-2.4) mg/dL Total Bilirubin (0.2-1.0) mg/dL AST (15-37) IU/L ALT (14-63) IU/L Alkaline Phosphatase (46-116) U/L Troponin I (0.000-0.056) ng/mL Total Protein (6.4-8.2) g/dL Albumin (3.4-5.0) g/dL Globulin (2.6-4.0) g/dL Albumin/Globulin Ratio (0.9-1.6) Lipase (73-393) U/L Urine Color YELLOW Urine Appearance CLOUDY Urine pH 5.0 (5.0-8.0) Ur Specific [place] 1.020 (1.001-1.035) Urine Protein NEGATIVE (NEGATIVE) mg/dL Urine Glucose (UA) NEGATIVE (NEGATIVE) mg/dL Urine Ketones TRACE H (NEGATIVE) mg/dL Urine Occult Blood NEGATIVE (NEGATIVE) Urine Nitrite NEGATIVE (NEGATIVE) Urine Bilirubin SMALL H (NEGATIVE) Urine Ictotest NEGATIVE Urine Urobilinogen 0.2 (<2.0) EU/dL Ur Leukocyte Esterase SMALL H (NEGATIVE) Urine RBC NONE SEEN (0-2/HPF) Urine WBC 3-5 (0-5/HPF) Ur Epithelial Cells MANY (NONE-FEW) Urine Bacteria 3+ H (NEGATIVE) Urine Mucus LIGHT (NONE-MOD) Med Orders - Current: Current Medications Acetaminophen (Tylenol) 650 mg PO Q4H PRN PRN Reason: Pain (Mild 1-3)/fever Heparin Sodium (Porcine) (Heparin Sodium) 5,000 units SUBCUT Q8H [facility] Last Admin: 06/25/18 09:13 Dose: 5,000 units Sodium Chloride (Normal Saline) 1,000 mls @ 100 mls/hr IV ASDIRECTED [facility] Last Admin: 06/25/18 07:43 Dose: 100 mls/hr Levofloxacin/Dextrose 500 mg/ (Premix) 100 mls @ 100 mls/hr IV Q48H [facility] Last Admin: 06/25/18 09:10 Dose: 100 mls/hr Metronidazole 500 mg/ Premix 100 mls @ 100 mls/hr IV QID RIGOBERTO Ondansetron HCl (Zofran) 4 mg IVPUSH Q4H PRN PRN Reason: Nausea/Vomiting Sodium Chloride (Saline Flush) 10 ml FLUSH ASDIRECTED PRN PRN Reason: Keep Vein Open Sodium Chloride (Saline Flush) 2.5 ml FLUSH ASDIRECTED PRN PRN Reason: Keep Vein Open Temazepam (Restoril) 15 mg PO BEDTIME PRN PRN Reason: Sleep Last Admin: 06/25/18 03:01 Dose: 15 mg Discontinued Medications Sodium Chloride (Normal Saline) 1,000 mls @ 999 mls/hr IV STAT ONE Stop: 06/24/18 17:37 Last Admin: 06/24/18 16:51 Dose: 500 mls/hr Levofloxacin/Dextrose 500 mg/ (Premix) 100 mls @ 100 mls/hr IV ONETIME ONE Stop: 06/24/18 20:06 Last Admin: 06/24/18 19:20 Dose: 100 mls/hr Metronidazole 500 mg/ Premix 100 mls @ 100 mls/hr IV ONETIME ONE Stop: 06/24/18 20:06 Last Admin: 06/24/18 20:38 Dose: 100 mls/hr Ceftriaxone Sodium/Dextrose 1 (gm/ Premix) 50 mls @ 100 mls/hr IV Q24H [facility] Last Admin: 06/25/18 08:05 Dose: 100 mls/hr Ondansetron HCl (Zofran) 4 mg IVPUSH ONETIME ONE Stop: 06/24/18 16:38 Last Admin: 06/24/18 16:59 Dose: Not Given - Exam Quality Assessment: Denies: Supplemental Oxygen General: Reports: Alert, Oriented, Cooperative, No Acute Distress HEENT: Reports: EOMI. Denies: Pupils Equal (Blind left eye), Pupils Reactive, Mucous Membr. Moist/[place] (Dry) Neck: Reports: Supple, Trachea Midline Lungs: Reports: Clear to Auscultation, Normal Respiratory Effort Cardiovascular: Reports: Regular Rate, Regular Rhythm GI/Abdominal Exam: Normal Bowel Sounds, Soft, Non-Tender, No Distention (Female) Exam: Deferred Rectal (Female) Exam: Deferred Back Exam: Reports: Normal Inspection (Age appropriate) Extremities: Normal Inspection, No Pedal Edema Skin: Reports: Warm, Dry, Intact Neurological: Reports: No New Focal Deficit Psy/Mental Status: Reports: Alert, Normal Affect, Normal Mood
[2018-06-25] MEDS ORDERED: metroNIDAZOLE/Normal Saline 500 MG in Premix Bag 1 BAG IV SCH (12:00)
--- NOTE | 2018-06-26 14:12 | CT ---
EXAM DATE: 06/24/18 PATIENT'S AGE: 88 Patient: ANNA SCHULTZ Facility: [facility] Site . Site : [id number] Study: CT-Abdomen/Pelvis [id number]/20/2019 5:35:02 PM Ordering Physician: Alecia Roper Final Report: INDICATION: pain, vomiting x 1 day, no BM x [address] ABDOMEN AND PELVIS WITHOUT CONTRAST TECHNIQUE: Multidetector CT imaging was performed through the abdomen and pelvis without intravenous contrast administration. Coronal and sagittal reconstructions were generated. COMPARISON: 09/20/2015 CT abdomen and pelvis. FINDINGS: Lower chest: Lung bases are clear. Liver: Within normal limits. Gallbladder and bile ducts: Nonspecific mild gallbladder distention. No gallbladder wall thickening or calcified gallstones. No biliary dilation identified. Pancreas: Unremarkable. Spleen: Normal. Adrenals: No nodules or masses. Kidneys, ureters, and urinary bladder: No urinary tract stones or hydronephrosis. Small cortical cyst along the lateral aspect of the lower pole of the right kidney. No bladder mass or definite wall thickening. Gastrointestinal tract: Normal caliber small bowel without wall thickening or obstruction. Appendix not identified. Multiple colon diverticula, especially numerous in the sigmoid. Mild wall thickening of the sigmoid colon with adjacent fat stranding, consistent with diverticulitis. Vascular structures: Normal caliber abdominal aorta with moderate aortoiliac atherosclerotic calcifications. Peritoneum: No free air, abscess, or significant free fluid. Lymph nodes: No pathologically enlarged nodes identified. Reproductive organs: Status post hysterectomy. 1.9 centimeter left adnexal cystic lesion, likely an ovarian cyst, apparently new from before. Bones: Diffuse osteopenia. Spinal degenerative changes. IMPRESSION: 1. Mild diverticulitis of the sigmoid colon. No evidence of perforation or abscess. 2. 1.9 centimeter probable left ovarian cyst. Followup pelvic ultrasound is suggested. 3. Nonacute additional findings as detailed above. CUCA CORTÉS MD [employer] Dictated by Miky Cortés MD @ 06/24/2018 6:58:46 PM Dictated by: Miky Cortés MD @ 06/24/2018 18:59:04 Signed by: Miky Cortés MD @06/24/2018 6:59:04 PM (Electronic Signature) Report Signed by Proxy. MTDD
== END 2018-06-25 11:15 | disposition home or self-care (01) ==
LOC: MW.ED 16:29 → MW.MS 17:49
PROVIDERS: ADMIT Internal Medicine; ATTEND Internal Medicine
DX: K57.32 Diverticulitis of large intestine without perforation or abscess without bleeding (principal); K59.01 Slow transit constipation; N39.0 Urinary tract infection, site not specified; I10 Essential (primary) hypertension; J44.9 Chronic obstructive pulmonary disease, unspecified; E78.00 Pure hypercholesterolemia, unspecified; E03.9 Hypothyroidism, unspecified; R53.1 Weakness; Z79.2 Long term (current) use of antibiotics; Z79.82 Long term (current) use of aspirin; Z79.899 Other long term (current) drug therapy
CPT/HCPCS: 36415; 71045; 74176; 80048; 80053; 81001; 83690; 83735; 84100; 84484; 85025; 87086; 93005; 96361; 96365; 96367; 96372; 96376; 99285; A9270; G0378; J0696; J1644; J1956; J3490; J7040; 99284

== ENCOUNTER 2019-03-29 12:40 | Emergency (ER) | payer MEDICARE, OTHER ==
[2019-03-29] MEDS ORDERED: Sodium Chloride 0.9% 1,000 ML IV ONE (13:04)
[2019-03-29 13:45] LABS: BLOOD UREA NITROGEN,BUN 26 mg/dL (7.0-18.0); CARBON DIOXIDE,CO2 27.2 mmol/L (21.0-32.0); CHLORIDE,CL 109 mmol/L (98-107); GLUCOSE RANDOM 93 mg/dL (74-106); POTASSIUM,K 3.6 mmol/L (3.5-5.1); SODIUM,NA 145 mmol/L (136-145)
--- NOTE | 2019-03-29 14:22 | CT ---
Head CT Technique: Multiple axial sections through the brain were obtained. Intravenous contrast was not utilized. Comparison: Prior head CT study of 09/21/17. Findings: Ventricles along with basal cisterns and sulci over the convexities are moderately prominent. Minimal diminished density is noted within the periventricular white matter compatible with small vessel ischemic demyelination change. No other abnormal parenchymal densities are seen. No evidence of intracranial hemorrhage. No midline shift or mass effect is appreciated. Bone window settings were reviewed. Minimal areas of mucosal thickening within the ethmoid and frontal sinuses are noted. Minimal mucosal thickening is seen within the left maxillary sinus. Visualized mastoid sinuses are clear. No acute calvarial abnormality is seen. Impression: 1. Senescent change as noted above. 2. Sinus findings which are believed to be incidental. 3. No acute intracranial abnormality is appreciated. Diagnostic code #2
--- NOTE | 2019-03-29 15:17 | EDM.PDOC ---
ED HPI GENERAL MEDICAL PROBLEM - General Chief Complaint: General Stated Complaint: AMB Time Seen by Provider: 03/29/19 12:58 - History of Present Illness INITIAL COMMENTS - FREE TEXT/NARRATIVE: Patient is from residential complaint of transient left arm numbness and then change her complaint when she arrived she was asymptomatic on arrival patient then does not know what her complaint was and does not know why she is here she then complains of rash and then complains of lower back pain. Patient now denies any physical complaints and no distress. Unknown if patient has baseline dementia. Patient appears in no distress is cooperative and pleasant. Denies falling however appears to be a fairly poor historian mid back, behind knees Pain Score (Numeric/FACES): 10 - Related Data Allergies Allergy/AdvReac Type Severity Reaction Status Date / Time ciprofloxacin Allergy Cannot Verified 03/29/19 12:49 Remember erythromycin base Allergy Cannot Verified 03/29/19 12:49 Remember ofloxacin [From Floxin] Allergy Cannot Verified 03/29/19 12:49 Remember Penicillins Allergy Swelling Verified 09/21/17 13:43 procaine [From Novocain] Allergy Cannot Verified 03/29/19 12:49 Remember procaine HCl [From Novocain] Allergy Difficulty Verified 09/21/17 13:43 Breathing quinine Allergy Cannot Verified 03/29/19 12:49 Remember Sulfa (Sulfonamide Allergy Cannot Verified 09/21/17 13:43 Antibiotics) Remember lantanoprost Allergy Cannot Uncoded 03/29/19 12:49 Remember Home Meds: Home Meds Ondansetron [Zofran ODT] 4 mg PO Q8H PRN 08/30/17 [History] Aspirin [Adult Low Dose Aspirin EC] 81 mg PO DAILY 09/21/17 [History] Cholecalciferol (Vitamin D3) [Vitamin D3] 1,000 units PO DAILY 09/21/17 [History ] PEG 400/Hypromellose/Glycerin [Artificial Tears Drops] 1 drop EYEBOTH QID PRN [History] Acetaminophen [Acetaminophen Extra Strength] 500 mg PO TID 03/29/19 [History] Acyclovir 400 mg PO BID 03/29/19 [History] Betamethasone/Propylene Glyc [Betamethasone DP Aug 0.05%] 1 appful TOP BID PRN 03/29/19 [History] Bisacodyl [Dulcolax] 10 mg RC DAILY PRN 03/29/19 [History] Carbamide Peroxide [Debrox] 3 drop EARBOTH Q12H PRN 03/29/19 [History] Docusate Sodium [Colace] 100 mg PO DAILY PRN 03/29/19 [History] Fluticasone Furoate [Flonase Sensimist] 1 spray NS DAILY PRN 03/29/19 [History] Levothyroxine [Synthroid] 88 mcg PO ACBREAKFAST 03/29/19 [History] Loperamide [Imodium] 2 mg PO Q6H PRN 03/29/19 [History] Magnesium Hydroxide [Milk of Magnesia] 30 ml PO DAILY PRN 03/29/19 [History] Potassium Gluconate 99 mg PO DAILY 03/29/19 [History] Tobramycin/Dexamethasone [Tobradex Eye Ointment] 1 appful EYELF QID 03/29/19 [ History] Tobramycin/Dexamethasone [Tobradex Eye Ointment] 1 appful EYERT BID 03/29/19 [ History] Past Medical History HEENT History: Reports: Impaired Vision Cardiovascular History: Reports: High Cholesterol, Hypertension Respiratory History: Reports: COPD Gastrointestinal History: Reports: Diverticulosis Genitourinary History: Reports: UTI, Recurrent C4 PLANNER History: Reports: None Musculoskeletal History: Reports: Back Pain, Chronic, Fracture, Other (See Below ) Other Musculoskeletal History: ankle fx. 2016; humerus fx. 2017. sciatica. generalized weakness Neurological History: Reports: Other (See Below) Other Neuro History: facial nerve pain Psychiatric History: Reports: None Endocrine/Metabolic History: Reports: Hypothyroidism Hematologic History: Reports: None Immunologic History: Reports: None Oncologic (Cancer) History: Reports: None Dermatologic History: Reports: None - Infectious Disease History Infectious Disease History: Reports: None - Past Surgical History Head Surgeries/Procedures: Reports: None HEENT Surgical History: Reports: Other (See Below) Other HEENT Surgeries/Procedures: cornea transplant 5 years ago; eye infection in left eye which she is being seen by eye doctor for; multiple eye surgeries Cardiovascular Surgical History: Reports: None Respiratory Surgical History: Reports: None GI Surgical History: Reports: Appendectomy, Colonoscopy, EGD Female Surgical History: Reports: None Endocrine Surgical History: Reports: None Neurological Surgical History: Reports: None Musculoskeletal Surgical History: Reports: Other (See Below) Social & Family History - Family History Family Medical History: Noncontributory - Tobacco Use Smoking Status *Q: Never Smoker - Caffeine Use Caffeine Use: Reports: Coffee - Recreational Drug Use Recreational Drug Use: No - Living Situation & Occupation Living situation: Reports: , with Spouse Occupation: Retired ED ROS GENERAL - Review of Systems Review Of Systems: See Below Constitutional: Reports: No Symptoms HEENT: Reports: No Symptoms Respiratory: Reports: No Symptoms Cardiovascular: Reports: No Symptoms Endocrine: Reports: No Symptoms GI/Abdominal: Reports: No Symptoms Musculoskeletal: Reports: No Symptoms Skin: Reports: No Symptoms Neurological: Reports: No Symptoms Psychiatric: Reports: No Symptoms Free Text/Narrative/Comment: Patient currently denies any symptoms ED EXAM, GENERAL - Physical Exam Exam: See Below Exam Limited By: Other (Possible dementia) General Appearance: Alert, No Apparent Distress Ears: Normal External Exam, Normal Canal, Hearing Grossly Normal, Normal TMs Ear Exam: Bilateral Ear: Auricle Normal, Canal Normal, TM normal Nose: Normal Inspection, Normal Mucosa, No Blood Throat/Mouth: Normal Inspection, Normal Lips, Normal Teeth, Normal Gums, Normal Oropharynx, Normal Voice, No Airway Compromise Head: Atraumatic, Normocephalic Neck: Normal Inspection, Supple, Non-Tender, Full Range of Motion Respiratory/Chest: No Respiratory Distress, Lungs Clear, Normal Breath Sounds, No Accessory Muscle Use, Chest Non-Tender Cardiovascular: Normal Peripheral Pulses, Regular Rate, Rhythm, No Edema, No Gallop, No JVD, No Murmur, No Rub GI/Abdominal: Normal Bowel Sounds, Soft, Non-Tender, No Organomegaly, No Distention, No Abnormal Bruit, No Mass Back Exam: Normal Inspection, Full Range of Motion, NT Extremities: No: Non-Tender, Pedal Edema Neurological: Alert, CN II-XII Intact, No Motor/Sensory Deficits, Other (NIH stroke scale 0) Psychiatric: Normal Mood Skin Exam: Warm, Dry Course - Vital Signs Last Recorded V/S: Last Vital Signs Temp 98.1 F 03/29/19 12:43 Pulse 88 03/29/19 12:43 Resp 20 03/29/19 12:43 BP 226/91 H 03/29/19 12:43 Pulse Ox 97 03/29/19 12:43 - Orders/Labs/Meds Labs: Laboratory Tests 03/29/19 03/29/19 03/29/19 Range/Units 13:04 13:04 13:34 WBC 5.73 (4.0-11.0) K/uL RBC 3.26 L (4.30-5.90) M/uL Hgb 10.4 L (12.0-16.0) g/dL Hct 31.8 L (36.0-46.0) % MCV 97.5 (80.0-98.0) fL MCH 31.9 (27.0-32.0) pg MCHC 32.7 (31.0-37.0) g/dL RDW Std Deviation 48.9 (28.0-62.0) fl RDW Coeff of Josselyn 14 (11.0-15.0) % Plt Count 167 (150-400) K/uL MPV 10.50 (7.40-12.00) fL Neut % (Auto) 59.7 (48.0-80.0) % Lymph % (Auto) 30.7 (16.0-40.0) % [place] % (Auto) 8.4 (0.0-15.0) % Eos % (Auto) 0.7 (0.0-7.0) % Baso % (Auto) 0.5 (0.0-1.5) % Neut # (Auto) 3.4 (1.4-5.7) K/uL Lymph # (Auto) 1.8 (0.6-2.4) K/uL [place] # (Auto) 0.5 (0.0-0.8) K/uL Eos # (Auto) 0.0 (0.0-0.7) K/uL Baso # (Auto) 0.0 (0.0-0.1) K/uL Nucleated RBC % 0.0 /100WBC Nucleated RBCs # 0 K/uL Sodium 145 (136-145) mmol/L Potassium 3.6 (3.5-5.1) mmol/L Chloride 109 H (98-107) mmol/L Carbon Dioxide 27.2 (21.0-32.0) mmol/L BUN 26 H (7.0-18.0) mg/dL Creatinine 1.3 H (0.6-1.0) mg/dL Est Cr Clr Drug Dosing 22.48 mL/min Estimated GFR (MDRD) 38.6 ml/min Glucose 93 (74-106) mg/dL Calcium 9.3 (8.5-10.1) mg/dL Total Bilirubin 0.3 (0.2-1.0) mg/dL AST 24 (15-37) IU/L ALT 27 (14-63) IU/L Alkaline Phosphatase 67 (46-116) U/L Troponin I < 0.050 (0.000-0.056) ng/mL Total Protein 6.7 (6.4-8.2) g/dL Albumin 3.5 (3.4-5.0) g/dL Globulin 3.2 (2.6-4.0) g/dL Albumin/Globulin Ratio 1.1 (0.9-1.6) Urine Color YELLOW Urine Appearance CLEAR Urine pH 6.5 (5.0-8.0) Ur Specific [place] 1.010 (1.001-1.035) Urine Protein NEGATIVE (NEGATIVE) mg/dL Urine Glucose (UA) NEGATIVE (NEGATIVE) mg/dL Urine Ketones NEGATIVE (NEGATIVE) mg/dL Urine Occult Blood NEGATIVE (NEGATIVE) Urine Nitrite NEGATIVE (NEGATIVE) Urine Bilirubin NEGATIVE (NEGATIVE) Urine Urobilinogen 0.2 (<2.0) EU/dL Ur Leukocyte Esterase NEGATIVE (NEGATIVE) Meds: Medications Discontinued Medications Generic Name Dose Route Start Last Admin Trade Name Freq PRN Reason Stop Dose Admin Sodium Chloride 1,000 mls @ 999 mls/hr 03/29/19 13:04 03/29/19 13:42 Normal Saline IV 03/29/19 14:04 999 mls/hr .Bolus ONE Administration Departure - Departure Time of Disposition: 15:16 Disposition: Home, Self-Care 01 Condition: Good Clinical Impression: Paresthesia of arm - Discharge Information Instructions: Paresthesia, [id number] Referrals: PCP,Unknown [Primary Care Provider] - Sepsis Event Note - Evaluation Sepsis Screening Result: No Definite Risk - Focused Exam Vital Signs: Vital Signs Temp Pulse Resp BP Pulse Ox 03/29/19 12:43 98.1 F 88 20 226/91 H 97 Date Exam was Performed: 03/29/19 Time Exam was Performed: 15:12
[2019-03-29 19:54] VITALS: BP 189/68; PULSE 71
== END 2019-03-29 15:31 | disposition home or self-care (01) ==
LOC: MW.ED 12:40
DX: R20.2 Paresthesia of skin (principal); I10 Essential (primary) hypertension; E78.00 Pure hypercholesterolemia, unspecified; J45.909 Unspecified asthma, uncomplicated; J44.9 Chronic obstructive pulmonary disease, unspecified; E03.9 Hypothyroidism, unspecified; Z79.82 Long term (current) use of aspirin; Z79.890 Hormone replacement therapy; Z88.1 Allergy status to other antibiotic agents; Z88.0 Allergy status to penicillin; Z88.2 Allergy status to sulfonamides; Z88.4 Allergy status to anesthetic agent; Z88.8 Allergy status to other drugs, medicaments and biological substances
CPT/HCPCS: 36415; 70450; 80053; 81003; 84484; 85025; 96360; 99285; J7030; 99284